=== PATIENT | male | born 2005 | race Caucasian/White ===

== ENCOUNTER → 2024-05-15 | Outpatient (CLI) | payer BC, SELFPAY ==
[2024-05-15 09:43] LABS: Basophils # (Auto) 0.1 Thou/mm3 (0.0-0.2); Basophils % (Auto) 1 % (0-2.5); Eosinophils # (Auto) 0.3 Thou/mm3 (0.0-0.5); Eosinophils % (Auto) 4 % (0-10); Hematocrit 42.3 % (41.0-53.0); Hemoglobin 14.3 g/dL (13.5-16.0); Immature Granulocytes % (Auto) 2 % (0-0); Immature Granulocytes Auto 0.13 Thou/mm3 (0.00-0.00); Lymphocytes # (Auto) 2.5 Thou/mm3 (1.0-4.8); Lymphocytes % (Auto) 30 % (10-50); Mean Corpuscular HGB Conc 33.8 g/dl (31.0-37.0); Mean Corpuscular Hemoglobin 30.7 pg (25.0-35.0); Mean Corpuscular Volume 91 fL (80-100); Monocytes # (Auto) 0.8 Thou/mm3 (0.0-0.8); Monocytes % (Auto) 9 % (0-12); Neutrophils # (Auto) 4.6 Thou/mm3 (1.8-7.7); Neutrophils % (Auto) 55 % (37-80); Nucleated Red Blood Cell % 0 /100 WBC (0); Platelet Count 264 Thou/mm3 (140-440); Red Blood Count 4.66 Miln/mm3 (4.50-5.90); White Blood Count 8.4 Thou/mm3 (3.8-10.6)
[2024-05-15 09:58] LABS: Alanine Aminotransferase 60 U/L (10-49); Albumin, Serum 4.7 gm/dL (3.5-5.0); Albumin/Globulin Ratio 1.7 (1.2-2.2); Alkaline Phosphatase 79 U/L (46-116); Anion Gap 7 (7-16); Aspartate Amino Transferase 36 U/L (0-34); BUN/Creatinine Ratio 13 Ratio (12-20); Bilirubin,Total 0.3 mg/dL (0.3-1.2); Blood Urea Nitrogen 10 mg/dL (9-23); Calcium 10.8 mg/dL (8.3-10.6); Calcium (Corrected) 10.8 mg/dL (8.5-10.1); Carbon Dioxide 26.7 mMol/L (20.0-31.0); Chloride 105 mMol/L (98-107); Creatinine (Component) 0.8 mg/dL (0.6-1.3); Globulin 2.8 gm/dL (2.3-3.5); Glucose 98 mg/dL (74-106); Osmolality,Calculated 276 (275-295); Potassium 4.3 mMol/L (3.4-5.1); Sodium 139 mMol/L (136-145); Thyroid Stimulating Hormone 3.13 uIU/mL (0.55-4.78); Total Protein 7.5 gm/dL (5.7-8.2); eGFR > 60 See Note
[2024-05-15 10:01] LABS: Lithium 1.17 mEq/L (1.00-1.20)
[2024-05-15 10:10] LABS: Glucose Estimated Average 91 mg/dL (80-131); Hemoglobin A1C 4.8 % Hgb (4.8-6.0)
[2024-05-15 11:15] LABS: Urea Breath Test Negative (Negative)
[2024-05-19 06:20] LABS: Valporic Acid (Depak)* 48.4 mg/L (50.0-100.0)
== END | disposition home or self-care (01) ==
LOC: COPL 08:38
PROVIDERS: PCP Family Medicine; Referring Provider Psychiatry & Neurology Child & Adolescent Psychiatry; Visit Provider Psychiatry & Neurology Child & Adolescent Psychiatry
DX: F25.1 Schizoaffective disorder, depressive type (principal); R11.0 Nausea; R73.9 Hyperglycemia, unspecified
CPT/HCPCS: 36415; 80053; 80164; 80178; 83013; 83014; 83036; 84443; 85025

== ENCOUNTER 2024-07-22 16:25 | Emergency (ER) | payer BC, SELFPAY ==
[2024-07-22 16:25] VITALS: BP 157/97; PULSE 94; RESP 16; TEMP 36.1; O2SAT 98; BMI 45.2
--- NOTE | 2024-07-22 16:30 | PC.NURSE ---
PT ARRIVED BY AMBULANCE WITH PPD ALSO. PER MEDIC, PT WAS FOUND BY MOTHER HANGING IN HIS ROOM WITH BELT AROUND NECK. AND BLUE NECK UP. MOTHER ABLE TO GET BELT OFF AND FAMILY CALLED 9-. PPD HAVE PLACE PT ON 5150 HOLD. PER MEDIC PT UNCOOPERATIVE AND CAN GET VIOLENT AND THEY HAD 10 OFFICERS ON SCENE FOR SAFETY. FAMILY STATED THAT PT RAN OUT OF HIS LITHIUM 7 DAYS AGO AND ONLY GOT A REFILL YESTERDAY. PT REFUSED ALL CARE FROM MEDIC'S IN ROUTE TO THE HOSPITAL INCLUDING VS'S.
--- NOTE | 2024-07-22 17:09 | PD.EDSUICD ---
ED Psych RME/HPI General Chief Complaint: Suicidal Stated Complaint: POST HANGING, 5150 HOLD Time Seen by Provider: 07/22/24 16:46 Arrival date/time: 07/22/24 16:25 RME / HPI RME / HPI Narrative: 19-year-old male patient suicidal at times. Onset of symptoms earlier today, patient put a belt around his neck, trying to kill himself. Family is worried patient family went inside the room and was noted to be slightly cyanotic on the face. They remove the belt right away and call 911. Patient was placed on 5150 hold. Apparently patient ran out of his lithium for more than a week, restart the medication yesterday. Denies any homicidal ideation. Patient is denying any neck pain. Denies any complaints. He wanted to go home. Related Data Home Medications ?Medication ?Instructions ?Recorded ?Confirmed lithium carbonate 150 mg capsule 150 mg PO QDAY 10/02/21 10/02/21 olanzapine 20 mg tablet 20 mg PO QDAY 10/02/21 10/02/21 prazosin 1 mg capsule 1 mg PO QDAY 10/02/21 10/02/21 trazodone 50 mg tablet 50 mg PO QDAY 10/02/21 10/02/21 Allergies Allergy/AdvReac Type Severity Reaction Status Date / Time codeine AdvReac Severe ALTERED Verified 11/16/20 19:33 Review of Systems Review of Systems Narrative Review of Systems: Review of system reviewed and within normal limits except mentioned in HPI ED Exam Narrative Physical exam: VITAL SIGNS: Reviewed. GENERAL APPEARANCE: Alert and interactive, follows commands, no acute distress, HEAD AND FACE: Non-traumatic. ENT: PERRL, pink conjunctivitis, eyelid no trauma, Mucous membrane moist. NECK: Supple, nontender, no nuchal rigidity. CHEST: No tenderness, no crepitus, no paradoxical movement, no retractions. LUNGS: Clear, well ventilated, symmetric, no rales, no wheezing, no ronchi, no stridor, good breath sounds bilaterally. HEART: Regular rate, regular rhythm, no murmur, no gallops. ABDOMEN: Soft, positive bowel sounds, nondistended, no guarding, nontender, no rebound, no masses, RECTAL: Deferred. GENITAL: Deferred. NEUROLOGICAL: Gross motor function intact sensory function intact, Appropriate for age. MUSCULOSKELETAL: low back nontender, full range of motion. EXTREMITIES: Nontender, full range of motion. SKIN: Color pink, dry, no rash, no lacerations, no abrasions, no contusions. LYMPHATICS: Deferred. Course Quality Measures none Orders Category Date Time Status Alcohol, Blood Medical Stat Lab 07/22/24 17:25 Completed CBC [CBC] Stat Lab 07/22/24 17:25 Completed CMP [Comprehensive Metabolic Panel] Stat Lab 07/22/24 17:25 Completed Drug Screen,Urine Stat Lab 07/22/24 17:04 Ordered Vital Signs Vital signs: Vital Signs Temperature 97 F 07/22/24 16:25 Pulse Rate 94 07/22/24 16:25 Respiratory Rate 16 07/22/24 16:25 Blood Pressure 157/97 H 07/22/24 16:25 Pulse Oximetry (%) 98 07/22/24 16:25 Oxygen Delivery Method Room Air 07/22/24 16:25 Psych MDM Narrative MDM Narrative:: Patient's workup today all came back unremarkable. Patient is medically cleared for crisis intervention Patient be accepted to [facility] Patient data External records reviewed:: None Clinical information provided by:: patient Social determinants that could affect healthcare access:: mental health Patient has the following chronic illnesses:: Schizophrenia How is presenting disease/condition affected by chronic disease/condition?: exacerbated by Evaluation data The following diagnostics were reviewed and interpreted by me:: lab results Lab and/or radiology exams considered but not ordered:: None Interpretation Summary: Laboratory couple came back unremarkable. Medications / Prescriptions Medications or Prescriptions considered but not ordered:: None none Medication administrations:: None Consultations Consultation(s) initiated? (list below): No Diagnosis Psych Differential Diagnosis: acute psychosis, chronic schizophrenia and suicidal ideation Most likely diagnosis given after review of the tests above:: Suicidal attempt Admission Indicated Admission indicated?: not indicated Admission Request Was there a request for admission?: No Disposition Plan Disposition Plan: Transfer Discharge Plan Plan Patient Disposition: [facility] Prescriptions/Referrals Prescriptions/Med Rec: No Action trazodone 50 mg tablet 50 mg PO QDAY prazosin 1 mg capsule 1 mg PO QDAY lithium carbonate 150 mg capsule 150 mg PO QDAY olanzapine 20 mg tablet 20 mg PO QDAY Problem List Clinical Impression: Suicide attempt Patient/Caregiver Discharge Instructions Print Language: Montserratian Stand Alone Forms: Brandi Award Info., Patient Portal Info Letter
[2024-07-22 17:43] LABS: Basophils # (Auto) 0.1 Thou/mm3 (0.0-0.2); Basophils % (Auto) 1 % (0-2.5); Eosinophils # (Auto) 0.2 Thou/mm3 (0.0-0.5); Eosinophils % (Auto) 2 % (0-10); Hematocrit 43.8 % (41.0-53.0); Hemoglobin 14.9 g/dL (13.5-16.0); Immature Granulocytes % (Auto) 1 % (0-0); Immature Granulocytes Auto 0.05 Thou/mm3 (0.00-0.00); Lymphocytes # (Auto) 2.1 Thou/mm3 (1.0-4.8); Lymphocytes % (Auto) 21 % (10-50); Mean Corpuscular Hemoglobin 30.7 pg (25.0-35.0); Mean Corpuscular Volume 90 fL (80-100); Monocytes # (Auto) 0.8 Thou/mm3 (0.0-0.8); Monocytes % (Auto) 8 % (0-12); Neutrophils # (Auto) 6.8 Thou/mm3 (1.8-7.7); Neutrophils % (Auto) 68 % (37-80); Nucleated Red Blood Cell % 0 /100 WBC (0); Platelet Count 271 Thou/mm3 (140-440); RDW Standard Deviation 40.4 fL (35.1-43.9); Red Blood Count 4.85 Miln/mm3 (4.50-5.90)
--- NOTE | 2024-07-22 17:56 | PC.CC ---
Pt Rupinder Weber, is a 19-year-old male brought in to ED by EMT on a 5150 DTS hold. Pot Runner met with pt to complete Mental Heal Evaluation. Pt presents disheveled with flat affect. Pt was sit on gurney and was difficult to make direct eye contact as encounter progressed. Pt is noted to be alert and oriented to person, current place and year. Pt reports hx of mental health and reports being noncompliant with mental health medication due to running out of medication and pharmacy unable to fill. Pt repost history of previous 5150 holds, x5 with most recent September 2021. Pt reports previous suicide attempt x1. Pt placed in ED 7. Pt reports living at home with Aria Branham [phone] [place], [place] [id number]. ED Ferry Boat Captain encountered Pt for mental health evaluation. ED Ferry Boat Captain used the following interventions: empathy, unconditional positive regard, Socratic dialogue including clarifying and probing questions. Pt was receptive and was able to disclosed having an interrupted suicide attempt via hanging self by rope/belt. Pt reported frustration with inability to have mental health medication filled by pharmacy and experiencing active command hallucinations. Pt reported extensive hx of mental health and hospitalizations. ED Ferry Boat Captain used C-SSRS to support process and assessed for SI/HI, self-harming behaviors, method, access to lethal means, plan/intent. Pt was responsive to mental health evaluation and reported SI. ED Ferry Boat Captain consulted with auto mechanic supervisor Meggan Yanes and it was agreed upheld 5150 DTS hold due to client reporting SI and having an interrupted suicide attempt. ED disaster recovery coordinator informed Pt of 5150 DTS hold being upheld. Pt stated he understood process due to extensive hx of previous hospitalizations. ED Ferry Boat Captain submitted psychiatric packet to all accepting [facility] facilities via [facility] Care.
[2024-07-22 17:57] LABS: Alanine Aminotransferase 77 U/L (10-49); Albumin, Serum 4.9 gm/dL (3.5-5.0); Albumin/Globulin Ratio 1.5 (1.2-2.2); Alcohol, Blood Medical < 10.0 mg/dL (0-10.0); Alkaline Phosphatase 74 U/L (46-116); Anion Gap 9 (7-16); Aspartate Amino Transferase 63 U/L (0-34); BUN/Creatinine Ratio 10 Ratio (12-20); Bilirubin,Total 0.5 mg/dL (0.3-1.2); Blood Urea Nitrogen 7 mg/dL (9-23); Calcium 10.4 mg/dL (8.3-10.6); Calcium (Corrected) 10.4 mg/dL (8.5-10.1); Chloride 103 mMol/L (98-107); Creatinine (Component) 0.7 mg/dL (0.6-1.3); Estimated Creatinine Clearance 260.1 mL/min (>60); Globulin 3.2 gm/dL (2.3-3.5); Glucose 95 mg/dL (74-106); Osmolality,Calculated 279 (275-295); Potassium 3.9 mMol/L (3.4-5.1); Sodium 141 mMol/L (136-145); Total Protein 8.1 gm/dL (5.7-8.2); eGFR > 60 See Note
--- NOTE | 2024-07-22 18:38 | PC.CC ---
ED Schedule Clerk received a telephone call from Brain at [facility] [phone], in regards to Pt medical reports. Engineering Manager Electronics transferred call over to Trista Anderson [phone].
--- NOTE | 2024-07-22 18:42 | PC.NURSE ---
[facility] called for report and report given.
--- NOTE | 2024-07-22 18:51 | PC.CC ---
ED Collar Setter Overlock received call from Belinda Alvarez [phone] in regard to communicating with attending nurse. Attending nurse information given to intake.
--- NOTE | 2024-07-22 18:55 | PC.CC ---
ED Store Promoter received telephone call from Cameron calling from [facility] with acceptance for Pt. Accepting doctor will be Dr. Turner to [address]. Transportation requesting after 9:30pm. Nurse to Nurse at [phone].
[2024-07-22 20:40] VITALS: BP 135/78; PULSE 80; RESP 20; TEMP 36.8; O2SAT 98
[2024-07-22 21:24] LABS: Amphetamine/Methamp Scrn,U Negative (Negative); Barbiturate Screen,Urine Negative (Negative); Benzodiazepines Screen,Urine Negative (Negative); Benzoylecgonine Screen, Ur Negative (Negative); Fentanyl Screen,Urine Negative (Negative); Opiate Screen,Urine Negative (Negative); THC Screen,Urine Negative (Negative)
--- NOTE | 2024-07-22 21:35 | PC.NURSE ---
Called report to from [facility]. all questions answered.
--- NOTE | 2024-07-22 22:31 | PC.NURSE ---
FATHER CALLED WITH NOTICE OF ACCEPTANCE TO [facility].
== END 2024-07-22 21:52 ==
LOC: SERX 19:22
PROVIDERS: Nurse Practitioner Family; Emergency Provider Emergency Medicine; PCP Family Medicine
DX: T14.91XA Suicide attempt, initial encounter (principal); X83.8XXA Intentional self-harm by other specified means, initial encounter; Y92.003 Bedroom of unspecified non-institutional (private) residence as the place of occurrence of the external cause; Z75.1 Person awaiting admission to adequate facility elsewhere
CPT/HCPCS: 36415; 80053; 80307; 80320; 85025; 90839; 96127; 99285; G0480

== ENCOUNTER → 2024-08-02 | Outpatient (CLI) | payer BC, SELFPAY ==
--- NOTE | 2024-08-02 09:49 | EKG_ITS ---
[facility] Test Date: 2024-08-02 Pat Name: SOURAV CORONEL Department: Room: - Gender: Male Repair Manager: RT STUDENT : 2005 Requested By: Chidi Gomes Order Number: [id number] Reading MD: Chidi Gomes Measurements Intervals [place] Rate: 74 P: 38 [place]: 166 QRS: 23 QRSD: 110 T: 51 QT: 368 QTc: 411 Interpretive Statements SINUS RHYTHM WITH SINUS ARRHYTHMIA No previous ECG available for comparison /store/S0/[id number]
[2024-08-02 10:08] LABS: Basophils % (Auto) 1 % (0-2.5); Eosinophils # (Auto) 0.3 Thou/mm3 (0.0-0.5); Eosinophils % (Auto) 4 % (0-10); Hematocrit 44.1 % (41.0-53.0); Hemoglobin 14.8 g/dL (13.5-16.0); Immature Granulocytes % (Auto) 1 % (0-0); Immature Granulocytes Auto 0.06 Thou/mm3 (0.00-0.00); Lymphocytes # (Auto) 2.2 Thou/mm3 (1.0-4.8); Lymphocytes % (Auto) 32 % (10-50); Mean Corpuscular HGB Conc 33.6 g/dl (31.0-37.0); Mean Corpuscular Hemoglobin 30.1 pg (25.0-35.0); Mean Corpuscular Volume 90 fL (80-100); Monocytes # (Auto) 0.5 Thou/mm3 (0.0-0.8); Monocytes % (Auto) 7 % (0-12); Neutrophils # (Auto) 3.9 Thou/mm3 (1.8-7.7); Neutrophils % (Auto) 56 % (37-80); Nucleated Red Blood Cell % 0 /100 WBC (0); Platelet Count 247 Thou/mm3 (140-440); RDW Standard Deviation 39.8 fL (35.1-43.9); Red Blood Count 4.92 Miln/mm3 (4.50-5.90); White Blood Count 6.9 Thou/mm3 (3.8-10.6)
[2024-08-02 10:43] LABS: Amphetamine/Methamp Scrn,U Negative (Negative); Barbiturate Screen,Urine Negative (Negative); Benzodiazepines Screen,Urine Negative (Negative); Benzoylecgonine Screen, Ur Negative (Negative); Fentanyl Screen,Urine Negative (Negative); Opiate Screen,Urine Negative (Negative); THC Screen,Urine Negative (Negative)
[2024-08-02 10:44] LABS: Alanine Aminotransferase 78 U/L (10-49); Albumin, Serum 4.6 gm/dL (3.5-5.0); Albumin/Globulin Ratio 1.5 (1.2-2.2); Alkaline Phosphatase 76 U/L (46-116); Anion Gap 7 (7-16); Aspartate Amino Transferase 40 U/L (0-34); BUN/Creatinine Ratio 10 Ratio (12-20); Bilirubin,Total 0.5 mg/dL (0.3-1.2); Blood Urea Nitrogen 7 mg/dL (9-23); C-Reactive Protein 0.9 mg/dL (0.0-0.9); Carbon Dioxide 28.9 mMol/L (20.0-31.0); Chloride 106 mMol/L (98-107); Creatine Kinase 77 U/L (34-171); Creatinine (Component) 0.7 mg/dL (0.6-1.3); Glucose 96 mg/dL (74-106); Osmolality,Calculated 281 (275-295); Potassium 4.2 mMol/L (3.4-5.1); Sodium 142 mMol/L (136-145); Total Protein 7.6 gm/dL (5.7-8.2); eGFR > 60 See Note
[2024-08-02 11:06] LABS: Thyroid Stimulating Hormone 0.79 uIU/mL (0.55-4.78); Troponin I < 0.020 ng/mL (0.0-0.045)
[2024-08-02 15:43] LABS: T4 (Thyroxine) 10.4 mcg/dL (4.5-10.9)
[2024-08-02 23:53] LABS: Vitamin D 25 Hydroxy Total 25.4 ng/mL (7.3-40.2)
[2024-08-07 06:56] LABS: hs-CRP* 7.2 mg/L
== END | disposition home or self-care (01) ==
PROVIDERS: PCP Family Medicine; Referring Provider Psychiatry & Neurology Child & Adolescent Psychiatry; Visit Provider Psychiatry & Neurology Child & Adolescent Psychiatry
DX: F25.1 Schizoaffective disorder, depressive type (principal)
CPT/HCPCS: 36415; 80053; 80307; 82306; 82550; 84436; 84443; 84484; 85025; 86140; 86141; 93005

== ENCOUNTER → 2024-08-10 | Outpatient (CLI) | payer BC, SELFPAY ==
[2024-08-10 17:42] LABS: Basophils # (Auto) 0.1 Thou/mm3 (0.0-0.2); Basophils % (Auto) 1 % (0-2.5); Eosinophils # (Auto) 0.2 Thou/mm3 (0.0-0.5); Eosinophils % (Auto) 2 % (0-10); Hematocrit 40.4 % (41.0-53.0); Hemoglobin 13.8 g/dL (13.5-16.0); Immature Granulocytes % (Auto) 2 % (0-0); Immature Granulocytes Auto 0.15 Thou/mm3 (0.00-0.00); Lymphocytes # (Auto) 2.8 Thou/mm3 (1.0-4.8); Lymphocytes % (Auto) 35 % (10-50); Mean Corpuscular HGB Conc 34.2 g/dl (31.0-37.0); Mean Corpuscular Hemoglobin 30.2 pg (25.0-35.0); Mean Corpuscular Volume 88 fL (80-100); Monocytes # (Auto) 0.9 Thou/mm3 (0.0-0.8); Monocytes % (Auto) 11 % (0-12); Neutrophils % (Auto) 49 % (37-80); Nucleated Red Blood Cell % 0 /100 WBC (0); Platelet Count 248 Thou/mm3 (140-440); RDW Standard Deviation 40.1 fL (35.1-43.9); Red Blood Count 4.57 Miln/mm3 (4.50-5.90); White Blood Count 8.1 Thou/mm3 (3.8-10.6)
== END | disposition home or self-care (01) ==
LOC: COPL 16:26
PROVIDERS: PCP Family Medicine; Referring Provider Psychiatry & Neurology Child & Adolescent Psychiatry; Visit Provider Psychiatry & Neurology Child & Adolescent Psychiatry
DX: F25.1 Schizoaffective disorder, depressive type (principal); Z79.899 Other long term (current) drug therapy
CPT/HCPCS: 36415; 85025

== ENCOUNTER → 2024-08-17 | Outpatient (CLI) | payer BC, SELFPAY ==
[2024-08-17 15:24] LABS: Basophils # (Auto) 0.1 Thou/mm3 (0.0-0.2); Basophils % (Auto) 1 % (0-2.5); Eosinophils # (Auto) 0.1 Thou/mm3 (0.0-0.5); Eosinophils % (Auto) 1 % (0-10); Hematocrit 40.6 % (41.0-53.0); Immature Granulocytes % (Auto) 1 % (0-0); Lymphocytes # (Auto) 2.8 Thou/mm3 (1.0-4.8); Lymphocytes % (Auto) 34 % (10-50); Mean Corpuscular HGB Conc 34.5 g/dl (31.0-37.0); Mean Corpuscular Hemoglobin 30.6 pg (25.0-35.0); Mean Corpuscular Volume 89 fL (80-100); Monocytes # (Auto) 0.8 Thou/mm3 (0.0-0.8); Monocytes % (Auto) 10 % (0-12); Neutrophils # (Auto) 4.3 Thou/mm3 (1.8-7.7); Neutrophils % (Auto) 52 % (37-80); Nucleated Red Blood Cell % 0 /100 WBC (0); Platelet Count 249 Thou/mm3 (140-440); RDW Standard Deviation 40.7 fL (35.1-43.9); Red Blood Count 4.58 Miln/mm3 (4.50-5.90); White Blood Count 8.2 Thou/mm3 (3.8-10.6)
== END | disposition home or self-care (01) ==
LOC: COPL 14:08
PROVIDERS: PCP Family Medicine; Referring Provider Psychiatry & Neurology Child & Adolescent Psychiatry; Visit Provider Psychiatry & Neurology Child & Adolescent Psychiatry
DX: F25.1 Schizoaffective disorder, depressive type (principal); Z79.899 Other long term (current) drug therapy
CPT/HCPCS: 36415; 85025

== ENCOUNTER → 2024-08-24 | Outpatient (CLI) | payer BC, SELFPAY ==
[2024-08-24 16:40] LABS: Basophils % (Auto) 1 % (0-2.5); Eosinophils % (Auto) 0 % (0-10); Hematocrit 41.5 % (41.0-53.0); Immature Granulocytes % (Auto) 2 % (0-0); Immature Granulocytes Auto 0.14 Thou/mm3 (0.00-0.00); Lymphocytes # (Auto) 2.2 Thou/mm3 (1.0-4.8); Lymphocytes % (Auto) 27 % (10-50); Mean Corpuscular HGB Conc 33.7 g/dl (31.0-37.0); Mean Corpuscular Hemoglobin 30.5 pg (25.0-35.0); Mean Corpuscular Volume 90 fL (80-100); Monocytes # (Auto) 0.6 Thou/mm3 (0.0-0.8); Monocytes % (Auto) 7 % (0-12); Neutrophils # (Auto) 5.2 Thou/mm3 (1.8-7.7); Neutrophils % (Auto) 64 % (37-80); Nucleated Red Blood Cell % 0 /100 WBC (0); Platelet Count 265 Thou/mm3 (140-440); RDW Standard Deviation 41.1 fL (35.1-43.9); Red Blood Count 4.59 Miln/mm3 (4.50-5.90); White Blood Count 8.2 Thou/mm3 (3.8-10.6)
== END | disposition home or self-care (01) ==
LOC: COPL 15:05
PROVIDERS: PCP Family Medicine; Referring Provider Psychiatry & Neurology Child & Adolescent Psychiatry; Visit Provider Psychiatry & Neurology Child & Adolescent Psychiatry
DX: F25.1 Schizoaffective disorder, depressive type (principal); Z79.899 Other long term (current) drug therapy
CPT/HCPCS: 36415; 85025

== ENCOUNTER → 2024-08-31 | Outpatient (CLI) | payer BC, SELFPAY ==
[2024-08-31 11:41] LABS: Basophils % (Auto) 1 % (0-2.5); Eosinophils % (Auto) 0 % (0-10); Hematocrit 41.6 % (41.0-53.0); Hemoglobin 14.2 g/dL (13.5-16.0); Immature Granulocytes % (Auto) 2 % (0-0); Lymphocytes # (Auto) 1.9 Thou/mm3 (1.0-4.8); Lymphocytes % (Auto) 33 % (10-50); Mean Corpuscular HGB Conc 34.1 g/dl (31.0-37.0); Mean Corpuscular Hemoglobin 30.2 pg (25.0-35.0); Mean Corpuscular Volume 89 fL (80-100); Monocytes # (Auto) 0.4 Thou/mm3 (0.0-0.8); Monocytes % (Auto) 8 % (0-12); Neutrophils # (Auto) 3.3 Thou/mm3 (1.8-7.7); Neutrophils % (Auto) 57 % (37-80); Nucleated Red Blood Cell % 0 /100 WBC (0); Platelet Count 224 Thou/mm3 (140-440); RDW Standard Deviation 40.2 fL (35.1-43.9); White Blood Count 5.7 Thou/mm3 (3.8-10.6)
[2024-08-31 12:12] LABS: Lithium 0.22 mEq/L (1.00-1.20)
[2024-09-05 06:39] LABS: Valporic Acid (Depak)* 89.7 mg/L (50.0-100.0)
== END | disposition home or self-care (01) ==
LOC: COPL 11:01
PROVIDERS: PCP Family Medicine; Referring Provider Psychiatry & Neurology Child & Adolescent Psychiatry; Visit Provider Psychiatry & Neurology Child & Adolescent Psychiatry
DX: F25.1 Schizoaffective disorder, depressive type (principal)
CPT/HCPCS: 36415; 80164; 80178; 85025

== ENCOUNTER → 2024-09-08 | Outpatient (CLI) | payer BC, SELFPAY ==
[2024-09-08 17:37] LABS: Basophils % (Auto) 1 % (0-2.5); Eosinophils % (Auto) 0 % (0-10); Hematocrit 41.7 % (41.0-53.0); Hemoglobin 14.2 g/dL (13.5-16.0); Immature Granulocytes % (Auto) 2 % (0-0); Immature Granulocytes Auto 0.16 Thou/mm3 (0.00-0.00); Lymphocytes # (Auto) 2.3 Thou/mm3 (1.0-4.8); Lymphocytes % (Auto) 30 % (10-50); Mean Corpuscular HGB Conc 34.1 g/dl (31.0-37.0); Mean Corpuscular Hemoglobin 30.3 pg (25.0-35.0); Mean Corpuscular Volume 89 fL (80-100); Monocytes # (Auto) 0.7 Thou/mm3 (0.0-0.8); Monocytes % (Auto) 9 % (0-12); Neutrophils # (Auto) 4.6 Thou/mm3 (1.8-7.7); Neutrophils % (Auto) 59 % (37-80); Nucleated Red Blood Cell % 0 /100 WBC (0); Platelet Count 231 Thou/mm3 (140-440); RDW Standard Deviation 40.9 fL (35.1-43.9); Red Blood Count 4.69 Miln/mm3 (4.50-5.90); White Blood Count 7.8 Thou/mm3 (3.8-10.6)
== END | disposition home or self-care (01) ==
LOC: COPL 15:45
PROVIDERS: PCP Family Medicine; Referring Provider Psychiatry & Neurology Child & Adolescent Psychiatry; Visit Provider Psychiatry & Neurology Child & Adolescent Psychiatry
DX: F25.1 Schizoaffective disorder, depressive type (principal); Z79.899 Other long term (current) drug therapy
CPT/HCPCS: 36415; 85025

== ENCOUNTER → 2024-09-14 | Outpatient (CLI) | payer BC, SELFPAY ==
[2024-09-14 15:23] LABS: Basophils % (Auto) 1 % (0-2.5); Eosinophils % (Auto) 1 % (0-10); Hematocrit 40.3 % (41.0-53.0); Hemoglobin 13.4 g/dL (13.5-16.0); Immature Granulocytes % (Auto) 2 % (0-0); Immature Granulocytes Auto 0.14 Thou/mm3 (0.00-0.00); Lymphocytes # (Auto) 1.8 Thou/mm3 (1.0-4.8); Lymphocytes % (Auto) 28 % (10-50); Mean Corpuscular HGB Conc 33.3 g/dl (31.0-37.0); Mean Corpuscular Hemoglobin 30.1 pg (25.0-35.0); Mean Corpuscular Volume 91 fL (80-100); Monocytes # (Auto) 0.6 Thou/mm3 (0.0-0.8); Monocytes % (Auto) 10 % (0-12); Neutrophils # (Auto) 3.7 Thou/mm3 (1.8-7.7); Neutrophils % (Auto) 59 % (37-80); Nucleated Red Blood Cell % 0 /100 WBC (0); Platelet Count 198 Thou/mm3 (140-440); RDW Standard Deviation 41.6 fL (35.1-43.9); Red Blood Count 4.45 Miln/mm3 (4.50-5.90); White Blood Count 6.4 Thou/mm3 (3.8-10.6)
== END | disposition home or self-care (01) ==
LOC: COPL 13:35
PROVIDERS: PCP Family Medicine; Referring Provider Psychiatry & Neurology Child & Adolescent Psychiatry; Visit Provider Psychiatry & Neurology Child & Adolescent Psychiatry
DX: F25.1 Schizoaffective disorder, depressive type (principal); Z79.899 Other long term (current) drug therapy
CPT/HCPCS: 36415; 85025

== ENCOUNTER → 2024-09-29 | Outpatient (CLI) | payer BC, SELFPAY ==
[2024-09-29 08:32] LABS: Basophils # (Auto) 0.1 Thou/mm3 (0.0-0.2); Basophils % (Auto) 1 % (0-2.5); Eosinophils % (Auto) 0 % (0-10); Hematocrit 39.9 % (41.0-53.0); Hemoglobin 13.5 g/dL (13.5-16.0); Immature Granulocytes % (Auto) 1 % (0-0); Immature Granulocytes Auto 0.07 Thou/mm3 (0.00-0.00); Lymphocytes % (Auto) 37 % (10-50); Mean Corpuscular HGB Conc 33.8 g/dl (31.0-37.0); Mean Corpuscular Hemoglobin 30.6 pg (25.0-35.0); Mean Corpuscular Volume 91 fL (80-100); Monocytes # (Auto) 0.6 Thou/mm3 (0.0-0.8); Monocytes % (Auto) 10 % (0-12); Neutrophils # (Auto) 2.8 Thou/mm3 (1.8-7.7); Neutrophils % (Auto) 50 % (37-80); Nucleated Red Blood Cell % 0 /100 WBC (0); Platelet Count 214 Thou/mm3 (140-440); RDW Standard Deviation 42.6 fL (35.1-43.9); Red Blood Count 4.41 Miln/mm3 (4.50-5.90); White Blood Count 5.5 Thou/mm3 (3.8-10.6)
== END | disposition home or self-care (01) ==
LOC: COPL 06:44
PROVIDERS: PCP Family Medicine; Referring Provider Psychiatry & Neurology Child & Adolescent Psychiatry; Visit Provider Psychiatry & Neurology Child & Adolescent Psychiatry
DX: F25.1 Schizoaffective disorder, depressive type (principal); Z79.899 Other long term (current) drug therapy
CPT/HCPCS: 36415; 85025

== ENCOUNTER → 2024-10-05 | Outpatient (CLI) | payer BC, SELFPAY ==
[2024-10-05 15:30] LABS: Basophils # (Auto) 0.1 Thou/mm3 (0.0-0.2); Basophils % (Auto) 1 % (0-2.5); Eosinophils % (Auto) 0 % (0-10); Hematocrit 41.8 % (41.0-53.0); Hemoglobin 14.1 g/dL (13.5-16.0); Immature Granulocytes % (Auto) 4 % (0-0); Immature Granulocytes Auto 0.24 Thou/mm3 (0.00-0.00); Lymphocytes # (Auto) 2.5 Thou/mm3 (1.0-4.8); Lymphocytes % (Auto) 36 % (10-50); Mean Corpuscular HGB Conc 33.7 g/dl (31.0-37.0); Mean Corpuscular Hemoglobin 30.4 pg (25.0-35.0); Mean Corpuscular Volume 90 fL (80-100); Monocytes # (Auto) 0.7 Thou/mm3 (0.0-0.8); Monocytes % (Auto) 10 % (0-12); Neutrophils # (Auto) 3.5 Thou/mm3 (1.8-7.7); Neutrophils % (Auto) 50 % (37-80); Nucleated Red Blood Cell % 0 /100 WBC (0); Platelet Count 238 Thou/mm3 (140-440); RDW Standard Deviation 42.2 fL (35.1-43.9); Red Blood Count 4.64 Miln/mm3 (4.50-5.90); White Blood Count 6.9 Thou/mm3 (3.8-10.6)
[2024-10-05 15:56] LABS: Alanine Aminotransferase 130 U/L (10-49); Albumin, Serum 4.4 gm/dL (3.5-5.0); Albumin/Globulin Ratio 1.5 (1.2-2.2); Alkaline Phosphatase 84 U/L (46-116); Anion Gap 9 (7-16); Aspartate Amino Transferase 105 U/L (0-34); BUN/Creatinine Ratio 9 Ratio (12-20); Bilirubin,Total 0.5 mg/dL (0.3-1.2); Blood Urea Nitrogen 7 mg/dL (9-23); Calcium 9.8 mg/dL (8.3-10.6); Calcium (Corrected) 9.8 mg/dL (8.5-10.1); Carbon Dioxide 28.8 mMol/L (20.0-31.0); Chloride 107 mMol/L (98-107); Creatinine (Component) 0.8 mg/dL (0.6-1.3); Globulin 2.9 gm/dL (2.3-3.5); Glucose 164 mg/dL (74-106); Osmolality,Calculated 290 (275-295); Potassium 4.2 mMol/L (3.4-5.1); Sodium 145 mMol/L (136-145); Total Protein 7.3 gm/dL (5.7-8.2); eGFR > 60 See Note
[2024-10-11 06:47] LABS: Valporic Acid (Depak)* 66.4 mg/L (50.0-100.0)
== END | disposition home or self-care (01) ==
LOC: COPL 14:07
PROVIDERS: PCP Family Medicine; Referring Provider Psychiatry & Neurology Child & Adolescent Psychiatry; Visit Provider Psychiatry & Neurology Child & Adolescent Psychiatry
DX: F25.1 Schizoaffective disorder, depressive type (principal)
CPT/HCPCS: 36415; 80053; 80164; 85025

== ENCOUNTER → 2024-10-26 | Outpatient (CLI) | payer BC, SELFPAY ==
[2024-10-26 16:37] LABS: Basophils % (Auto) 0 % (0-2.5); Eosinophils % (Auto) 0 % (0-10); Hematocrit 41.1 % (41.0-53.0); Hemoglobin 13.9 g/dL (13.5-16.0); Immature Granulocytes % (Auto) 0 % (0-0); Immature Granulocytes Auto 0.04 Thou/mm3 (0.00-0.00); Lymphocytes # (Auto) 1.7 Thou/mm3 (1.0-4.8); Lymphocytes % (Auto) 18 % (10-50); Mean Corpuscular HGB Conc 33.8 g/dl (31.0-37.0); Mean Corpuscular Hemoglobin 30.3 pg (25.0-35.0); Mean Corpuscular Volume 90 fL (80-100); Monocytes # (Auto) 0.5 Thou/mm3 (0.0-0.8); Monocytes % (Auto) 5 % (0-12); Neutrophils # (Auto) 7.1 Thou/mm3 (1.8-7.7); Neutrophils % (Auto) 76 % (37-80); Nucleated Red Blood Cell % 0 /100 WBC (0); Platelet Count 249 Thou/mm3 (140-440); RDW Standard Deviation 41.5 fL (35.1-43.9); Red Blood Count 4.58 Miln/mm3 (4.50-5.90); White Blood Count 9.4 Thou/mm3 (3.8-10.6)
== END | disposition home or self-care (01) ==
LOC: COPL 14:23
PROVIDERS: PCP Family Medicine; Referring Provider Psychiatry & Neurology Child & Adolescent Psychiatry; Visit Provider Psychiatry & Neurology Child & Adolescent Psychiatry
DX: F25.1 Schizoaffective disorder, depressive type (principal)
CPT/HCPCS: 36415; 85025

== ENCOUNTER → 2024-11-09 | Outpatient (CLI) | payer BC, SELFPAY ==
[2024-11-09 16:54] LABS: Basophils # (Auto) 0.1 Thou/mm3 (0.0-0.2); Basophils % (Auto) 1 % (0-2.5); Eosinophils % (Auto) 0 % (0-10); Hematocrit 41.9 % (41.0-53.0); Hemoglobin 14.1 g/dL (13.5-16.0); Immature Granulocytes % (Auto) 2 % (0-0); Immature Granulocytes Auto 0.16 Thou/mm3 (0.00-0.00); Lymphocytes # (Auto) 2.6 Thou/mm3 (1.0-4.8); Lymphocytes % (Auto) 27 % (10-50); Mean Corpuscular HGB Conc 33.7 g/dl (31.0-37.0); Mean Corpuscular Hemoglobin 30.5 pg (25.0-35.0); Mean Corpuscular Volume 91 fL (80-100); Monocytes # (Auto) 0.8 Thou/mm3 (0.0-0.8); Monocytes % (Auto) 8 % (0-12); Neutrophils # (Auto) 5.9 Thou/mm3 (1.8-7.7); Neutrophils % (Auto) 62 % (37-80); Nucleated Red Blood Cell % 0 /100 WBC (0); Platelet Count 245 Thou/mm3 (140-440); RDW Standard Deviation 41.4 fL (35.1-43.9); Red Blood Count 4.63 Miln/mm3 (4.50-5.90); White Blood Count 9.5 Thou/mm3 (3.8-10.6)
== END | disposition home or self-care (01) ==
LOC: COPL 15:31
PROVIDERS: PCP Family Medicine; Referring Provider Psychiatry & Neurology Child & Adolescent Psychiatry; Visit Provider Psychiatry & Neurology Child & Adolescent Psychiatry
DX: F25.1 Schizoaffective disorder, depressive type (principal); Z79.899 Other long term (current) drug therapy
CPT/HCPCS: 36415; 85025

== ENCOUNTER → 2024-11-16 | Outpatient (CLI) | payer BC, SELFPAY ==
[2024-11-16 16:33] LABS: Basophils # (Auto) 0.1 Thou/mm3 (0.0-0.2); Basophils % (Auto) 1 % (0-2.5); Eosinophils % (Auto) 0 % (0-10); Hematocrit 43.8 % (41.0-53.0); Hemoglobin 14.5 g/dL (13.5-16.0); Immature Granulocytes % (Auto) 1 % (0-0); Lymphocytes % (Auto) 28 % (10-50); Mean Corpuscular HGB Conc 33.1 g/dl (31.0-37.0); Mean Corpuscular Hemoglobin 30.3 pg (25.0-35.0); Mean Corpuscular Volume 91 fL (80-100); Monocytes # (Auto) 0.4 Thou/mm3 (0.0-0.8); Monocytes % (Auto) 6 % (0-12); Neutrophils # (Auto) 4.7 Thou/mm3 (1.8-7.7); Neutrophils % (Auto) 65 % (37-80); Nucleated Red Blood Cell % 0 /100 WBC (0); Platelet Count 256 Thou/mm3 (140-440); RDW Standard Deviation 43.2 fL (35.1-43.9); Red Blood Count 4.79 Miln/mm3 (4.50-5.90); White Blood Count 7.3 Thou/mm3 (3.8-10.6)
[2024-11-16 16:45] LABS: Alanine Aminotransferase 101 U/L (10-49); Albumin, Serum 4.7 gm/dL (3.5-5.0); Albumin/Globulin Ratio 1.5 (1.2-2.2); Alkaline Phosphatase 76 U/L (46-116); Anion Gap 12 (7-16); Aspartate Amino Transferase 102 U/L (0-34); BUN/Creatinine Ratio 9 Ratio (12-20); Bilirubin,Total 0.4 mg/dL (0.3-1.2); Blood Urea Nitrogen 8 mg/dL (9-23); Calcium 9.3 mg/dL (8.3-10.6); Calcium (Corrected) 9.3 mg/dL (8.5-10.1); Carbon Dioxide 27.4 mMol/L (20.0-31.0); Chloride 103 mMol/L (98-107); Creatinine (Component) 0.9 mg/dL (0.6-1.3); Globulin 3.2 gm/dL (2.3-3.5); Glucose 221 mg/dL (74-106); Osmolality,Calculated 288 (275-295); Sodium 142 mMol/L (136-145); Thyroid Stimulating Hormone 0.98 uIU/mL (0.55-4.78); Total Protein 7.9 gm/dL (5.7-8.2); eGFR > 60 See Note
[2024-11-21 07:08] LABS: Valporic Acid (Depak)* 76.4 mg/L (50.0-100.0)
== END | disposition home or self-care (01) ==
LOC: COPL 15:16
PROVIDERS: PCP Family Medicine; Referring Provider Psychiatry & Neurology Child & Adolescent Psychiatry; Visit Provider Psychiatry & Neurology Child & Adolescent Psychiatry
DX: F25.1 Schizoaffective disorder, depressive type (principal)
CPT/HCPCS: 36415; 80053; 80164; 84443; 85025

== ENCOUNTER → 2024-12-15 | Outpatient (CLI) | payer BC, SELFPAY ==
[2024-12-15 14:08] LABS: Misc Send Out* See Sep Rpt
[2024-12-21 07:00] LABS: Valporic Acid (Depak)* 73.3 mg/L (50.0-100.0)
== END | disposition home or self-care (01) ==
LOC: COPL 13:46
PROVIDERS: PCP Family Medicine; Referring Provider Psychiatry & Neurology Child & Adolescent Psychiatry; Visit Provider Psychiatry & Neurology Child & Adolescent Psychiatry
DX: F25.1 Schizoaffective disorder, depressive type (principal)
CPT/HCPCS: 36415; 80164

== ENCOUNTER → 2025-01-05 | Outpatient (CLI) | payer BC, SELFPAY ==
[2025-01-05 11:24] LABS: Basophils # (Auto) 0.0 Thou/mm3 (0.0-0.2); Basophils % (Auto) 1 % (0-2.5); Eosinophils # (Auto) 0.0 Thou/mm3 (0.0-0.5); Eosinophils % (Auto) 0 % (0-10); Hematocrit 44.3 % (41.0-53.0); Hemoglobin 14.8 g/dL (13.5-16.0); Immature Granulocytes Auto 0.07 Thou/mm3 (0.00-0.00); Lymphocytes # (Auto) 2.5 Thou/mm3 (1.0-4.8); Lymphocytes % (Auto) 45 % (10-50); Mean Corpuscular HGB Conc 33.4 g/dl (31.0-37.0); Mean Corpuscular Hemoglobin 30.6 pg (25.0-35.0); Mean Corpuscular Volume 92 fL (80-100); Monocytes # (Auto) 0.5 Thou/mm3 (0.0-0.8); Monocytes % (Auto) 8 % (0-12); Neutrophils # (Auto) 2.5 Thou/mm3 (1.8-7.7); Neutrophils % (Auto) 45 % (37-80); Nucleated Red Blood Cell # 0.00 Thou/mm3 (0.00-0.00); Nucleated Red Blood Cell % 0 /100 WBC (0); Platelet Count 221 Thou/mm3 (140-440); RDW Standard Deviation 43.8 fL (35.1-43.9); Red Blood Count 4.84 Miln/mm3 (4.50-5.90); White Blood Count 5.5 Thou/mm3 (3.8-10.6)
== END | disposition home or self-care (01) ==
LOC: COPL 10:46
PROVIDERS: PCP Family Medicine; Referring Provider Psychiatry & Neurology Child & Adolescent Psychiatry; Visit Provider Psychiatry & Neurology Child & Adolescent Psychiatry
DX: F25.1 Schizoaffective disorder, depressive type (principal); Z79.899 Other long term (current) drug therapy
CPT/HCPCS: 36415; 85025

== ENCOUNTER → 2025-01-29 | Outpatient (CLI) | payer BC, SELFPAY ==
[2025-01-29 16:11] LABS: Basophils # (Auto) 0.1 Thou/mm3 (0.0-0.2); Basophils % (Auto) 1 % (0-2.5); Eosinophils # (Auto) 0.0 Thou/mm3 (0.0-0.5); Eosinophils % (Auto) 0 % (0-10); Hematocrit 43.3 % (41.0-53.0); Hemoglobin 14.4 g/dL (13.5-16.0); Immature Granulocytes Auto 0.25 Thou/mm3 (0.00-0.00); Lymphocytes # (Auto) 2.5 Thou/mm3 (1.0-4.8); Lymphocytes % (Auto) 30 % (10-50); Mean Corpuscular HGB Conc 33.3 g/dl (31.0-37.0); Mean Corpuscular Hemoglobin 30.3 pg (25.0-35.0); Mean Corpuscular Volume 91 fL (80-100); Monocytes # (Auto) 0.5 Thou/mm3 (0.0-0.8); Monocytes % (Auto) 6 % (0-12); Neutrophils # (Auto) 5.0 Thou/mm3 (1.8-7.7); Neutrophils % (Auto) 61 % (37-80); Nucleated Red Blood Cell # 0.00 Thou/mm3 (0.00-0.00); Nucleated Red Blood Cell % 0 /100 WBC (0); Platelet Count 270 Thou/mm3 (140-440); RDW Standard Deviation 42.9 fL (35.1-43.9); Red Blood Count 4.76 Miln/mm3 (4.50-5.90); White Blood Count 8.3 Thou/mm3 (3.8-10.6)
== END | disposition home or self-care (01) ==
LOC: COPL 15:47
PROVIDERS: PCP Family Medicine; Referring Provider Psychiatry & Neurology Child & Adolescent Psychiatry; Visit Provider Psychiatry & Neurology Child & Adolescent Psychiatry
DX: F25.1 Schizoaffective disorder, depressive type (principal); Z79.899 Other long term (current) drug therapy
CPT/HCPCS: 36415; 85025

== ENCOUNTER → 2025-02-13 | Outpatient (CLI) | payer BC, SELFPAY ==
[2025-02-13 10:52] LABS: Misc Send Out* See Sep Rpt
[2025-02-13 12:54] LABS: Basophils # (Auto) 0.1 Thou/mm3 (0.0-0.2); Basophils % (Auto) 1 % (0-2.5); Eosinophils # (Auto) 0.1 Thou/mm3 (0.0-0.5); Eosinophils % (Auto) 1 % (0-10); Hematocrit 44.9 % (41.0-53.0); Hemoglobin 15.4 g/dL (13.5-16.0); Immature Granulocytes Auto 0.10 Thou/mm3 (0.00-0.00); Lymphocytes # (Auto) 2.3 Thou/mm3 (1.0-4.8); Lymphocytes % (Auto) 37 % (10-50); Mean Corpuscular HGB Conc 34.3 g/dl (31.0-37.0); Mean Corpuscular Hemoglobin 31.1 pg (25.0-35.0); Mean Corpuscular Volume 91 fL (80-100); Monocytes # (Auto) 0.5 Thou/mm3 (0.0-0.8); Monocytes % (Auto) 8 % (0-12); Neutrophils # (Auto) 3.2 Thou/mm3 (1.8-7.7); Neutrophils % (Auto) 52 % (37-80); Nucleated Red Blood Cell # 0.00 Thou/mm3 (0.00-0.00); Nucleated Red Blood Cell % 0 /100 WBC (0); Platelet Count 212 Thou/mm3 (140-440); RDW Standard Deviation 42.8 fL (35.1-43.9); Red Blood Count 4.95 Miln/mm3 (4.50-5.90); White Blood Count 6.2 Thou/mm3 (3.8-10.6)
[2025-02-13 13:03] LABS: Lithium 0.28 mEq/L (1.00-1.20)
[2025-02-13 13:06] LABS: Anion Gap 10 (7-16); BUN/Creatinine Ratio 9 Ratio (12-20); Blood Urea Nitrogen 6 mg/dL (9-23); Calcium 10.3 mg/dL (8.3-10.6); Carbon Dioxide 29.6 mMol/L (20.0-31.0); Chloride 106 mMol/L (98-107); Creatinine (Component) 0.7 mg/dL (0.6-1.3); Glucose 121 mg/dL (74-106); Osmolality,Calculated 289 (275-295); Potassium 4.1 mMol/L (3.4-5.1); Sodium 146 mMol/L (136-145); Thyroid Stimulating Hormone 1.48 uIU/mL (0.55-4.78); eGFR > 60 See Note
[2025-02-19 06:56] LABS: Valporic Acid (Depak)* 38.5 mg/L (50.0-100.0)
== END | disposition home or self-care (01) ==
LOC: COPL 10:31
PROVIDERS: PCP Family Medicine; Referring Provider Psychiatry & Neurology Child & Adolescent Psychiatry; Visit Provider Psychiatry & Neurology Child & Adolescent Psychiatry
DX: F25.1 Schizoaffective disorder, depressive type (principal)
CPT/HCPCS: 36415; 80048; 80164; 80178; 84443; 85025

== ENCOUNTER → 2025-02-27 | Outpatient (CLI) | payer BC, SELFPAY ==
[2025-02-27 16:30] LABS: Basophils # (Auto) 0.1 Thou/mm3 (0.0-0.2); Basophils % (Auto) 1 % (0-2.5); Eosinophils # (Auto) 0.1 Thou/mm3 (0.0-0.5); Eosinophils % (Auto) 2 % (0-10); Hematocrit 41.8 % (41.0-53.0); Hemoglobin 14.0 g/dL (13.5-16.0); Immature Granulocytes Auto 0.08 Thou/mm3 (0.00-0.00); Lymphocytes # (Auto) 2.5 Thou/mm3 (1.0-4.8); Lymphocytes % (Auto) 34 % (10-50); Mean Corpuscular HGB Conc 33.5 g/dl (31.0-37.0); Mean Corpuscular Hemoglobin 30.6 pg (25.0-35.0); Mean Corpuscular Volume 91 fL (80-100); Monocytes # (Auto) 0.4 Thou/mm3 (0.0-0.8); Monocytes % (Auto) 6 % (0-12); Neutrophils # (Auto) 4.0 Thou/mm3 (1.8-7.7); Neutrophils % (Auto) 56 % (37-80); Nucleated Red Blood Cell # 0.00 Thou/mm3 (0.00-0.00); Nucleated Red Blood Cell % 0 /100 WBC (0); Platelet Count 231 Thou/mm3 (140-440); RDW Standard Deviation 43.8 fL (35.1-43.9); Red Blood Count 4.58 Miln/mm3 (4.50-5.90); White Blood Count 7.2 Thou/mm3 (3.8-10.6)
== END | disposition home or self-care (01) ==
LOC: COPL 14:22
PROVIDERS: PCP Family Medicine; Referring Provider Psychiatry & Neurology Child & Adolescent Psychiatry; Visit Provider Psychiatry & Neurology Child & Adolescent Psychiatry
DX: F25.1 Schizoaffective disorder, depressive type (principal); Z79.899 Other long term (current) drug therapy
CPT/HCPCS: 36415; 85025

== ENCOUNTER → 2025-03-20 | Outpatient (CLI) | payer BC, SELFPAY ==
[2025-03-20 09:47] LABS: Basophils # (Auto) 0.1 Thou/mm3 (0.0-0.2); Basophils % (Auto) 1 % (0-2.5); Eosinophils # (Auto) 0.3 Thou/mm3 (0.0-0.5); Eosinophils % (Auto) 4 % (0-10); Hematocrit 42.1 % (41.0-53.0); Hemoglobin 13.9 g/dL (13.5-16.0); Immature Granulocytes Auto 0.22 Thou/mm3 (0.00-0.00); Lymphocytes # (Auto) 3.0 Thou/mm3 (1.0-4.8); Lymphocytes % (Auto) 38 % (10-50); Mean Corpuscular HGB Conc 33.0 g/dl (31.0-37.0); Mean Corpuscular Hemoglobin 30.0 pg (25.0-35.0); Mean Corpuscular Volume 91 fL (80-100); Monocytes # (Auto) 0.6 Thou/mm3 (0.0-0.8); Monocytes % (Auto) 7 % (0-12); Neutrophils # (Auto) 3.7 Thou/mm3 (1.8-7.7); Neutrophils % (Auto) 46 % (37-80); Nucleated Red Blood Cell # 0.00 Thou/mm3 (0.00-0.00); Nucleated Red Blood Cell % 0 /100 WBC (0); Platelet Count 238 Thou/mm3 (140-440); RDW Standard Deviation 43.6 fL (35.1-43.9); Red Blood Count 4.63 Miln/mm3 (4.50-5.90); White Blood Count 7.9 Thou/mm3 (3.8-10.6)
== END | disposition home or self-care (01) ==
LOC: COPL 08:34
PROVIDERS: PCP Family Medicine; Referring Provider Psychiatry & Neurology Child & Adolescent Psychiatry; Visit Provider Psychiatry & Neurology Child & Adolescent Psychiatry
DX: F25.1 Schizoaffective disorder, depressive type (principal); Z79.899 Other long term (current) drug therapy
CPT/HCPCS: 36415; 85025

== ENCOUNTER → 2025-03-26 | Outpatient (CLI) | payer BC, SELFPAY ==
[2025-03-26 13:03] LABS: Misc Send Out* See Sep Rpt
[2025-03-26 13:35] LABS: Lithium 0.61 mEq/L (1.00-1.20)
[2025-03-26 13:40] LABS: Alanine Aminotransferase 77 U/L (10-49); Albumin, Serum 4.6 gm/dL (3.5-5.0); Albumin/Globulin Ratio 1.6 (1.2-2.2); Alkaline Phosphatase 83 U/L (46-116); Anion Gap 11 (7-16); Aspartate Amino Transferase 76 U/L (0-34); BUN/Creatinine Ratio 6 Ratio (12-20); Bilirubin,Total 0.3 mg/dL (0.3-1.2); Blood Urea Nitrogen < 5 mg/dL (9-23); Calcium 10.6 mg/dL (8.3-10.6); Calcium (Corrected) 10.6 mg/dL (8.5-10.1); Carbon Dioxide 22.7 mMol/L (20.0-31.0); Chloride 107 mMol/L (98-107); Creatinine (Component) 0.8 mg/dL (0.6-1.3); Free T4 (Free Thyroxine) 1.18 ng/dL (0.89-1.76); Globulin 2.8 gm/dL (2.3-3.5); Glucose 144 mg/dL (74-106); Osmolality,Calculated 281 (275-295); Potassium 4.4 mMol/L (3.4-5.1); Sodium 141 mMol/L (136-145); Thyroid Stimulating Hormone 2.55 uIU/mL (0.55-4.78); Total Protein 7.4 gm/dL (5.7-8.2); eGFR > 60 See Note
[2025-03-26 14:53] LABS: Amphetamine/Methamp Scrn,U Negative (Negative); Barbiturate Screen,Urine Negative (Negative); Benzodiazepines Screen,Urine Negative (Negative); Benzoylecgonine Screen, Ur Negative (Negative); Fentanyl Screen,Urine Negative (Negative); Opiate Screen,Urine Negative (Negative); THC Screen,Urine Negative (Negative)
[2025-03-26 16:20] LABS: Basophils # (Auto) 0.1 Thou/mm3 (0.0-0.2); Basophils % (Auto) 1 % (0-2.5); Eosinophils # (Auto) 0.3 Thou/mm3 (0.0-0.5); Eosinophils % (Auto) 4 % (0-10); Hematocrit 41.8 % (41.0-53.0); Hemoglobin 14.2 g/dL (13.5-16.0); Immature Granulocytes Auto 0.09 Thou/mm3 (0.00-0.00); Lymphocytes # (Auto) 2.4 Thou/mm3 (1.0-4.8); Lymphocytes % (Auto) 33 % (10-50); Mean Corpuscular HGB Conc 34.0 g/dl (31.0-37.0); Mean Corpuscular Hemoglobin 31.3 pg (25.0-35.0); Mean Corpuscular Volume 92 fL (80-100); Monocytes # (Auto) 0.6 Thou/mm3 (0.0-0.8); Monocytes % (Auto) 9 % (0-12); Neutrophils # (Auto) 3.8 Thou/mm3 (1.8-7.7); Neutrophils % (Auto) 52 % (37-80); Nucleated Red Blood Cell # 0.00 Thou/mm3 (0.00-0.00); Nucleated Red Blood Cell % 0 /100 WBC (0); Platelet Count 217 Thou/mm3 (140-440); RDW Standard Deviation 44.1 fL (35.1-43.9); Red Blood Count 4.54 Miln/mm3 (4.50-5.90); White Blood Count 7.4 Thou/mm3 (3.8-10.6)
[2025-04-02 07:16] LABS: Valporic Acid (Depak)* 70.6 mg/L (50.0-100.0)
== END | disposition home or self-care (01) ==
LOC: COPL 12:30
PROVIDERS: PCP Family Medicine; Referring Provider Psychiatry & Neurology Child & Adolescent Psychiatry; Visit Provider Psychiatry & Neurology Child & Adolescent Psychiatry
DX: F25.1 Schizoaffective disorder, depressive type (principal); F43.10 Post-traumatic stress disorder, unspecified; F17.290 Nicotine dependence, other tobacco product, uncomplicated; K11.7 Disturbances of salivary secretion; R63.5 Abnormal weight gain
CPT/HCPCS: 36415; 80053; 80164; 80178; 80307; 84439; 84443; 85025

== ENCOUNTER → 2025-04-12 | Outpatient (CLI) | payer BC, SELFPAY ==
[2025-04-12 13:30] LABS: Basophils # (Auto) 0.1 Thou/mm3 (0.0-0.2); Basophils % (Auto) 1 % (0-2.5); Eosinophils # (Auto) 0.3 Thou/mm3 (0.0-0.5); Eosinophils % (Auto) 3 % (0-10); Hematocrit 41.9 % (41.0-53.0); Hemoglobin 14.4 g/dL (13.5-16.0); Immature Granulocytes Auto 0.14 Thou/mm3 (0.00-0.00); Lymphocytes # (Auto) 2.2 Thou/mm3 (1.0-4.8); Lymphocytes % (Auto) 31 % (10-50); Mean Corpuscular HGB Conc 34.4 g/dl (31.0-37.0); Mean Corpuscular Hemoglobin 31.0 pg (25.0-35.0); Mean Corpuscular Volume 90 fL (80-100); Monocytes # (Auto) 0.5 Thou/mm3 (0.0-0.8); Monocytes % (Auto) 6 % (0-12); Neutrophils # (Auto) 4.1 Thou/mm3 (1.8-7.7); Neutrophils % (Auto) 57 % (37-80); Nucleated Red Blood Cell # 0.00 Thou/mm3 (0.00-0.00); Nucleated Red Blood Cell % 0 /100 WBC (0); Platelet Count 225 Thou/mm3 (140-440); RDW Standard Deviation 43.2 fL (35.1-43.9); Red Blood Count 4.65 Miln/mm3 (4.50-5.90); White Blood Count 7.3 Thou/mm3 (3.8-10.6)
[2025-04-12 13:45] LABS: Lithium 0.36 mEq/L (1.00-1.20)
== END | disposition home or self-care (01) ==
LOC: COPL 12:58
PROVIDERS: PCP Family Medicine; Referring Provider Psychiatry & Neurology Child & Adolescent Psychiatry; Visit Provider Psychiatry & Neurology Child & Adolescent Psychiatry
DX: F25.1 Schizoaffective disorder, depressive type (principal)
CPT/HCPCS: 36415; 80178; 85025

== ENCOUNTER 2025-05-20 22:18 | Inpatient (IN) | payer BC, MEDICAID, SELFPAY ==
[2025-05-20] VITALS (11 sets, daily range): BP systolic 123–156; BP diastolic 75–115; PULSE 112–117; RESP 17–29; TEMP 39.4; O2SAT 61–99; BMI 41.1
--- NOTE | 2025-05-20 22:29 | PC.NURSE ---
ON TRIAGE, PT APPEARS VERY ILL. SEPSIS ALLERT CALLED.
--- NOTE | 2025-05-20 22:45 | PD.EDNV ---
Nausea/Vomit./Diarrhea-RME/HPI General Chief complaint: Nausea/Vomiting/Diarrhea Stated complaint: NVD AND COUGH Time Seen by Provider: 05/20/25 22:21 Arrival date/time: 05/20/25 22:18 RME / HPI RME / HPI Narrative: Dr. Garcia?s Main ED Evaluation: 20yo male with a history of DM, schizoaffective disorder presents to the ED for complaints of N/V/D and cough x 4 days. Patient's partner at bedside states the patient has been taking Imodium without improvement. Patient has been unable to keep any fluids down. Blood sugar here in the ED is 117. Full ROS is unobtainable due to the patient being short of breath. Related Data Home Medications ?Medication ?Instructions ?Recorded ?Confirmed lithium carbonate 150 mg capsule 150 mg PO QDAY 10/02/21 10/02/21 olanzapine 20 mg tablet 20 mg PO QDAY 10/02/21 10/02/21 prazosin 1 mg capsule 1 mg PO QDAY 10/02/21 10/02/21 trazodone 50 mg tablet 50 mg PO QDAY 10/02/21 10/02/21 Allergies Allergy/AdvReac Type Severity Reaction Status Date / Time codeine AdvReac Severe ALTERED Verified 11/16/20 19:33 Review of Systems Review of Systems Systems Reviewed: All systems reviewed, normal except as documented Past Medical History Past Medical History NEUROLOGIC: Negative Neurological Disorders CARDIAC: Negative Cardiac Disorders or Congestive Heart Failure RESPIRATORY: Negative Chronic Obstructive Pulmonary Disease (COPD) GASTROINTESTINAL: Negative Gastrointestinal Disorders GENITOURINARY: Negative Genitourinary Disorders or Renal Disease MUSCULOSKELETAL: Negative Musculoskeletal Disorders ENDOCRINE: Negative Endocrine Disorders, Diabetes Mellitus Type 1 or Diabetes Mellitus Type 2 HEMATOLOGIC: Negative Blood Disorders PSYCHO/SOCIAL: Positive Psychiatric Problems, Depression and Anxiety OTHER HISTORY: Negative Autism or Shingles Social History SMOKING STATUS: Current every day smoker ED Exam Narrative Physical exam: Generally patient is lethargic and morbidly obese, lungs show crackles bilaterally in all lung perez with fair air exchange, heart tachycardic rate with a regular rhythm, abdomen is obese and apparently nontender, neurologic exam shows the patient be somnolent but arouses to loud verbal stimuli and obeys commands. No focal motor deficits. Skin is warm pale and dry. Course Course Course Narrative: 2229: Sepsis alert initiated. Orders made at this time are congruent with ED Adult Sepsis Order List. Re-evaluation is to be completed. CXR is ordered for determining the etiology of cough. Quality Measures Possible source: pulmonary Blood cultures ordered: yes Antibiotic ordered: Yes Pertinent labs: 05/20/25 22:58 Lactic Acid 1.6 mMol/L (0.4-2.0) sepsis Orders Category Date Time Status Bedside COVID-19 Antigen Test NOW Care 05/20/25 22:[address] Screening NOW Care 05/20/25 23:[address] chest w con Stat Exams 05/20/25 23:37 Ordered XR chest 1V portable Stat Exams 05/20/25 22:51 Taken Alcohol, Blood Medical Stat Lab 05/20/25 22:58 Completed Blood Culture (Lab) Stat Lab 05/20/25 23:14 Received CBC Stat Lab 05/20/25 22:58 Completed CMP [Comprehensive Metabolic Panel] Stat Lab 05/20/25 22:58 Completed Drug Screen,Urine Stat Lab 05/20/25 23:25 Received FLU A&B [Influenza A & B Rapid Panel] Stat Lab 05/20/25 23:00 Completed HIV (1&2) Antibody Rapid Stat Lab 05/20/25 22:58 Completed Lactic Acid [Lactate (Lactic Acid)] Stat Lab 05/20/25 22:58 Completed TSH [Thyroid Stimulating Hormone] Stat Lab 05/20/25 22:58 Completed Troponin I Stat Lab 05/20/25 22:58 Completed UA [Urinalysis] Stat Lab 05/20/25 23:25 Completed VBG [Venous Blood Gas] Stat Lab 05/20/25 22:58 Completed Acetaminophen Ivpb [Ofirmev Inj] Med 05/20/25 23:09 Active 1,000 mg in 100 ml IV Q6HR Azithromycin Inj [Zithromax Inj] 500 mg Med 05/20/25 22:50 Discontinued Sodium Chloride 0.9% 250 ml [Ns] 250 ml IV X1 cefTRIAXone/D5w 1gm IV premix [Rocephin/D5w 1gm IV Med 05/20/25 22:50 Discontinued premix] 1 gm in 50 ml IV X1 Vital Signs Vital signs: Vital Signs Temperature 103.0 F H 05/20/25 22:31 Pulse Rate 117 H 05/20/25 22:31 Respiratory Rate 17 05/20/25 22:31 Blood Pressure 123/75 05/20/25 22:31 Pulse Oximetry (%) 61 L 05/20/25 22:31 Oxygen Delivery Method Room Air 05/20/25 22:31 Nausea/Vomiting/Diarrhea MDM Narrative MDM Narrative:: Scribe Attestation: 05/20/25 - Julisa Arreaga am scribing for and in the presence of Dr. Garcia. Patient has SIRS criteria with temperature and heart rate. Sepsis alert was called. After blood cultures are obtained and the patient received Rocephin 1 g IV and azithromycin 500 mg IV. Lactic acid level was not elevated. Patient is not hypotensive. Patient does not require fluid resuscitation at this time. EKG shows sinus tachycardia at a rate of 114 with nonspecific T wave abnormality without ischemic change. Venous blood gas showed a pH of 7.36 and a pCO2 of 50. Chest x-ray shows multilobar pneumonia left-sided greater than right. I discussed this case with the hospitalist and the patient will require admission to the hospital for further treatment and evaluation for his multilobar pneumonia with extreme hypoxia which was 61% on room air. On simple mask the patient's O2 saturation is between 94 to 97%. With oxygenation his mental status has improved. COVID and flu swabs were negative. Patient data External records reviewed:: [facility] previous records (Per chart review, patient was seen here on 10/02/21 for schizoaffective disorder.) Clinical information provided by:: other (specify) (partnet) Social determinants that could affect healthcare access:: none Patient has the following chronic illnesses:: DM How is presenting disease/condition affected by chronic disease/condition?: uneffected by Evaluation data The following diagnostics were reviewed and interpreted by me:: lab results, radiology exam(s) and EKG tracing(s) Lab and/or radiology exams considered but not ordered:: none Interpretation Summary: [facility] Report Signed Patient: SOURAV CORONEL [facility]. Record#: [id number] Birthdate: 2005 Age/Sex: 20 / M Location: [facility] Attending Dr: Ordering Physician: Contreras Garcia DO Date of Service: 05/20/25 Procedure(s): XR chest 1V portable Accession Number(s): [id number] cc: Sonny Santo MD; Contreras Garcia DO; Desiree Byrd MD~ EXAMINATION: AP chest single view TECHNIQUE: AP portable semiupright chest single view INDICATIONS: Chest pain shortness of breath today FINDINGS: Poor inspiratory effort Significant bilateral pneumonia Cardiac contour is partially obscured Osseous structures are intact IMPRESSION: Significant bilateral pneumonia Dictated By: Sonny Santo MD Signed By: <Electronically signed by Sonny Santo MD in OV> 05/21/25 0000 Medications / Prescriptions Medications / Prescriptions considered but not ordered:: none Medication administrations:: Medication Administration History Acetaminophen (Ofirmev Inj) 1,000 mg in 100 mls @ 250 mls/hr IV Q6HR ANANDA Stop: 05/21/25 18:23 Last Infusion: 05/20/25 23:49 Dose: Infused Documented By: Admin: 05/20/25 23:25 Dose: 250 mls/hr Documented By: DT Discontinued Medications Ceftriaxone Sodium/Dextrose (Rocephin/D5w 1gm Iv Premix) 1 gm in 50 mls @ 100 mls/hr IV X1 ONE Stop: 05/20/25 23:19 Last Admin: 05/20/25 23:50 Dose: 100 mls/hr Documented By: DT Azithromycin 500 mg/ Sodium (Chloride) 250 mls @ 250 mls/hr IV X1 ONE Stop: 05/20/25 23:49 see above Consultations Consultation(s) initiated? (list below): Yes Diagnosis Nausea Differential Diagnosis: other (See MDM) Most likely diagnosis given after review of the tests above:: see clinical impression below Admission Indicated Admission indicated?: indicated Admission Request Was there a request for admission?: Yes Admission Attestation Admission request attestation: Discussed case with [] from Hospitalist service regarding admission. Discussed patients ED course, exam findings, labs, and radiology results. The Hospitalist [agrees,declines] to accept the patient for admission. Disposition Plan Disposition Plan: Admit Critical Care Time Critical Care Time Critical Care Time: Yes Total Critical Care Time (min.): 35 Attestation: Excluding other billable procedures Discharge Plan Plan Patient Disposition: Admit Acute Care w/in Hospital Prescriptions/Referrals Prescriptions/Med Rec: No Action trazodone 50 mg tablet 50 mg PO QDAY prazosin 1 mg capsule 1 mg PO QDAY lithium carbonate 150 mg capsule 150 mg PO QDAY olanzapine 20 mg tablet 20 mg PO QDAY Referrals: Desiree Byrd MD [Primary Care Provider, [facility]] - In 1 week Problem List Clinical Impression: Pneumonia, Hypoxia, Sepsis Patient/Caregiver Discharge Instructions Print Language: New Zealander Stand Alone Forms: Brandi Award Info., Patient Portal Info Letter
--- NOTE | 2025-05-20 22:51 | XR_ITS ---
EXAMINATION: AP chest single view TECHNIQUE: AP portable semiupright chest single view INDICATIONS: Chest pain shortness of breath today FINDINGS: Poor inspiratory effort Significant bilateral pneumonia Cardiac contour is partially obscured Osseous structures are intact IMPRESSION: Significant bilateral pneumonia
[2025-05-20 23:10] LABS: Base Excess, Venous 2 (-3-3); Lactate (Lactic Acid) 1.6 mMol/L (0.4-2.0); O2 Saturation, Venous 86 % (96-97); PCO2, Venous 50 mmHg (36-56); PO2, Venous 50 mmHg (15-58); pH, Venous 7.36 (7.33-7.66)
[2025-05-20 23:11] LABS: Basophils # (Auto) 0.1 Thou/mm3 (0.0-0.2); Basophils % (Auto) 1 % (0-2.5); Eosinophils # (Auto) 0.2 Thou/mm3 (0.0-0.5); Eosinophils % (Auto) 2 % (0-10); Hematocrit 39.0 % (41.0-53.0); Hemoglobin 13.0 g/dL (13.5-16.0); Immature Granulocytes Auto 0.34 Thou/mm3 (0.00-0.00); Lymphocytes # (Auto) 2.1 Thou/mm3 (1.0-4.8); Lymphocytes % (Auto) 20 % (10-50); Mean Corpuscular HGB Conc 33.3 g/dl (31.0-37.0); Mean Corpuscular Hemoglobin 30.2 pg (25.0-35.0); Mean Corpuscular Volume 91 fL (80-100); Monocytes # (Auto) 1.7 Thou/mm3 (0.0-0.8); Monocytes % (Auto) 16 % (0-12); Neutrophils # (Auto) 6.2 Thou/mm3 (1.8-7.7); Neutrophils % (Auto) 58 % (37-80); Nucleated Red Blood Cell # 0.00 Thou/mm3 (0.00-0.00); Nucleated Red Blood Cell % 0 /100 WBC (0); Platelet Count 216 Thou/mm3 (140-440); RDW Standard Deviation 40.9 fL (35.1-43.9); Red Blood Count 4.30 Miln/mm3 (4.50-5.90); White Blood Count 10.6 Thou/mm3 (3.8-10.6)
[2025-05-20] MEDS: ACETAMINOPHEN IVPB 1,000 MG/100 ML VIAL 250 MG IV (23:25)
[2025-05-20 23:29] LABS: Collection Type, Urine Catheter; Squamous Epithelial Cell,Urine 0 /hpf (0-5)
[2025-05-20 23:34] LABS: Alanine Aminotransferase 59 U/L (10-49); Albumin, Serum 5.0 gm/dL (3.5-5.0); Albumin/Globulin Ratio 1.7 (1.2-2.2); Alcohol, Blood Medical < 3.0 mg/dL (0-10.0); Alkaline Phosphatase 57 U/L (46-116); Anion Gap 9 (7-16); Aspartate Amino Transferase 61 U/L (0-34); BUN/Creatinine Ratio 6 Ratio (12-20); Bilirubin,Total 0.3 mg/dL (0.3-1.2); Blood Urea Nitrogen 7 mg/dL (9-23); Calcium 9.4 mg/dL (8.3-10.6); Calcium (Corrected) 9.4 mg/dL (8.5-10.1); Carbon Dioxide 26.5 mMol/L (20.0-31.0); Chloride 101 mMol/L (98-107); Creatinine (Component) 1.2 mg/dL (0.6-1.3); Estimated Creatinine Clearance 146.7 mL/min (>60); Globulin 2.9 gm/dL (2.3-3.5); Glucose 113 mg/dL (74-106); Osmolality,Calculated 270 (275-295); Potassium 3.8 mMol/L (3.4-5.1); Sodium 136 mMol/L (136-145); Thyroid Stimulating Hormone 4.15 uIU/mL (0.55-4.78); Total Protein 7.9 gm/dL (5.7-8.2); eGFR > 60 See Note
[2025-05-20 23:36] LABS: Influenza A Ag Negative; Influenza B Ag Negative
--- NOTE | 2025-05-20 23:37 | XR_ITS ---
Examination: CT chest with intravenous contrast 2-D sagittal and coronal reconstructions Exam date and time: May 21, 2025, 0117 hours INDICATIONS: Nausea vomiting shortness of breath chest pain beginning 4 days ago CTDI:vol (mGy) 33.4 DLP: (mGycm) 1463 Technique: Multiple axial sections of the thorax have been obtained. Sections have been obtained, 3 mm slice thickness. Mediastinal and lung density settings have been obtained. Intravenous contrast administered, 50 cc Isovue-370. 2-D sagittal, coronal images obtained. Low dose protocols were performed. One or more of the following dose reduction techniques were used; automated exposure control, adjustment of the mA and/or KV according to patient size, use of iterative reconstruction technique. Findings: No thoracic aortic aneurysmal dilatation No pulmonary artery emboli No paratracheal tracheobronchial or bronchopulmonary adenopathy. 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
[2025-05-20 23:38] LABS: Troponin I 0.092 ng/mL (0.0-0.045)
[2025-05-20 23:48] LABS: Bilirubin,Urine 1+ (Negative); Blood,Urine Trace (Negative); Clarity,Urine Turbid (Clear/Hazy); Color,Urine Drk-Yellow (Lt Yel-Yel); Glucose, Urine Negative (Negative); Hyaline Casts,Urine 7 /hpf (0-1); Ketones,Urine Trace (Negative); Leukocyte Esterase,Urine Negative (Negative); Nitrite,Urine Negative (Negative); PH,Urine 6.0 (5.0-7.0); Protein,Urine 3+ (Neg - Trace); RBC,Urine 4 /hpf (0-3); Specific Gravity,Urine 1.034 (1.001-1.035); Urobilinogen,Urine 2.0 mg/dL (0.0-1.0); WBC,Urine 8 /hpf (0-5)
[2025-05-20] MEDS: cefTRIAXone/D5w 1gm IV premix 1 GM/50 ML BAG IV (23:50)
[2025-05-20 23:58] LABS: HIV (1&2) Antibody Rapid Non-Reactive
[2025-05-21] VITALS (82 sets, daily range): BP systolic 81–178; BP diastolic 51–125; PULSE 75–138; RESP 0–47; TEMP 36.2–37.7; O2SAT 59–100; BMI 44.9
[2025-05-21 00:07] LABS: Amphetamine/Methamp Scrn,U Negative (Negative); Barbiturate Screen,Urine Negative (Negative); Benzodiazepines Screen,Urine Negative (Negative); Benzoylecgonine Screen, Ur Negative (Negative); Fentanyl Screen,Urine Negative (Negative); Opiate Screen,Urine Negative (Negative); THC Screen,Urine Negative (Negative)
[2025-05-21] MEDS: AZITHROMYCIN INJ 500 MG in SODIUM CHLORIDE 0.9% 250 ML 250 ML 250 MG IV ×2 (00:53→21:09)
--- NOTE | 2025-05-21 01:36 | PD.RESHP ---
Documentation for date of: 05/21/25 HPI History of Present Illness History of present illness: 20yo male with a history of DM, schizoaffective disorder, NIDM, presents to the ED for complaints of N/V/D and cough x 4 days. Admitted for sepsis rule out most likely secondary to pneumonia or gastric enteritis. ED Course Summary Vitals: BP 123/75 HR 117 RR 17 T 103F O2 61% RA Labs: Hgb 13 BUN 7 Cr 1.2 (baseline 0.8), UA unremarkable, AST 61 ALT 59, troponin 0.092 VBG pH 7.36 pCO2 50 pO2 50 O2 sat 86% Imaging: CXR significant bilateral pneumonia. CTAP bilateral lower lobes PNA, hepatomegaly Treatment: Ceftriaxone, azithromycin, NS 1 L Upon initial examination patient was GCS 14 and AOx4 assisted by bipap and sternal rubs, however, able to open eyes spontaneously. Father and boyfriend confirm that patient had 3-4 days of vomiting and diarrhea after eating [employer] with his boyfriend - they each had separate meals. He has had innumerable vomiting and diarrhea everyday the past 4 days and even had an episode of green diarrhea upon exam in ED. His father and boyfriend state that patient just looked very sick and confused last night prompting the boyfriend to bring patient in to ED. However around this time patient had a huge episode of vomiting which resulted in him sounding very gurgly and worsened how he looked. The patient reportedly does not go outside very much other than when he is with his partner, is in general very difficult to rouse from sleep, and generally requires a sternal rub and will ultimately fall back asleep if not readily stood up upon waking. His psychiatrist is Dr. Gomes in [place] who he sees biweekly on zoom and monthly in person. Code: Full Insulin: None Medical Hx: please see 1-liner above Medications: lithium, olanzapine, prazosin, trazodone, clozarel Allergies: Codeine - pyschotic Surgical history: denies Fhx: Aunt histrionic/hypomanic, mom has MDD Living: With parents Work: Disability due to psych Alcohol: None Cigarettes/tobacco: Vapes Recreational drugs: Remote history of psychedelics All 12 systems reviewed and were negative except otherwise stated in HPI. Exam Vital Signs Temp Pulse Resp BP Pulse Ox O2 Del Method O2 Flow Rate 99.3 F 108 H 20 116/89 H 95 Oxy Mask 10 05/21/25 01:31 05/21/25 01:31 05/21/25 01:31 05/21/25 01:31 05/21/25 01:31 05/21/25 01:31 05/21/25 01:30 Narrative Exam GENERAL APPEARANCE: AOx3 GCS 14, protecting airway. Somnolent, difficult to rouse, increased work of breathing on Bipap HEENT: Normocephalic atraumatic, no facial trauma, neck is supple. Lids/conjunctiva normal. Mucous membranes moist, nares normal, lips/teeth normal uvula midline without oral pharyngeal erythema, exudate or swelling TMs normal bilaterally. No lymphangitis/lymphedema. CARDIAC: Regular rate and rhythm, S1+S2 heard. No murmurs, rubs, or gallops noted RESPIRATORY: On bipap increased work of breathing. Bilateral crackles ABDOMINAL: NBS. Soft, ND/NT. No evidence of fluid wave. No pulsatile masses on exam, rebound tenderness, Arauz sign or pain over Mcburney's point. MUSCLES/EXTREMITIES: No abnormal range of motion, no swelling. DERM: Warm, pink and dry. No rashes, dermatoses, petechiae or lesions. NEUROLOGICAL: Speech is clear and appropriate. Normal level of consciousness. 5/5 strength in all extremities. PSYCH: Normal mood and affect. Judgement/competence is appropriate Results: Labs 05/21/25 05:14 05/21/25 05:14 Labs: Short CBC 05/20/25 Range/Units 22:58 WBC 10.6 (3.8-10.6) Thou/mm3 Hgb 13.0 L (13.5-16.0) g/dL Hct 39.0 L (41.0-53.0) % Plt Count 216 (140-440) Thou/mm3 BMP 05/20/25 22:58 Sodium 136 Potassium 3.8 Chloride 101 Carbon Dioxide 26.5 BUN 7 L Creatinine 1.2 Glucose 113 H Calcium 9.4 Cardiac Enzymes 05/20/25 Range/Units 22:58 Troponin I 0.092 H* (0.0-0.045) ng/mL Liver Function 05/20/25 Range/Units 22:58 Total Bilirubin 0.3 (0.3-1.2) mg/dL AST 61 H (0-34) U/L ALT 59 H (10-49) U/L Alkaline Phosphatase 57 (46-116) U/L Albumin 5.0 (3.5-5.0) gm/dL Urine 05/20/25 Range/Units 23:25 Urine Color Drk-Yellow A (Lt Yel-Yel) Urine Clarity Turbid A (Clear/Hazy) Urine pH 6.0 (5.0-7.0) Ur Specific [place] 1.034 (1.001-1.035) Urine Protein 3+ A (Neg - Trace) Urine Glucose (UA) Negative (Negative) ABG Interpretation ABG results: 05/20/25 22:58 VBG pH 7.36 VBG pCO2 50 VBG pO2 50 VBG Base Excess 2 Quality Measures Quality Measures sepsis Current suspected stage: sepsis Possible source: pulmonary Blood cultures ordered: yes Antibiotic ordered: Yes Medications Home Medications and Allergies Home Medications ?Medication ?Instructions ?Recorded ?Confirmed ?Type lithium carbonate 150 mg capsule 600 mg PO HS 10/02/21 05/21/25 History prazosin 1 mg capsule 1 mg PO QDAY 10/02/21 05/21/25 History bupropion HCl 150 mg 24 hr tablet, 300 mg PO .AM 05/21/25 05/21/25 History extended release clozapine 100 mg tablet 450 mg PO DAILY 05/21/25 05/21/25 History divalproex 250 mg tablet,delayed 250 mg PO HS 05/21/25 05/21/25 History release divalproex 500 mg tablet,extended 500 mg PO HS 05/21/25 05/21/25 History release 24 hr metformin 500 mg tablet 500 mg PO BID 05/21/25 05/21/25 History venlafaxine 37.5 mg 37.5 mg PO DAILY 05/21/25 05/21/25 History capsule,extended release 24 hr venlafaxine 75 mg capsule,extended 150 mg PO DAILY 05/21/25 05/21/25 History release 24 hr Allergies Allergy/AdvReac Type Severity Reaction Status Date / Time codeine AdvReac Severe ALTERED Verified 11/16/20 19:33 Visit Medications Acetaminophen (Acetaminophen 325 Mg Tablet) 650 mg PO Q6H PRN PRN Reason: Fever >100.4 or pain 1-3 Stop: 06/20/25 00:36 Hydrocodone Bitart/Acetaminophen (Hydrocodone/Apap 5/325 Tablet) 1 tab PO Q4HR PRN PRN Reason: PAIN SCALE 4-6 (Moderate Stop: 05/26/25 00:41 Albuterol/Ipratropium (Albuterol/Ipratropium (Duoneb) Rt Jannie 3 Ml Nebu) 3 ml INH Q4HRRT ANANDA Stop: 06/20/25 02:59 Docusate Sodium (Docusate Sod 100 Mg Capsule) 100 mg PO QDAY ANANDA; Protocol Stop: 06/20/25 08:59 Famotidine (Famotidine Inj 10 Mg/Ml Vial 2 Ml) 20 mg IVP Q12HR ANANDA Stop: 06/20/25 08:59 Heparin Sodium (Porcine) (Heparin Sod Inj 5000 Unit/Ml Vial) 5,000 unit SC Q12HR ANANDA Stop: 06/04/25 08:59 Acetaminophen (Ofirmev Inj) 1,000 mg in 100 mls @ 250 mls/hr IV Q6HR ANANDA Stop: 05/21/25 18:23 Last Infusion: 05/20/25 23:49 Dose: Infused Lactated Ringer's (Lactated Ringers) 1,000 mls @ 125 mls/hr IV .Q8H ANANDA Stop: 06/20/25 01:06 Lactated Ringer's (Lactated Ringers) 1,000 mls @ 43.54 mls/hr IV .[id number] ONE Stop: 05/22/25 00:08 Ceftriaxone Sodium/Dextrose (Rocephin/D5w 1gm Iv Premix) 1 gm in 50 mls @ 100 mls/hr IV QDAY ANANDA Stop: 05/28/25 01:16 Azithromycin 500 mg/ Sodium (Chloride) 250 mls @ 250 mls/hr IV QDAY ANANDA Stop: 05/28/25 01:17 Mccurtain Carbonate (Mccurtain Carb 150 Mg Capsule) 150 mg PO QDAY ANANDA Stop: 06/20/25 08:59 Olanzapine (Olanzapine 5 Mg Tablet) 20 mg PO QDAY ANANDA Stop: 06/20/25 08:59 Ondansetron HCl (Ondansetron Inj 2 Mg/Ml Inj 2 Ml) 4 mg IVP Q6H PRN; Protocol PRN Reason: NAUSEA OR VOMITING Stop: 06/20/25 00:36 Prazosin HCl (Prazosin Hcl 1 Mg Capsule) 1 mg PO HS ANANDA Stop: 06/20/25 20:59 Trazodone HCl (Trazodone Hcl 50 Mg Tablet) 50 mg PO HS ANANDA Stop: 06/20/25 20:59 Valproic Acid (Valproic Acid Syrup 250 Mg/5 Ml Udc) 500 mg PO BID ANANDA Stop: 06/20/25 08:59 Discontinued Medications Guaifenesin (Guaifenesin Syrup 200 Mg/10 Ml Udc) 200 mg PO X1 ONE; Protocol Stop: 05/21/25 01:09 Ceftriaxone Sodium/Dextrose (Rocephin/D5w 1gm Iv Premix) 1 gm in 50 mls @ 100 mls/hr IV X1 ONE Stop: 05/20/25 23:19 Last Admin: 05/20/25 23:50 Dose: 100 mls/hr Azithromycin 500 mg/ Sodium (Chloride) 250 mls @ 250 mls/hr IV X1 ONE Stop: 05/20/25 23:49 Last Admin: 05/21/25 00:53 Dose: 250 mls/hr Lactated Ringer's (Lactated Ringers) 1,000 mls @ 75 mls/hr IV .[id number] ANANDA Stop: 06/20/25 00:44 Lactated Ringer's (Lactated Ringers) 1,000 mls @ 3,000 mls/hr IV .Q20M ONE Stop: 05/21/25 01:27 Lactated Ringer's (Lactated Ringers) 1,000 mls @ 999 mls/hr IV .Q1H1M ONE Stop: 05/21/25 02:10 Nicotine (Nicotine Patch 14 Mg/24 Hr Patch.Td24) 14 mg TOP X1 ONE Stop: 05/21/25 01:15 Sodium Chloride (Sodium Chloride Rt 10% 15 Ml Nebu) 5 ml INH X1 ONE Stop: 05/21/25 00:19 Assessment & Plan Plan 20yo male with a history of DM, schizoaffective disorder, NIDM, presents to the ED for complaints of N/V/D and cough x 4 days. Admitted for sepsis rule out most likely secondary to pneumonia or gastric enteritis. Upon admission patient continued to gargle in upper airway, which improved with suctioning. However, ABG showed worsening acid levels pH 7.2 pCO2 77 pO2 67 HCO3 30 O2sat 90, requiring intubation and upgrade to ICU. #Sepsis #Acute hypercapnic hypoxic respiratory failure most likely 2/2 #CAP vs atypicals vs aspiration pneumonia Patient came in and found to have 2 or more SIRS criteria and was evaluated for sepsis. However, based upon further work-up, sepsis was ruled out. HR 117 T 103F O2 61%. Has improved with BIPAP Temp has downtrended to 99.3F HR 108. ABG showed worsening acid levels pH 7.2 pCO2 77 pO2 67 HCO3 30 O2sat 90, requiring intubation and upgrade to ICU. Plan: -Sputum cx:____ -FUP blood cx: -Azithromycin 500mg IV QD for first 2 days -Ceftriaxone 1g IV QD -Guaifenesin x1 -Duoneb 3ml INH Q4HRRT -Bipap -ISS -IV LR x2 bolus -IVF -F/U vbg -F/U Bcx, Sputum cx #Intractable NVD ddx gastroenteritis Patient has intractable NVD for 3-4 days following a meal at [employer]. Had episode of loose stools in ED upon interview. Plan: -Stool culture:___ -Calprotectin -C diff -Helicobacter -Norovirus -Ova parasites smear -Procalcitonin -Contact precautions #ELIECER Stage 1 Cr>0.3 mg/dL in 2d or increase Cr>50% or UOP <0.5mL/kg/h for >6hr Cr 1.2 (baseline 0.8) Most likely due to volume depletion in the setting of intractable NVD Plan: -IVF #NSTEMI I vs II Troponin 0.092, no chest pain on exam. No EKG done in ED. Plan: -Trend trops Q6H #Schizoaffective disorder Long history. Psychiatrist is Dr. Gomes in [place] who he sees biweekly on zoom and monthly in person Plan: -Please reach out to Dr. Gomes ([place] psychiatrist) for recs on if we should continue dosing clozapine - night team concerned it is masking his WBC elevation -Restarted prazosin 1mg PO HS (nightmares) -Trazodone HCL 50mg PO HS (insomnia) -Mccurtain 150 mg PO QD -Zyprexa 20mg PO QD -Valproic acid 500mg PO BID #Hx of smoking Patient currently vapes, per dad, he is probably vaping all day Plan: -Nicotine patch 14 mg QD #Hx of Noninsulin dependent DM Patient is already upgraded to ICU, can consider starting on ISS, however last A1C 05/20/2025 was 5.5 Health Maintenance: Code status: Full DVT prophylaxis: Heparin subq GI prophylaxis: famotidine Diet: NPO Rgaves: Yes Lines: PIV Supplemental O2: NC , oxymask, bipap Disposition: Admitted to [facility], upgraded to ICU due to worsening acid status Patient seen and reviewed with attending Dr. Blair. Note written by Blu Rose MD PGY-1 Attending Provider Attestation/Addendum After examination of the patient and review of the clinical data I feel that this patient needs admission to the hospital for further treatment/evaluation. Plan of care discussed with patient and is in agreement. I Naila Blair MD, attest that I was physically present for blank portions of evaluation, and examined patient, labs and imagings and plan of care were discussed with IM residents team, and I agree with the findings and plans documented above.
[2025-05-21 01:37] LABS: Glucose Estimated Average 111 mg/dL (80-131); Hemoglobin A1C 5.5 % Hgb (4.8-6.0)
[2025-05-21] MEDS: SODIUM CHLORIDE 0.9% 1000 ML 1,000 ML 999 ML IV (02:00)
[2025-05-21] MEDS: NICOTINE PATCH 14 MG/24 HR PATCH.TD24 TOP ×2 (02:02→08:43)
[2025-05-21] MEDS: ALBUTEROL/IPRATROPIUM (Duoneb) RT SOL 3 ML NEBU INH ×6 (03:10→22:23)
[2025-05-21] MEDS: RINGERS LACTATED 1000 ML 1,000 ML 125 ML IV (03:11)
--- NOTE | 2025-05-21 03:40 | PRELIM_ITS ---
CT scan of the chest with intravenous contrast (axial sections with sagittal and coronal reformats) May 21, 2025 at 0117 hours Clinical History: Shortness of breath Comparison: None available at the time of this report. Findings: There is no filling defect within the pulmonary artery divisions to suggest pulmonary thromboembolism. The mediastinum demonstrates no evidence of mass or lymphadenopathy. The thoracic aorta is unremarkable. There is no pericardial effusion. Bilateral lower lobes consolidation. No evidence of pleural effusion or pneumothorax. The osseous structures are unremarkable. Liver steatosis. Hepatomegaly. Mild irregular liver margins. Gallbladder sludge. Impression: 1. Bilateral lower lobes pneumonia. 2. No CT evidence of pulmonary thromboembolism. 3. Hepatomegaly associated with liver steatosis, suspicious for steatohepatitis. Possible cirrhosis. Report Electronically Signed By: Antwan Gil 05/21/2025 3:39:18 AM [EST]
[2025-05-21 03:45] LABS: Base Excess 0 (-3-3); HCO3 30 mEq/L (20-26); Inspired Oxygen, FIO2 15 %; O2 Saturation 90 % (91-98); PCO2 77 mmHg (32.0-48.0); PO2 67 mmHg (83-108); pH, Arterial 7.20 (7.35-7.45)
[2025-05-21 03:50] LABS: Allen Test Performed/OK; Puncture Site Right Radial
[2025-05-21] MEDS: RINGERS LACTATED 1000 ML 1,000 ML 999 ML IV ×2 (03:55)
--- NOTE | 2025-05-21 04:02 | ESCONSULT_ITS ---
HPI Data of Consult Requesting Physician: Naila Blair MD Admitting Provider: Naila Blair MD Attending Provider: Naila Blair MD Primary Care Provider: Desiree Byrd MD Consult Narrative Reason for consult: , AMS, hypercapnic respiratory failure History of present illness: This patient is a 20-year-old male with past medical history of [id number]-vusgptjqz type 2 diabetes, morbid obesity, schizoaffective disorder follows Dr. Gomes psychiatrist in [place] was admitted on floor on 05/21/2025 with chief complaint of 3 to 4 days of diarrhea associated with vomiting. Patient had multiple episodes without any blood. He denied any fever, chills, abdominal discomfort or any other complaint. He was able to open his eyes spontaneously. Father and boyfriend confirmed that patient had 3-4 episodes of vomiting and diarrhea after eating wings stop with his boyfriend. They had separate meals. He was appearing sick which prompted the father and boyfriend to bring him to the ED. Per patient's father and boyfriend patient had a large volume emesis. At baseline, he is generally very difficult to arouse and generally requires sternal rub and ultimately fall back asleep if not readily stood up upon waking. ED course: In the ED patient's blood pressure was 116/68, heart rate 87, RR 24 fever of 103 Fahrenheit. He was breathing on BIPAP. Labs revealed hemoglobin 13, white count 10.6, platelet 216. ABGs revealed pH 7.20, pCO2 77, pO2 67, bicarb 30. Chemistry panel revealed sodium 136, potassium 3.8, chloride 101, bicarb 26.5. Kidney function showed BUN 7 and creatinine 1.2. Blood glucose 113. A1c 5.5 lactic acid 1.6. AST 61 and ALT 59. Troponin I 0.092. TSH 4.15. Urinalysis was turbid with protein 3+, bilirubin 1+, RBC 4+, WBC 8+. U tox was negative. Influenza and HIV and COVID were negative. Upon initial assessment per day team, GCS was 14 he was alert and oriented x 4 on BiPAP, but has been continuously removing it after he was admitted to floor. Imaging: Chest x-ray showed bibasilar pneumonia.CT chest showed bilateral lower lobe pneumonia with hepatomegaly. PMH: As above PSH: None Allergies: Codeine causes psychotic symptoms Home medications: [place], olanzapine, prazosin, trazodone, clozapine SH: Patient does not work. Denies drinking alcohol. Vapes cigarettes every day. Remote history of psychedelics. Patient was admitted initially on floor for sepsis rule out most likely secondary to pneumonia versus possible GI infection and eventually upgraded to ICU due to acute hypoxic hypercapnic respiratory failure due to related to community-acquired pneumonia in the setting of morbid obesity. cc:: cc: Naila Blair MD Review of Systems Review of Systems ROS Unobtainable: due to endotracheal tube Past Medical History Past Medical History NEUROLOGIC: Negative Neurological Disorders CARDIAC: Negative Cardiac Disorders or Congestive Heart Failure RESPIRATORY: Negative Chronic Obstructive Pulmonary Disease (COPD) GASTROINTESTINAL: Negative Gastrointestinal Disorders GENITOURINARY: Negative Genitourinary Disorders or Renal Disease MUSCULOSKELETAL: Negative Musculoskeletal Disorders ENDOCRINE: Negative Endocrine Disorders, Diabetes Mellitus Type 1 or Diabetes Mellitus Type 2 HEMATOLOGIC: Negative Blood Disorders PSYCHO/SOCIAL: Positive Psychiatric Problems, Depression and Anxiety OTHER HISTORY: Negative Autism or Shingles Social History SMOKING STATUS: Current every day smoker Exam Vital Signs Temp Pulse Resp BP Pulse Ox O2 Del Method O2 Flow Rate 98 F 98 26 H 125/83 97 Oxy Mask 35 05/21/25 03:00 05/21/25 03:55 05/21/25 03:55 05/21/25 03:00 05/21/25 03:55 05/21/25 03:00 05/21/25 03:55 FiO2 65 05/21/25 03:55 Narrative Exam GENERAL APPEARANCE: Patient is morbidly obese intubated and mechanically ventilated on sedation HEENT: NC, AT. MMM. EOMI, clear conjunctiva, oropharynx clear. NECK: Supple without lymphadenopathy. No stiffness or restricted ROM. HEART: Sinus tachycardia with and regular rhythm, normal S1/S2, no m/r/g LUNGS: CTAB, moving air well. No crackles or wheezes are heard. ABDOMEN: Soft, nontender, increased abdominal girth with good bowel sounds heard. boil at pannus. BACK: No CVAT, no obvious deformity. EXTREMITIES: Without cyanosis, clubbing or edema. NEUROLOGICAL: Grossly nonfocal. Intubated and mech ventilated. CN not formally tested but appear grossly intact. Skin: Warm and dry without any rash. Psych: Unable to assess Results Labs 05/21/25 05:14 05/21/25 05:14 Labs: Short CBC 05/20/25 Range/Units 22:58 WBC 10.6 (3.8-10.6) Thou/mm3 Hgb 13.0 L (13.5-16.0) g/dL Hct 39.0 L (41.0-53.0) % Plt Count 216 (140-440) Thou/mm3 BMP 05/20/25 22:58 Sodium 136 Potassium 3.8 Chloride 101 Carbon Dioxide 26.5 BUN 7 L Creatinine 1.2 Glucose 113 H Calcium 9.4 Cardiac Enzymes 05/20/25 Range/Units 22:58 Troponin I 0.092 H* (0.0-0.045) ng/mL Liver Function 05/20/25 Range/Units 22:58 Total Bilirubin 0.3 (0.3-1.2) mg/dL AST 61 H (0-34) U/L ALT 59 H (10-49) U/L Alkaline Phosphatase 57 (46-116) U/L Albumin 5.0 (3.5-5.0) gm/dL Urine 05/20/25 Range/Units 23:25 Urine Color Drk-Yellow A (Lt Yel-Yel) Urine Clarity Turbid A (Clear/Hazy) Urine pH 6.0 (5.0-7.0) Ur Specific [place] 1.034 (1.001-1.035) Urine Protein 3+ A (Neg - Trace) Urine Glucose (UA) Negative (Negative) ABG Interpretation ABG results: 05/20/25 05/21/25 22:58 03:36 ABG pH 7.20 L ABG pCO2 77 H* ABG pO2 67 L ABG HCO3 30 H ABG O2 Saturation 90 L ABG Base Excess 0 VBG pH 7.36 VBG pCO2 50 VBG pO2 50 VBG Base Excess 2 Quality Measures Quality Measures sepsis Current suspected stage: sepsis Possible source: pulmonary Blood cultures ordered: yes Antibiotic ordered: Yes Medications Home Medications and Allergies Home Medications ?Medication ?Instructions ?Recorded ?Confirmed ?Type lithium carbonate 150 mg capsule 600 mg PO HS 10/02/21 05/21/25 History prazosin 1 mg capsule 1 mg PO QDAY 10/02/21 History bupropion HCl 150 mg 24 hr tablet, 300 mg PO .AM 05/2105/21/25 History extended release clozapine 100 mg tablet 450 mg PO DAILY 05/21/25 History divalproex 250 mg tablet,delayed 250 mg PO HS 05/21/25 05/21/25 History release divalproex 500 mg tablet,extended 500 mg PO HS 5 05/21/25 History release 24 hr metformin 500 mg tablet 500 mg PO BID 05/21/2505/21 History venlafaxine 37.5 mg 37.5 mg PO DAILY 05/21/25 History capsule,extended release 24 hr venlafaxine 75 mg capsule,extended 150 mg PO DAILY 05/21/25 History release 24 hr Allergies Allergy/AdvReac Type Severity Reaction Status Date / Time codeine AdvReac Severe ALTERED Verified 11/16/20 19:33 Visit Medications Acetaminophen (Acetaminophen 325 Mg Tablet) 650 mg PO Q6H PRN PRN Reason: Fever >100.4 or pain 1-3 Stop: 06/20/25 00:36 Hydrocodone Bitart/Acetaminophen (Hydrocodone/Apap 5/325 Tablet) 1 tab PO Q4HR PRN PRN Reason: PAIN SCALE 4-6 (Moderate Stop: 05/26/25 00:41 Albuterol/Ipratropium (Albuterol/Ipratropium (Duoneb) Rt Jannie 3 Ml Nebu) 3 ml INH Q4HRRT [facility] Stop: 06/20/25 02:59 Last Admin: 05/21/25 03:10 Dose: 3 ml Docusate Sodium (Docusate Sod 100 Mg Capsule) 100 mg PO QDAY [facility]; Protocol Stop: 06/20/25 08:59 Famotidine (Famotidine Inj 10 Mg/Ml Vial 2 Ml) 20 mg IVP Q12HR [facility] Stop: 06/20/25 08:59 Heparin Sodium (Porcine) (Heparin Sod Inj 5000 Unit/Ml Vial) 5,000 unit SC Q12HR [facility] Stop: 06/04/25 08:59 Acetaminophen (Ofirmev Inj) 1,000 mg in 100 mls @ 250 mls/hr IV Q6HR [facility] Stop: 05/21/25 18:23 Last Infusion: 05/20/25 23:49 Dose: Infused Ceftriaxone Sodium/Dextrose (Rocephin/D5w 1gm Iv Premix) 1 gm in 50 mls @ 100 mls/hr IV QDAY [facility] Stop: 05/28/25 01:16 Azithromycin 500 mg/ Sodium (Chloride) 250 mls @ 250 mls/hr IV QDAY [facility] Stop: 05/28/25 01:17 Lactated Ringer's (Lactated Ringers) 1,000 mls @ 999 mls/hr IV .Q1H1M ONE Stop: 05/21/25 04:46 Last Admin: 05/21/25 03:55 Dose: 999 mls/hr Lactated Ringer's (Lactated Ringers) 1,000 mls @ 999 mls/hr IV .Q1H1M ONE Stop: 05/21/25 05:55 Last Admin: 05/21/25 03:55 Dose: 999 mls/hr Lactated Ringer's (Lactated Ringers) 1,000 mls @ 125 mls/hr IV .Q8H [facility] Stop: 05/21/25 13:59 [place] Carbonate ([place] Carb 150 Mg Capsule) 150 mg PO QDAY [facility] Stop: 06/20/25 08:59 Nicotine (Nicotine Patch 14 Mg/24 Hr Patch.Td24) 14 mg TOP QDAY [facility] Stop: 06/20/25 08:59 Olanzapine (Olanzapine 5 Mg Tablet) 20 mg PO QDAY [facility] Stop: 06/20/25 08:59 Ondansetron HCl (Ondansetron Inj 2 Mg/Ml Inj 2 Ml) 4 mg IVP Q6H PRN; Protocol PRN Reason: NAUSEA OR VOMITING Stop: 06/20/25 00:36 Prazosin HCl (Prazosin Hcl 1 Mg Capsule) 1 mg PO HS [facility] Stop: 06/20/25 20:59 Trazodone HCl (Trazodone Hcl 50 Mg Tablet) 50 mg PO HS [facility]NAN[facility] Stop: 06/20/25 20:59 Valproic Acid (Valproic Acid Syrup 250 Mg/5 Ml Udc) 500 mg PO BID [facility]NAN[facility] Stop: 06/20/25 08:59 Discontinued Medications Guaifenesin (Guaifenesin Syrup 200 Mg/10 Ml Udc) 200 mg PO X1 ONE; Protocol Stop: 05/21/25 01:09 Last Admin: 05/21/25 01:54 Dose: Not Given Ceftriaxone Sodium/Dextrose (Rocephin/D5w 1gm Iv Premix) 1 gm in 50 mls @ 100 mls/hr IV X1 ONE Stop: 05/20/25 23:19 Last Infusion: 05/21/25 01:50 Dose: Infused Azithromycin 500 mg/ Sodium (Chloride) 250 mls @ 250 mls/hr IV X1 ONE Stop: 05/20/25 23:49 Last Infusion: 05/21/25 02:23 Dose: Infused Lactated Ringer's (Lactated Ringers) 1,000 mls @ 75 mls/hr IV .[id number] [facility] Stop: 06/20/25 00:44 Last Admin: 05/21/25 01:50 Dose: Not Given Lactated Ringer's (Lactated Ringers) 1,000 mls @ 125 mls/hr IV .Q8H [facility] Stop: 06/20/25 01:06 Last Admin: 05/21/25 02:22 Dose: Not Given Lactated Ringer's (Lactated Ringers) 1,000 mls @ 3,000 mls/hr IV .Q20M ONE Stop: 05/21/25 01:27 Last Admin: 05/21/25 02:23 Dose: Not Given Lactated Ringer's (Lactated Ringers) 1,000 mls @ 999 mls/hr IV .Q1H1M ONE Stop: 05/21/25 02:10 Lactated Ringer's (Lactated Ringers) 1,000 mls @ 43.54 mls/hr IV .[id number] ONE Stop: 05/22/25 00:08 Last Admin: 05/21/25 02:23 Dose: Not Given Sodium Chloride (Ns) 1,000 mls @ 999 mls/hr IV .Q1H1M ONE Stop: 05/21/25 02:41 Last Admin: 05/21/25 02:00 Dose: 999 mls/hr Sodium Chloride (Ns) 1,000 mls @ 4,350 mls/hr IV .Q14M ONE Stop: 05/21/25 01:55 Last Admin: 05/21/25 02:23 Dose: Not Given Lactated Ringer's (Lactated Ringers) 1,000 mls @ 125 mls/hr IV .Q8H [facility] Stop: 05/21/25 18:59 Last Infusion: 05/21/25 03:56 Dose: 0 mls/hr Nicotine (Nicotine Patch 14 Mg/24 Hr Patch.Td24) 14 mg TOP X1 ONE Stop: 05/21/25 01:15 Last Admin: 05/21/25 02:02 Dose: 14 mg Sodium Chloride (Sodium Chloride Rt 10% 15 Ml Nebu) 5 ml INH X1 ONE Stop: 05/21/25 00:19 Assessment & Plan Plan This patient is a 20-year-old male with past medical history of mxf-bmmhsiv-zhonuxfaq type 2 diabetes, morbid obesity, schizoaffective disorder follows Dr. Gomes psychiatrist in [place] was admitted on floor on 05/21/2025 with chief complaint of 3 to 4 days of diarrhea associated with vomiting.Patient was admitted initially on floor for sepsis rule out most likely secondary to pneumonia versus possible GI infection and eventually upgraded to ICU due to acute hypoxic hypercapnic respiratory failure due to related to community- acquired pneumonia in the setting of morbid obesity. Neurology #Acute encephalopathy DDx: Hypercapnia, acidosis, polypharmacy on multiple psych meds -U tox was negative. Etoh negative Rx -Intubated and mechanically ventilated -Anticipate correction of acidosis with ventilator -Currently holding psych meds -Treating with antibiotics Rxx: -Follow-up with ABGs #History of schizoaffective disorder - Patient has a longstanding history of schizoaffective disorder. Follows psychiatrist, Dr. Gomes in [place] who sees patients biweekly on Zoom and monthly in person. Rx -Currently holding lithium 150 mg daily, Zyprexa 20 mg daily and trazodone 50 mg at bedtime and clozapine -Continue with prazosin 1 mg at bedtime -Continue valproic acid Rxx: - Follow-up with lithium levels #History of vaping -Patient currently vapes all day. Rx -Nicotine patch Cardiovascular #Sepsis and acute hypoxic and hypercapnic respiratory failure 2/2 #Community-acquired pneumonia along with aspiration pneumonia - Patient met 3/4 SIRS criteria with tachycardia tachypnea and fever with possible source of infection pneumonia versus GI infection. - Patient was placed on BiPAP to help with work of breathing. Dx: -Chest x-ray showed bibasilar pneumonia. -CT chest showed bilateral lower lobe pneumonia with hepatomegaly. -Procal 0.24 -No white count elevation seen Rx -Continue with Rocephin and azithromycin -Consider adding steroid as needed - DuoNebs as needed Rxx - Follow-up with ABGs and chest x-ray #NSTEMI type II - Mild elevation in troponin I 0.092. Patient denied any chest pain prior to AMS Rx -Follow-up with EKG to evaluate for any ST-T changes -Trend troponin I Q6 hourly Respiratory #Acute hypercapnic hypoxic respiratory failure DDx: Sepsis due to community-acquired pneumonia, morbid obesity, polypharmacy -Patient met 3/4 SIRS criteria with tachycardia tachypnea and fever he was on BiPAP when he presented with possible source of fracture pneumonia confirmed on chest x-ray. Dx: -Chest x-ray revealed bibasilar pneumonia which was also seen on CT chest. -ABGs showed pH 7.20, pCO2 77, pO2 67. -Patient is intubated with ET tube 8.5 at 23 cm with etomidate 40 and succinylcholine 100 by ED physician -Post chest x-ray was followed showed satisfactory ET tube position and OG pressures Rx -Intubated and mechanically ventilated with sedation -Vent settings tidal volume 6-7 mL/kg 520, RR 24, PEEP 5 Fio2 100 -Sedation with propofol and fentanyl RASS of -3 -Levophed added if MAP drops below 65 -Continue with lung protective measures -Monitor Plateau pressures Rxx - Follow-up with blood gases and chest x-ray GI and F/E/N #Intractable nausea and vomiting DDx: Viral gastroenteritis -Multiple episodes of diarrhoea and vomiting; multiple episodes without blood Rx -Supportive care - IV fluids [3 L bolus given x 1] -On antibiotics Rxx -Follow-up with stool studies #Abdominal boil -Patient has a boil on the pannus. Not draining. Rx -Closely monitor for drainage Renal #ELIECER DDx: Dehydration due to intractable nausea and vomiting -Creatinine 1.2 baseline 0.8. Rx -IV fluid resuscitation - Avoid nephrotoxic agents - Renally dose medication - Strict intake and output Heme #Normocytic anemia Dx -Hemoglobin 12.2 Rx -PRBC if hemoglobin drop below 7 Rxx - Daily labs Endo #History of wfs-xqgqyqu-yjmxqwswv type 2 diabetes -Patient is currently not on any medications. Dx: -A1c 5.5 Rx - Blood sugar checks Q6 hourly ID #Community-acquired pneumonia #GI infection likely viral gastroenteritis Rx -Continue with IV Rocephin [05/21?and azithromycin [11/24? Rxx - Follow-up blood cultures, sputum cultures and MRSA screen ICU health Maintenance: DVT prophylaxis: Heparin SQ GI prophylaxis: Protonix 40 mg IV daily Diet: NPO Graves: PLACED Lines: Peripherals Drips: Propofol and fentanyl with RAAS -3 Vent: Volume control CODE STATUS: Full code Reason of hospitalization: Patient is upgraded to ICU for acute encephalopathy and acute hypoxic hypercapnic respiratory failure due to community-acquired pneumonia in setting of morbid obesity. Patient discussed with my attending, Dr.Alhaliabeh Parker rodrigez MD, PGY 3 Attending Provider Attestation/Addendum After examining patient and review of the clinical data patient was found to have high probability of imminent deterioration which required my direct management and intervention TOTAL CC TIME: 60 MIN TOTAL TIME: 60 Minutes of direct medical management and planning of care. I Naila Blair MD, attest that I was physically present for blank portions of evaluation, and examined patient, labs and imagings and plan of care were discussed with IM residents team, and I agree with the findings and plans documented above. this patient had a high probability of imminent or life-threatening deterioration due to severe symptomatic hyponatremia, which required my direct attention, intervention, and personal management
[2025-05-21] MEDS: ETOMIDATE INJ 2 MG/ML VIAL 10 ML 40 MG IVP (04:15)
[2025-05-21] MEDS: SUCCINYLCHOLINE INJ 20 MG/ML VIAL 10 ML 200 MG IV (04:16)
--- NOTE | 2025-05-21 04:18 | XR_ITS ---
EXAMINATION: AP chest single view TECHNIQUE: AP portable supine chest single view Date and time: May 21, 2025, 0432 hours, comparison May 20, 2025 INDICATIONS: Hypoxic respiratory failure, pneumonia this week. FINDINGS: Mild enlargement left ventricle Prominent vascular congestion Perihilar edema and/or pneumonia Orogastric tube in the stomach Tracheal tube tip 5.9 cm above belle. Normal bone density IMPRESSION: Mild enlargement left ventricle Prominent vascular congestion Perihilar edema and/or pneumonia, clinical correlation advised. Tracheal tube tip 5.9 cm above belle
[2025-05-21] MEDS: PROPOFOL 1,000 MG IVPB 1,000 MG/100 ML VIAL 4.754 MG IV (04:25)
[2025-05-21] MEDS: fentaNYL 2,500 MCG/250 ML BAG 2,500 MCG/250 ML BAG IV (04:28)
--- NOTE | 2025-05-21 04:56 | PC.NURSE ---
rapid response called for patient (see documentation) for decreased level of responsiveness and unable to maintain O2 > 88 on 15L oxymask. Pt only arousable to sternal rub but confused, dr hwang, dr ridley, and dr chance at bedside. Pt initially started on high flow, then transferred to ICU for intubation at 0400 after abg results. Family, significant other and father, at bedside given update and taken to ICU waiting room to wait for the patient.
[2025-05-21] MEDS: RINGERS LACTATED 1000 ML 1,000 ML 150 ML IV (05:03)
[2025-05-21 06:10] LABS: Basophils # (Auto) 0.1 Thou/mm3 (0.0-0.2); Basophils % (Auto) 1 % (0-2.5); Eosinophils # (Auto) 0.1 Thou/mm3 (0.0-0.5); Eosinophils % (Auto) 1 % (0-10); Hematocrit 37.5 % (41.0-53.0); Hemoglobin 12.2 g/dL (13.5-16.0); Immature Granulocytes Auto 0.17 Thou/mm3 (0.00-0.00); Lymphocytes # (Auto) 1.7 Thou/mm3 (1.0-4.8); Lymphocytes % (Auto) 18 % (10-50); Mean Corpuscular HGB Conc 32.5 g/dl (31.0-37.0); Mean Corpuscular Hemoglobin 30.3 pg (25.0-35.0); Mean Corpuscular Volume 93 fL (80-100); Monocytes # (Auto) 1.1 Thou/mm3 (0.0-0.8); Monocytes % (Auto) 12 % (0-12); Neutrophils # (Auto) 6.2 Thou/mm3 (1.8-7.7); Neutrophils % (Auto) 66 % (37-80); Nucleated Red Blood Cell # 0.00 Thou/mm3 (0.00-0.00); Nucleated Red Blood Cell % 0 /100 WBC (0); Platelet Count 165 Thou/mm3 (140-440); RDW Standard Deviation 43.1 fL (35.1-43.9); Red Blood Count 4.02 Miln/mm3 (4.50-5.90); White Blood Count 9.3 Thou/mm3 (3.8-10.6)
[2025-05-21 06:39] LABS: Alanine Aminotransferase 49 U/L (10-49); Albumin, Serum 4.3 gm/dL (3.5-5.0); Albumin/Globulin Ratio 1.7 (1.2-2.2); Alkaline Phosphatase 49 U/L (46-116); Anion Gap 9 (7-16); Aspartate Amino Transferase 53 U/L (0-34); BUN/Creatinine Ratio 5 Ratio (12-20); Bilirubin,Total 0.3 mg/dL (0.3-1.2); Blood Urea Nitrogen 5 mg/dL (9-23); Calcium 8.8 mg/dL (8.3-10.6); Calcium (Corrected) 8.8 mg/dL (8.5-10.1); Carbon Dioxide 27.6 mMol/L (20.0-31.0); Chloride 102 mMol/L (98-107); Creatinine (Component) 1.0 mg/dL (0.6-1.3); Estimated Creatinine Clearance 184.7 mL/min (>60); Globulin 2.5 gm/dL (2.3-3.5); Glucose 106 mg/dL (74-106); Magnesium 1.9 mg/dL (1.6-2.6); Osmolality,Calculated 274 (275-295); Phosphorous 4.6 mg/dL (2.4-5.1); Potassium 4.6 mMol/L (3.4-5.1); Procalcitonin 0.24 ng/ml (0.0-0.49); Sodium 139 mMol/L (136-145); Total Protein 6.8 gm/dL (5.7-8.2); eGFR > 60 See Note
[2025-05-21 07:15] LABS: Troponin I 0.059 ng/mL (0.0-0.045)
[2025-05-21] MEDS: PROPOFOL 1,000 MG IVPB 1,000 MG/100 ML VIAL 33.28 MG IV ×2 (07:23→17:12)
--- NOTE | 2025-05-21 07:45 | EKG_ITS ---
[facility] Test Date: 2025-05-21 Pat Name: SOURAV CORONEL [facility] [employer] Consultant: JAH : [id number] Requested By: Parker Smallwood Order Number: [id number] Reading MD: Parker Smallwood Measurements Intervals [place] Rate: 81 P: 51 WA: 158 QRS: 48 QRSD: 106 T: 49 QT: 363 QTc: 423 Interpretive Statements SINUS RHYTHM Compared to ECG 08/02/2024 09:48:46 Sinus arrhythmia no longer present /store/S0/[id number].pdf
[2025-05-21 07:50] LABS: Base Excess 3 (-3-3); HCO3 27 mEq/L (20-26); Inspired Oxygen, FIO2 75 %; O2 Saturation 101 % (91-98); PCO2 40 mmHg (32.0-48.0); PO2 240 mmHg (83-108); pH, Arterial 7.44 (7.35-7.45)
[2025-05-21 07:53] LABS: Allen Test Performed/OK; Puncture Site Left Brachial
[2025-05-21] MEDS: FAMOTIDINE INJ 10 MG/ML VIAL 2 ML 20 MG IVP ×2 (08:43→21:07)
[2025-05-21] MEDS: VALPROIC ACID SYRUP 250 MG/5 ML UDC 500 MG NG ×2 (08:43→21:08)
[2025-05-21] MEDS: HEPARIN SOD INJ 5000 UNIT/ML VIAL SC (08:43)
--- NOTE | 2025-05-21 09:07 | ESPR_ITS ---
<Statement entered by Uday Navas MD - 05/21/25 17:40> I have reviewed the note and agree with the resident's assessment & plan with exceptions as below. I have personally reviewed labs, imaging, home meds/prior records, examined the patient, formulated and discussed management plan with my attending Patient was seen examined bedside morning. No acute overnight events. Patient was initially admitted to the medical floors due to pneumonia and increased confusion. Shortly after admission patient had worsening confusion with increased work of breathing and patient was subsequently intubated given that ABG that showed severe acidosis with hypercapnia. Patient's morning ABG that showed improvement in acidosis as well as hypercapnia and therefore ventilator settings were changed with respiratory rate of 16 and FiO2 of 35. Patient was also given a sedation holiday to assess his neurological status and possibly extubate the patient if he meets parameters. Reviewed patient's chest CT and patient does appear to have some significant pneumonia therefore we will also start prednisone 50 mg daily along with azithromycin and Rocephin for now. If patient does deteriorate will likely broaden antibiotics. Otherwise no other complaints at this time. Patient's mother and partner were updated patient's current condition at bedside. Patient in the afternoon had an episode of agitation when he was turned and he started aggressively moving around in bed and his O2 sats dropped to the low 60s and at this time patient was bagged and was given 4 mg of Versed along with propofol drip at 35 and then maxed out and fentanyl at 100 emergency titration both. At this time then patient was having improvement in his O2 sats at this time and ABG was ordered a chest x-ray to confirm good positioning of the ET tube still. Patient was also given rocuronium 100 mg as he was breathing over the vent and then ventilatory settings was changed to tidal volume 480 with a flow of 65 FiO2 of 80 and a PEEP of 12. Will order repeat ABG half an hour after the settings were changed. Uday Navas PGY2 Disclaimer: Even though this this note was dictated by speech recognition and even though it was carefully revised there may still be minor errors in classification and treatment director due to voice recognition software. Documentation for date of: 05/21/25 Subjective Subjective Interval history: This patient is a 20-year-old male with past medical history of qsr-lohxgok-qnklvgowg type 2 diabetes, morbid obesity, schizoaffective disorder follows Dr. Gomes psychiatrist in [place] was admitted on floor on 05/21/2025 with chief complaint of 3 to 4 days of diarrhea associated with vomiting. Patient had multiple episodes without any blood. He denied any fever, chills, abdominal discomfort or any other complaint. Upon initial assessment per day team, GCS was 14 he was alert and oriented x 4 on BiPAP. He was able to open his eyes spontaneously. Father and boyfriend confirmed that patient had 3-4 episodes of vomiting and diarrhea after eating wings stop with his boyfriend. They had separate meals. He was appearing sick which prompted the father and boyfriend to bring him to the ED. Per patient's father and boyfriend patient had a large volume emesis. At baseline, he is generally very difficult to arouse and generally requires sternal rub and ultimately fall back asleep if not readily stood up upon waking. ED course: In the ED patient's blood pressure was 116/68, heart rate 87, RR 24 fever of 103 Fahrenheit. He was breathing on BIPAP. Labs revealed hemoglobin 13, white count 10.6, platelet 216. ABGs revealed pH 7.20, pCO2 77, pO2 67, bicarb 30. Chemistry panel revealed sodium 136, potassium 3.8, chloride 101, bicarb 26.5. Kidney function showed BUN 7 and creatinine 1.2. Blood glucose 113. A1c 5.5 lactic acid 1.6. AST 61 and ALT 59. Troponin I 0.092. TSH 4.15. Urinalysis was turbid with protein 3+, bilirubin 1+, RBC 4+, WBC 8+. U tox was negative. Influenza and HIV and COVID were negative. Imaging: Chest x-ray showed bibasilar pneumonia.CT chest showed bilateral lower lobe pneumonia with hepatomegaly. PMH: As above PSH: None Allergies: Codeine causes psychotic symptoms Home medications: [place], olanzapine, prazosin, trazodone, clozapine SH: Patient does not work. Denies drinking alcohol. Vapes cigarettes every day. Remote history of psychedelics. Patient was admitted initially on floor for sepsis rule out most likely secondary to pneumonia versus possible GI infection and eventually upgraded to ICU due to acute hypoxic hypercapnic respiratory failure due to related to community-acquired pneumonia in the setting of morbid obesity. Interval History: Patient was admitted overnight. Throughout the morning, the patient was weaned off of sedation, however the patient was only briefly open eyes to voice and did not follow commands. The patient was kept on mechanical ventilation and sedation holiday was continued. Patient's morning ABG showed improvement in the patient's acidosis and hypercapnia, so respiratory rate was decreased. ICU team opted to keep the patient on AC/VC mode to decrease the patient's work of breathing as the patient's CT did appear to have significant pneumonia bilaterally. Sputum cultures are still pending, but preliminary Gram stain results did show rare gram-positive cocci. Will continue the patient on ceftriaxone and azithromycin. The patient was started on prednisone 50 mg daily in addition to his current antibiotic regimen as his community-acquired pneumonia would be classified as severe as the patient required intubation and mechanical ventilation. The mother at bedside asked ICU team to call her when the plan to extubate the patient as the patient has been known to have difficulties with anxiety. Later in the afternoon, the patient was still off of sedation and when the nurse went to turn the patient, the patient initially followed her commands, but then became agitated and trying to pull out his ET tube. The patient had O2 desaturation into the low 60s, so the patient was bagged and given 4 mg of Versed and resumed propofol and fentanyl drip. The patient calmed down and was given a one-time dose of rocuronium to paralyze the patient. Will have the night team follow-up with additional ABGs and will see if extubation is possible tomorrow. The patient was noted to have about 3.5 L of urine output throughout the day, to which the boyfriend at bedside does note that the patient frequently has to use the bathroom to urinate because he takes lithium. Exam Vital Signs Temp Pulse Resp BP Pulse Ox O2 Del Method O2 Flow Rate 97.4 F 85 24 H 136/70 H 100 Mechanical Ventilation 35 05/21/25 04:55 05/21/25 07:03 05/21/25 06:18 05/21/25 06:11 05/21/25 07:03 05/21/25 04:55 05/21/25 04:00 FiO2 100 05/21/25 07:13 Narrative Exam GENERAL APPEARANCE: Patient is morbidly obese intubated and mechanically ventilated on sedation HEENT: NC, AT. MMM. EOMI, clear conjunctiva, oropharynx clear. NECK: Supple without lymphadenopathy. No stiffness or restricted ROM. HEART: Sinus tachycardia with and regular rhythm, normal S1/S2, no m/r/g LUNGS: CTAB, moving air well. No crackles or wheezes are heard. ABDOMEN: Soft, nontender, increased abdominal girth with good bowel sounds heard. boil at pannus. BACK: No CVAT, no obvious deformity. EXTREMITIES: Without cyanosis, clubbing or edema. NEUROLOGICAL: Grossly nonfocal. Intubated and mech ventilated. CN not formally tested but appear grossly intact. Skin: Warm and dry without any rash. Psych: Unable to assess Objective Labs 05/21/25 05:14 05/21/25 05:14 Labs: Laboratory Results - last 24 hr 05/20/25 05/20/25 05/20/25 22:58 23:00 23:25 WBC 10.6 RBC 4.30 L Hgb 13.0 L Hct 39.0 L MCV 91 MCH 30.2 MCHC 33.3 RDW Std Deviation 40.9 Plt Count 216 Neut % (Auto) 58 Lymph % (Auto) 20 [place] % (Auto) 16 H Eos % (Auto) 2 Baso % (Auto) 1 Neut # (Auto) 6.2 Lymph # (Auto) 2.1 Spencer # (Auto) 1.7 H Eos # (Auto) 0.2 Baso # (Auto) 0.1 Immature Gran # (Auto) 0.34 H Absolute Nucleated RBC 0.00 Immature Gran % 3 H Nucleated RBC % 0 Puncture Site ABG pH ABG pCO2 ABG pO2 ABG HCO3 ABG O2 Saturation ABG Base Excess VBG pH 7.36 VBG pCO2 50 VBG pO2 50 VBG O2 Sat (Radha) 86 L VBG Base Excess 2 FiO2 Sodium 136 Potassium 3.8 Chloride 101 Carbon Dioxide 26.5 Anion Gap 9 BUN 7 L Creatinine 1.2 Estim Creat Clear Calc 146.7 eGFR > 60 BUN/Creatinine Ratio 6 L Glucose [address] Glu mg/dL 111 Hemoglobin A1c 5.5 Calculated Osmolality 270 L Lactic Acid 1.6 Calcium 9.4 Corrected Calcium 9.4 Phosphorus Magnesium Total Bilirubin 0.3 AST 61 H ALT 59 H Alkaline Phosphatase 57 Troponin I 0.092 H* Total Protein 7.9 Albumin 5.0 Globulin 2.9 Albumin/Globulin Ratio 1.7 Procalcitonin TSH 4.15 Ur Collection Type Catheter Urine Color Drk-Yellow A Urine Clarity Turbid A Urine pH 6.0 Ur Specific [place] 1.034 Urine Protein 3+ A Urine Glucose (UA) Negative Urine Ketones Trace Urine Blood Trace Urine Nitrite Negative Urine Bilirubin 1+ A Urine Urobilinogen (Auto) 2.0 Ur Leukocyte Esterase Negative Urine RBC 4 H Urine WBC 8 H Ur Squamous Epith Cells 0 Urine Bacteria None Hyaline Casts 7 H Urine Opiates Screen Negative Urine Fentanyl Screen Negative Ur Barbiturates Screen Negative U Amphetamin/Meth Scrn Negative U Benzodiazepines Scrn Negative U Cocaine Metab Screen Negative U Marijuana (THC) Screen Negative Ethyl Alcohol < 3.0 HIV 1&2 Antibody Rapid Non-Reactive Influenza A (Rapid) Negative Influenza B (Rapid) Negative 05/21/25 05/21/25 05/21/25 03:36 05:14 07:36 WBC 9.3 RBC 4.02 L Hgb 12.2 L Hct 37.5 L MCV 93 MCH 30.3 MCHC 32.5 RDW Std Deviation 43.1 Plt Count 165 D Neut % (Auto) 66 Lymph % (Auto) 18 Spencer % (Auto) 12 Eos % (Auto) 1 Baso % (Auto) 1 Neut # (Auto) 6.2 Lymph # (Auto) 1.7 Spencer # (Auto) 1.1 H Eos # (Auto) 0.1 Baso # (Auto) 0.1 Immature Gran # (Auto) 0.17 H Absolute Nucleated RBC 0.00 Immature Gran % 2 H Nucleated RBC % 0 Puncture Site Right Radial Left Brachial ABG pH 7.20 L 7.44 D ABG pCO2 77 H* 40 D ABG pO2 67 L 240 H D ABG HCO3 30 H 27 H ABG O2 Saturation 90 L 101 H ABG Base Excess 0 3 VBG pH VBG pCO2 VBG pO2 VBG O2 Sat (Radha) VBG Base Excess FiO2 15 75 Sodium 139 Potassium 4.6 D Chloride 102 Carbon Dioxide 27.6 Anion Gap 9 BUN 5 L Creatinine 1.0 Estim Creat Clear Calc 184.7 eGFR > 60 BUN/Creatinine Ratio 5 L Glucose [address] Glu mg/dL Hemoglobin A1c Calculated Osmolality 274 L Lactic Acid Calcium 8.8 Corrected Calcium 8.8 Phosphorus 4.6 Magnesium 1.9 Total Bilirubin 0.3 AST 53 H ALT 49 Alkaline Phosphatase 49 Troponin I 0.059 H* Total Protein 6.8 Albumin 4.3 D Globulin 2.5 Albumin/Globulin Ratio 1.7 Procalcitonin 0.24 TSH Ur Collection Type Urine Color Urine Clarity Urine pH Ur Specific [place] Urine Protein Urine Glucose (UA) Urine Ketones Urine Blood Urine Nitrite Urine Bilirubin Urine Urobilinogen (Auto) Ur Leukocyte Esterase Urine RBC Urine WBC Ur Squamous Epith Cells Urine Bacteria Hyaline Casts Urine Opiates Screen Urine Fentanyl Screen Ur Barbiturates Screen U Amphetamin/Meth Scrn U Benzodiazepines Scrn U Cocaine Metab Screen U Marijuana (THC) Screen Ethyl Alcohol HIV 1&2 Antibody Rapid Influenza A (Rapid) Influenza B (Rapid) ABG Interpretation ABG results: 05/20/25 05/21/25 05/21/25 22:58 03:36 07:36 ABG pH 7.20 L 7.44 D ABG pCO2 77 H* 40 D ABG pO2 67 L 240 H D ABG HCO3 30 H 27 H ABG O2 Saturation 90 L 101 H ABG Base Excess 0 3 VBG pH 7.36 VBG pCO2 50 VBG pO2 50 VBG Base Excess 2 Quality Measures Quality Measures sepsis Current suspected stage: sepsis Possible source: pulmonary Blood cultures ordered: yes Antibiotic ordered: Yes Assessment & Plan Assessment Current Active Medications: Generic Name Dose Route Start Last Admin Trade Name Freq PRN Reason Stop Dose Admin Acetaminophen 650 mg 05/21/25 00:37 Acetaminophen 325 Mg Tablet PO 06/20/25 00:36 Q6H PRN Fever >100.4 or pain 1-3 Hydrocodone Bitart/Acetaminophen 1 tab 05/21/25 00:42 Hydrocodone/Apap 5/325 Tablet PO 05/26/25 00:41 Q4HR PRN PAIN SCALE 4-6 (Moderate Albuterol/Ipratropium 3 ml 05/21/25 03:00 05/21/25 06:49 Albuterol/Ipratropium (Duoneb) Rt Jannie 3 Ml Nebu INH 06/20/25 02:59 3 ml Q4HRRT ANANDA Administration Docusate Sodium 100 mg 05/21/25 09:00 05/21/25 08:41 Docusate Sod 100 Mg Capsule PO 06/20/25 08:59 Not Given QDAY ANANDA Protocol Famotidine 20 mg 05/21/25 09:00 05/21/25 08:43 Famotidine Inj 10 Mg/Ml Vial 2 Ml IVP 06/20/25 08:59 20 mg Q12HR ANANDA Administration Heparin Sodium (Porcine) 5,000 unit 05/21/25 09:00 05/21/25 08:43 Heparin Sod Inj 5000 Unit/Ml Vial SC 06/04/25 08:59 5,000 unit Q12HR ANANDA Administration Ceftriaxone Sodium/Dextrose 1 gm in 50 mls @ 100 mls/hr 05/21/25 21:00 Rocephin/D5w 1gm Iv Premix IV 05/28/25 20:59 QDAY@2100 ANANDA Azithromycin 500 mg/ Sodium 250 mls @ 250 mls/hr 05/21/25 21:00 Chloride IV 05/28/25 20:59 QDAY@2100 ANANDA Norepinephrine/Dextrose 8 mg in 250 mls @ 14.857 mls/hr 05/21/25 04:20 Levophed In D5w 8mg/250ml IV 06/20/25 04:19 .[id number] PRN PER PROTOCOL Protocol 0.05 MCG/KG/MIN Propofol 1,000 mg in 100 mls @ 4.754 mls/hr 05/21/25 04:32 05/21/25 07:23 Diprivan Ivpb IV 06/20/25 04:02 35 mcg/kg/min .Q21H3M PRN 33.28 mls/hr PER PROTOCOL Administration Protocol 5 MCG/KG/MIN Fentanyl Citrate 2,500 mcg in 250 mls @ 2.5 mls/hr 05/21/25 04:32 Sublimaze Inj 2,500 Mcg/250 Ml Bag IV 05/26/25 04:19 .Q24H PRN PER PROTOCOL Protocol 25 MCG/HR [place] Carbonate 150 mg 05/21/25 09:00 [place] Carb 150 Mg Capsule PO 06/20/25 08:59 On Hold: 05/21/25 09:00 QDAY ANANDA Nicotine 14 mg 05/21/25 09:00 05/21/25 08:43 Nicotine Patch 14 Mg/24 Hr Patch.Td24 TOP 06/20/25 08:59 14 mg QDAY ANANDA Administration Olanzapine 20 mg 05/21/25 09:00 Olanzapine 5 Mg Tablet PO 06/20/25 08:59 On Hold: 05/21/25 09:00 QDAY ANANDA Ondansetron HCl 4 mg 05/21/25 00:37 Ondansetron Inj 2 Mg/Ml Inj 2 Ml IVP 06/20/25 00:36 Q6H PRN NAUSEA OR VOMITING Protocol Prazosin HCl 1 mg 05/21/25 21:00 Prazosin Hcl 1 Mg Capsule PO 06/20/25 20:59 HS ANANDA Valproic Acid 500 mg 05/21/25 09:00 05/21/25 08:43 Valproic Acid Syrup 250 Mg/5 Ml Udc NG 06/20/25 08:59 500 mg BID ANANDA Administration Plan This patient is a 20-year-old male with past medical history of opn-[id number] type 2 diabetes, morbid obesity, schizoaffective disorder follows Dr. Gomes psychiatrist in [place] was admitted on floor on 05/21/2025 with chief complaint of 3 to 4 days of diarrhea associated with vomiting.Patient was admitted initially on floor for sepsis rule out most likely secondary to pneumonia versus possible GI infection and eventually upgraded to ICU due to acute hypoxic hypercapnic respiratory failure due to related to community- acquired pneumonia in the setting of morbid obesity. Neurology #Acute encephalopathy DDx: Hypercapnia, acidosis, polypharmacy on multiple psych meds -U tox was negative. Etoh negative Rx -Intubated and mechanically ventilated -Anticipate correction of acidosis with ventilator -Currently holding psych meds -Treating with antibiotics #History of schizoaffective disorder - Patient has a longstanding history of schizoaffective disorder. Follows psychiatrist, Dr. Gomes in [place] who sees patients biweekly on Zoom and monthly in person. Rx -Currently holding lithium 150 mg daily, Zyprexa 20 mg daily and trazodone 50 mg at bedtime and clozapine -Continue with prazosin 1 mg at bedtime -Continue valproic acid Rxx: - Follow-up with lithium levels #History of vaping -Patient currently vapes all day. Rx -Nicotine patch Cardiovascular #Sepsis and acute hypoxic and hypercapnic respiratory failure 2/2 #Community-acquired pneumonia - Patient met 3/4 SIRS criteria with tachycardia tachypnea and fever with possible source of infection pneumonia versus GI infection. - Patient was placed on BiPAP to help with work of breathing. Dx: -Chest x-ray showed bibasilar pneumonia. -CT chest showed bilateral lower lobe pneumonia with hepatomegaly. -Procal 0.24 -No white count elevation seen -Sputum culture collected 05/21, preliminary gram stain shows rare gram positive cocci, pending further results -Blood cultures collected 05/20 preliminary results show gram positive cocci resembling staph in 1/2 bottles, second bottle still pending Rx -Continue with Rocephin and azithromycin -Prednisone 50 mg daily -DuoNebs as needed #NSTEMI type II - Mild elevation in troponin I 0.092. Patient denied any chest pain prior to AMS. Downtrended to 0.059. #Cardiomegaly Dx: -CT chest 05/21 showed enlarged heart Rx: -Echocardiogram ordered on 05/21, pending Respiratory #Acute hypercapnic hypoxic respiratory failure, improving #Intubated with mechanical ventilation DDx: Sepsis due to community-acquired pneumonia, morbid obesity, polypharmacy, cocci -Patient met 3/4 SIRS criteria with tachycardia tachypnea and fever he was on BiPAP when he presented with possible source of fracture pneumonia confirmed on chest x-ray. Dx: -Chest x-ray revealed bibasilar pneumonia which was also seen on CT chest. -ABGs showed pH 7.20, pCO2 77, pO2 67. -Patient is intubated with ET tube 8.5 at 23 cm with etomidate 40 and succinylcholine 100 by ED physician -Post chest x-ray was followed showed satisfactory ET tube position and OG pressures -CT chest 05/20 shows extensive bilateral pneumonia -ABG on 05/21 in the a.m. shows improvement of hypercapnea -Sputum culture collected 05/21, preliminary gram stain shows rare gram positive cocci, pending further results Rx -Intubated and mechanically ventilated with sedation -Sedation with propofol and fentanyl RASS of -2 -Levophed added if MAP drops below 65 -Continue with lung protective measures -Monitor Plateau pressures -Treat underlying pneumonia with ceftriaxone and azithromycin -Prednisone 50 mg daily -Follow up with cocci serology results GI and F/E/N #Hepatosplenomegaly #Transaminitis DDx: MASLD Dx: -As noted in abdomen ultrasound on 2021 -CT chest 05/21 identified hepatomegaly with fatty infiltration, irregular liver contour, and with splenomegaly -AST 53, ALT 49, and ALP 49 on admission to ICU, noted elevations in AST and ALT since 2021 #Intractable nausea and vomiting DDx: Viral gastroenteritis -Multiple episodes of diarrhoea and vomiting; multiple episodes without blood Rx -Supportive care - IV fluids [3 L bolus given x 1] -On antibiotics Rxx -Follow-up with stool studies #Abdominal boil -Patient has a boil on the pannus. Not draining. Rx -Closely monitor for drainage Renal #ELIECER, improving DDx: Dehydration due to intractable nausea and vomiting -Creatinine 1.2 baseline 0.8. -Creatinine improved to 1.0 on 05/21, continues to have good urine output Rx - IV fluid resuscitation - Avoid nephrotoxic agents - Renally dose medication - Strict intake and output #Polyuria DDx: Diabetes insipidus, diabetes mellitus, IV fluid hydration Dx: -Patient does take lithium at home and has been noted to frequently use restroom to urinate at home -Patient received multiple liters of fluid prior to ICU upgrade -Patient produced about 3.5 L of urine on 05/21 without use of any diuretic -UA positive for 3+ protein Rx: -Daily CMP -IVF hydration maintenance as patient urinates out significant volume -Urine creatinine & total protein ordered, pending Heme #Normocytic anemia Dx -Hemoglobin 12.2 Rx -PRBC if hemoglobin drop below 7 Rxx - Daily labs Endo #History of bnv-lmcfovu-jkpfymqmm type 2 diabetes -Patient is currently not on any medications. Dx: -A1c 5.5 Rx - Blood sugar checks Q6 hourly ID #Community-acquired pneumonia #GI infection likely viral gastroenteritis #Gram positive cocci 1/2 blood cultures Dx -Chest x-ray showed bibasilar pneumonia. -CT chest showed bilateral lower lobe pneumonia with hepatomegaly. -Procal 0.24 -No white count elevation seen -Sputum culture collected 05/21, preliminary gram stain shows rare gram positive cocci, pending further results -Blood cultures collected 05/20 preliminary results show gram positive cocci resembling staph in 1/2 bottles, second bottle still pending Rx -Continue with IV Rocephin [05/21?] and azithromycin [05/21?] Rxx - Follow-up blood cultures, sputum cultures and MRSA screen ICU health Maintenance: DVT prophylaxis: Lovenox 40 BID SQ (dosed for BMI) GI prophylaxis: Protonix 40 mg IV daily Diet: NPO Graves: PLACED Lines: Peripherals Drips: Propofol and fentanyl with RAAS -2 Vent: Volume control CODE STATUS: Full code Reason of hospitalization: Patient is upgraded to ICU for acute encephalopathy and acute hypoxic hypercapnic respiratory failure due to community-acquired pneumonia in setting of morbid obesity. Patient discussed with my attending, Dr. Hough, and senior resident Dr. Velasquez (PGY-2) Marcelino Weinstein, PGY-1
[2025-05-21] MEDS: ENOXAPARIN SOD INJ 40 MG/0.4 ML SYRINGE SC ×2 (11:14→21:08)
[2025-05-21 11:17] LABS: Base Excess 4 (-3-3); HCO3 29 mEq/L (20-26); Inspired Oxygen, FIO2 35 %; O2 Saturation 100 % (91-98); PCO2 46 mmHg (32.0-48.0); PO2 172 mmHg (83-108); pH, Arterial 7.41 (7.35-7.45)
[2025-05-21 11:31] LABS: Allen Test Performed/OK; Puncture Site Right Brachial
[2025-05-21 11:56] LABS: Lithium 1.24 mEq/L (1.00-1.20)
--- NOTE | 2025-05-21 13:29 | ECHO_ITS ---
Patient Info Name: Rupinder Weber Age: 20 years : 2005 Gender: Male Ht: 188 cm Wt: 158 kg BSA: 2.95 m2 BP: 134 / 69 mmHg HR: 76 bpm Exam Date: 05/22/2025 8:25 AM Admit Date: 05/21/2025 Site: [facility] Room Number: [id number] Patient Status: I Exam Type: CA echo doppler complete Senior Software Architect: Devorah Holley Ordering Physician: Marcelino Weinstein Study Info Indications Dilated heart on CT - Primary Location: S2SX Left Ventricular Outflow Tract Name Value Normal LVOT 2D LVOT Diameter 2.0 cm LVOT Doppler LVOT Peak Velocity 102 cm/s LVOT Mean Gradient 2 mmHg LVOT VTI 20 cm LVOT VTI/AV VTI Ratio 0.9 LVOT Stroke Volume 64 ml Pulmonic Valve Name Value Normal PV Doppler PV Peak Velocity 119 cm/s Mitral Valve Name Value Normal MV Doppler MV Decel [place] 535 cm/s2 MV PHT 52 ms MV Area (PHT) 4.2 cm2 4.0-5.0 MV Diastolic Function MV E Peak Velocity 96 cm/s MV A Peak Velocity 46 cm/s MV E/A 2.1 MV Annular TDI MV Septal e' Velocity 14.6 cm/s MV E/e' (Septal) 6.6 MV Lateral e' Velocity 12.5 cm/s MV E/e' (Lateral) 7.7 MV e' Average 13.55 cm/s MV E/e' (Average) 7.1 Tricuspid Valve Name Value Normal TV Regurgitation Doppler TR Peak Velocity 246 cm/s Estimated PAP/RSVP RA Pressure 8 mmHg <=5 PA Systolic Pressure 32 mmHg <36 RV Systolic Pressure 32 mmHg <36 Aortic Valve Name Value Normal AV 2D/MM AV Cusp Sep (MM) 1.6 cm AV Doppler AV Peak Velocity 130 cm/s AV Mean Gradient 4 mmHg AV VTI 24 cm AV Area (Cont Eq VTI) 2.7 cm2 >=3.0 AV Area (Cont Eq Clark) 2.5 cm2 AV DI (Clark) 0.78 AV Regurgitation 2D LVOT Area 3.1 cm2 Ventricles Name Value Normal LV Dimensions 2D/MM IVS Diastolic Thickness (2D) 1.0 cm 0.6-1.0 LVID Diastole (2D) 5.5 cm 4.2-5.8 LVIW Diastolic Thickness (2D) 0.9 cm 0.6-1.0 LVID Systole (2D) 3.7 cm 2.5-4.0 LVOT Diameter 2.0 cm LV Mass (2D Cubed) 199.32 g 88.00-224.00 LV Mass Index (2D Cubed) 68 g/m2 49-115 Relative Wall Thickness (2D) 0.33 <=0.42 IVS/LVIW Diastolic Thickness (2D) 1.11 0.00-1.50 LV Fractional Shortening/Ejection Fraction 2D/MM LV Fractional Shortening (2D) 33 % 25-43 LV EF (2D Teichholz) 61 % Atria Name Value Normal LA Dimensions LA Volume (4C A-L) 54 ml Left Ventricle Left ventricular chamber dimension is normal. Left ventricular systolic function is normal with visually estimated ejection fraction of 60-65%. There is normal geometry noted in the left ventricle. Left ventricular segmental wall motion is normal. There is normal diastolic function in the left ventricle. Right Ventricle Right ventricular chamber dimension is mildly enlarged. Right ventricular systolic function is normal. Left Atrium Left atrial chamber dimension is normal. Right Atrium Right atrial chamber dimension is normal. Aortic Valve The aortic valve is trileaflet. There is no aortic valve sclerosis. There is no aortic valve stenosis with a peak velocity of 130 cm/s, mean gradient of 4 mmHg, and aortic valve area of 2.7 cm2. There is no aortic valve regurgitation. Pulmonic Valve The pulmonic valve is normal. There is no pulmonic valve stenosis. There is no pulmonic regurgitation. Mitral Valve The mitral valve has normal leaflets. There is no mitral valve stenosis. There is no mitral valve regurgitation. Tricuspid Valve The tricuspid valve leaflets are normal. There is no tricuspid valve stenosis. There is trace tricuspid valve regurgitation. Mild pulmonary hypertension, estimated pulmonary arterial systolic pressure is 32 mmHg and systemic blood pressure of 134 mmHg in systole. Pericardium/Pleural The pericardium appears normal. There is no pericardial effusion. No pleural effusion visualized. Inferior Vena Cava Not well visualized inferior vena cava with >50% collapse upon inspiration consistent with normal right atrial pressure, 8 mmHg. Aorta The aortic measurements are indexed to age and body surface area. The aortic root at the sinus of Valsalva is not well visualized. The prox ascending aorta is not well visualized. Summary 1. Left ventricle size is upper limit of normal and systolic function is normal. Estimated ejection fraction is 60%. 2. Right ventricle chamber size is mildly enlarged and systolic function is normal. Estimated RVSP is 32 mmHg. 3. There is trace tricuspid valve regurgitation. 4. The left atrium is normal. The right atrium is normal. Report Signatures Finalized by Lida Gomes on 05/22/2025 12:41 PM
--- NOTE | 2025-05-21 13:51 | ESPR_ITS ---
Documentation for date of: 05/21/25 Subjective Subjective Interval history: This is a 20-year-old male admitted to the ICU overnight for acute hypoxic and hypercarbic respiratory failure. The patient was intubated in the small hours of the morning. Chest x-ray shows significant left-sided infiltrate and the chest CT shows bilateral consolidations with ground glass opacities as well as a fine multinodular appearance. Currently he is sedated and doing well on the vent. Good urinary output, no other acute events. Critical Care Note Critical care time (min.): 45 Exam Vital Signs Temp Pulse Resp BP Pulse Ox O2 Del Method O2 Flow Rate 99.0 F 106 H 16 147/82 H 95 Mechanical Ventilation 35 05/21/25 12:01 05/21/25 13:00 05/21/25 10:49 05/21/25 13:00 05/21/25 13:00 05/21/25 04:55 05/21/25 04:00 FiO2 35 05/21/25 12:00 Narrative Exam General-intubated, sedated, obese body habitus, no acute distress HEENT-normocephalic, atraumatic, sclera icteric, pupils equal and reactive, left sclera is injected, ET tube and OG tube in place Chest-lungs diminished throughout no crackles wheezes auscultated times exam, heart regular rhythmic, no gross murmurs auscultated on exam Abdomen-obese, soft, no apparent pain on palpation, no rebound or guarding Extremities-no significant edema in the upper extremities trace edema lower extremities, pulses palpable, no clubbing, no mottling, no apparent focal deficits Drips Propofol Fentanyl Vent AC/VC Physical Exam Completion Physical Exam Complete?: Yes 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 05/21/25 05:14 05/21/25 05:14 Labs: Laboratory Results - last 24 hr 05/20/25 05/20/25 05/20/25 22:58 23:00 23:25 WBC 10.6 RBC 4.30 L Hgb 13.0 L Hct 39.0 L MCV 91 MCH 30.2 MCHC 33.3 RDW Std Deviation 40.9 Plt Count 216 Neut % (Auto) 58 Lymph % (Auto) 20 [place] % (Auto) 16 H Eos % (Auto) 2 Baso % (Auto) 1 Neut # (Auto) 6.2 Lymph # (Auto) 2.1 [place] # (Auto) 1.7 H Eos # (Auto) 0.2 Baso # (Auto) 0.1 Immature Gran # (Auto) 0.34 H Absolute Nucleated RBC 0.00 Immature Gran % 3 H Nucleated RBC % 0 Puncture Site ABG pH ABG pCO2 ABG pO2 ABG HCO3 ABG O2 Saturation ABG Base Excess VBG pH 7.36 VBG pCO2 50 VBG pO2 50 VBG O2 Sat (Radha) 86 L VBG Base Excess 2 FiO2 Sodium 136 Potassium 3.8 Chloride 101 Carbon Dioxide 26.5 Anion Gap 9 BUN 7 L Creatinine 1.2 Estim Creat Clear Calc 146.7 eGFR > 60 BUN/Creatinine Ratio 6 L Glucose [address] Glu mg/dL 111 Hemoglobin A1c 5.5 Calculated Osmolality 270 L Lactic Acid 1.6 Calcium 9.4 Corrected Calcium 9.4 Phosphorus Magnesium Total Bilirubin 0.3 AST 61 H ALT 59 H Alkaline Phosphatase 57 Troponin I 0.092 H* Total Protein 7.9 Albumin 5.0 Globulin 2.9 Albumin/Globulin Ratio 1.7 Procalcitonin TSH 4.15 Ur Collection Type Catheter Urine Color Drk-Yellow A Urine Clarity Turbid A Urine pH 6.0 Ur Specific [place] 1.034 Urine Protein 3+ A Urine Glucose (UA) Negative Urine Ketones Trace Urine Blood Trace Urine Nitrite Negative Urine Bilirubin 1+ A Urine Urobilinogen (Auto) 2.0 Ur Leukocyte Esterase Negative Urine RBC 4 H Urine WBC 8 H Ur Squamous Epith Cells 0 Urine Bacteria None Hyaline Casts 7 H Urine Opiates Screen Negative Urine Fentanyl Screen Negative Ur Barbiturates Screen Negative U Amphetamin/Meth Scrn Negative U Benzodiazepines Scrn Negative [place] U Cocaine Metab Screen Negative U Marijuana (THC) Screen Negative Ethyl Alcohol < 3.0 HIV 1&2 Antibody Rapid Non-Reactive Influenza A (Rapid) Negative Influenza B (Rapid) Negative 05/21/25 05/21/25 05/21/25 03:36 05:14 07:36 WBC 9.3 RBC 4.02 L Hgb 12.2 L Hct 37.5 L MCV 93 MCH 30.3 MCHC 32.5 RDW Std Deviation 43.1 Plt Count 165 D Neut % (Auto) 66 Lymph % (Auto) 18 [place] % (Auto) 12 Eos % (Auto) 1 Baso % (Auto) 1 Neut # (Auto) 6.2 Lymph # (Auto) 1.7 [place] # (Auto) 1.1 H Eos # (Auto) 0.1 Baso # (Auto) 0.1 Immature Gran # (Auto) 0.17 H Absolute Nucleated RBC 0.00 Immature Gran % 2 H Nucleated RBC % 0 Puncture Site Right Radial Left Brachial ABG pH 7.20 L 7.44 D ABG pCO2 77 H* 40 D ABG pO2 67 L 240 H D ABG HCO3 30 H 27 H ABG O2 Saturation 90 L 101 H ABG Base Excess 0 3 VBG pH VBG pCO2 VBG pO2 VBG O2 Sat (Radha) VBG Base Excess FiO2 15 75 Sodium 139 Potassium 4.6 D Chloride 102 Carbon Dioxide 27.6 Anion Gap 9 BUN 5 L Creatinine 1.0 Estim Creat Clear Calc 184.7 eGFR > 60 BUN/Creatinine Ratio 5 L Glucose [address] Glu mg/dL Hemoglobin A1c Calculated Osmolality 274 L Lactic Acid Calcium 8.8 Corrected Calcium 8.8 Phosphorus 4.6 Magnesium 1.9 Total Bilirubin 0.3 AST 53 H ALT 49 Alkaline Phosphatase 49 Troponin I 0.059 H* Total Protein 6.8 Albumin 4.3 D Globulin 2.5 Albumin/Globulin Ratio 1.7 Procalcitonin 0.24 TSH Ur Collection Type Urine Color Urine Clarity Urine pH Ur Specific [place] Urine Protein Urine Glucose (UA) Urine Ketones Urine Blood Urine Nitrite Urine Bilirubin Urine Urobilinogen (Auto) Ur Leukocyte Esterase Urine RBC Urine WBC Ur Squamous Epith Cells Urine Bacteria Hyaline Casts Urine Opiates Screen Urine Fentanyl Screen Ur Barbiturates Screen U Amphetamin/Meth Scrn U Benzodiazepines Scrn [place] U Cocaine Metab Screen U Marijuana (THC) Screen Ethyl Alcohol HIV 1&2 Antibody Rapid Influenza A (Rapid) Influenza B (Rapid) 05/21/25 05/21/25 11:08 11:28 WBC RBC Hgb Hct MCV MCH MCHC RDW Std Deviation Plt Count Neut % (Auto) Lymph % (Auto) [place] % (Auto) Eos % (Auto) Baso % (Auto) Neut # (Auto) Lymph # (Auto) [place] # (Auto) Eos # (Auto) Baso # (Auto) Immature Gran # (Auto) Absolute Nucleated RBC Immature Gran % Nucleated RBC % Puncture Site Right Brachial ABG pH 7.41 ABG pCO2 46 ABG pO2 172 H D ABG HCO3 29 H ABG O2 Saturation 100 H ABG Base Excess 4 H VBG pH VBG pCO2 VBG pO2 VBG O2 Sat (Radha) VBG Base Excess FiO2 35 Sodium Potassium Chloride Carbon Dioxide Anion Gap BUN Creatinine Estim Creat Clear Calc eGFR BUN/Creatinine Ratio Glucose Estimated Ave Glu mg/dL Hemoglobin A1c Calculated Osmolality Lactic Acid Calcium Corrected Calcium Phosphorus Magnesium Total Bilirubin AST ALT Alkaline Phosphatase Troponin I Total Protein Albumin Globulin Albumin/Globulin Ratio Procalcitonin TSH Ur Collection Type Urine Color Urine Clarity Urine pH Ur Specific [place] Urine Protein Urine Glucose (UA) Urine Ketones Urine Blood Urine Nitrite Urine Bilirubin Urine Urobilinogen (Auto) Ur Leukocyte Esterase Urine RBC Urine WBC Ur Squamous Epith Cells Urine Bacteria Hyaline Casts Urine Opiates Screen Urine Fentanyl Screen Ur Barbiturates Screen U Amphetamin/Meth Scrn U Benzodiazepines Scrn [place] 1.24 H U Cocaine Metab Screen U Marijuana (THC) Screen Ethyl Alcohol HIV 1&2 Antibody Rapid Influenza A (Rapid) Influenza B (Rapid) Assessment & Plan Additional Assessment Additional Assessment: In summary this is a 18-year-old male admitted to the ICU for 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 History of schizophrenia CV Cardiomegaly-noted on CT and x-ray -Obtain formal echocardiogram Resp Acute hypoxic/hypercapnic respiratory failure-currently intubated, follow-up with ABG and chest x-ray -ABG results noted and vent changes made Community-acquired pneumonia-currently on ceftriaxone and azithromycin -Will start steroids for severe community-acquired pneumonia -Cultures are pending, cocci studies sent Renal Proteinuria-check random urine protein creatinine ratio GI Hepatosplenomegaly-this appears to have first been noted in 2021 - may have underlying MASLD - will need GI workup -Patient has had persistent transaminitis since 2021 GI proph- PPI Endo stable Heme DVT proph- lovenox 40mg q12 ID Question bacteremia-patient has 1 out of 2 bottles positive for GPC's which resembles staph taken on the . Given that it is 1 out of 2 this likely represents a contaminant. Will await further speciation case d/w ICU team labs, imaging, records reviewed ~45ccmin required for eval, exam, review, intervention, discussion and formulation of POC for this critically ill pt with resp failure at high risk for further and ongoing decompensation Provider Notation Provider Notation: Although this document has been carefully reviewed, there may still be some phonetic and other typographical errors. These errors are purely grammatical due to imperfections in the software program and should not be construed in any way to compromise the substance of the patient's medical care during this visit. Thank you for the opportunity and privilege in assisting you with this patient's care and management.
[2025-05-21 14:32] LABS: Cocci Serology, IgM Negative (Negative)
--- NOTE | 2025-05-21 16:07 | PC.SS ---
Update: Patient intubated, not sedated. No pressor support at current time. NPO. No current fever. Plan is to extubate patient tomorrow.
[2025-05-21] MEDS: fentaNYL 2,500 MCG/250 ML BAG 2,500 MCG/250 ML BAG 10 MCG IV (17:10)
--- NOTE | 2025-05-21 17:10 | XR_ITS ---
EXAMINATION: AP chest single view TECHNIQUE: AP portable semiupright chest single view Date and time: May 21, 2025, 1720 hours INDICATIONS: O2 desaturation, hypoxia, post intubation FINDINGS: Mild enlargement cardiac contour Perihilar left basilar opacity, edema and/or pneumonia Endotracheal tube tip 3.5 cm above belle Orogastric tube tip below the level of the film IMPRESSION: Again noted extensive bilateral perihilar and left basilar opacity most consistent with pneumonia, mild pulmonary edema not excluded
[2025-05-21] MEDS: MIDAZOLAM INJ 1 MG/ML VIAL 2 ML 4 MG IVP (17:12)
[2025-05-21] MEDS: ROCURONIUM INJ 10 MG/ML VIAL 10 ML 100 MG IV (17:29)
[2025-05-21 17:49] LABS: Base Excess 0 (-3-3); HCO3 27 mEq/L (20-26); Inspired Oxygen, FIO2 100 %; O2 Saturation 89 % (91-98); PCO2 56 mmHg (32.0-48.0); pH, Arterial 7.30 (7.35-7.45)
[2025-05-21 17:50] LABS: Allen Test Not Performed; PO2 61 mmHg (83-108); Puncture Site Left Radial
[2025-05-21 18:29] LABS: Allen Test Performed/OK; Base Excess 3 (-3-3); HCO3 30 mEq/L (20-26); PCO2 54 mmHg (32.0-48.0); PO2 107 mmHg (83-108); Puncture Site Right Radial; pH, Arterial 7.35 (7.35-7.45)
[2025-05-21 18:30] LABS: Inspired Oxygen, FIO2 70 %; O2 Saturation 100 % (91-98)
[2025-05-21] MEDS: PROPOFOL 1,000 MG IVPB 1,000 MG/100 ML VIAL 47.542 MG IV ×3 (19:07→23:37)
[2025-05-21] MEDS: RINGERS LACTATED 1000 ML 1,000 ML 250 ML IV (19:26)
[2025-05-21] MEDS: PRAZOSIN HCL 1 MG CAPSULE PO (21:08)
[2025-05-21] MEDS: cefTRIAXone/D5w 1gm IV premix 1 GM/50 ML BAG IV (21:08)
[2025-05-21 23:28] LABS: Creatinine,Random Urine 622 mg/dL (30-125); Protein Total, Random Urine > 250 mg/dL (1-14)
[2025-05-22] VITALS (42 sets, daily range): BP systolic 99–182; BP diastolic 48–98; PULSE 66–76; RESP 15–22; TEMP 36.1–36.4; O2SAT 94–100
[2025-05-22] MEDS: PROPOFOL 1,000 MG IVPB 1,000 MG/100 ML VIAL 47.542 MG IV ×4 (02:02→08:42)
[2025-05-22] MEDS: ALBUTEROL/IPRATROPIUM (Duoneb) RT SOL 3 ML NEBU INH ×6 (02:10→22:18)
[2025-05-22 05:09] LABS: Base Excess 3 (-3-3); HCO3 29 mEq/L (20-26); Inspired Oxygen, FIO2 50 %; PCO2 52 mmHg (32.0-48.0); PO2 92 mmHg (83-108); pH, Arterial 7.36 (7.35-7.45)
[2025-05-22 05:12] LABS: Allen Test Performed/OK; O2 Saturation 99 % (91-98); Puncture Site Left Radial
[2025-05-22 06:03] LABS: Basophils # (Auto) 0.1 Thou/mm3 (0.0-0.2); Basophils % (Auto) 1 % (0-2.5); Eosinophils # (Auto) 0.2 Thou/mm3 (0.0-0.5); Eosinophils % (Auto) 2 % (0-10); Hematocrit 36.2 % (41.0-53.0); Hemoglobin 11.9 g/dL (13.5-16.0); Immature Granulocytes Auto 0.85 Thou/mm3 (0.00-0.00); Lymphocytes # (Auto) 2.6 Thou/mm3 (1.0-4.8); Lymphocytes % (Auto) 24 % (10-50); Mean Corpuscular HGB Conc 32.9 g/dl (31.0-37.0); Mean Corpuscular Hemoglobin 31.1 pg (25.0-35.0); Mean Corpuscular Volume 95 fL (80-100); Monocytes # (Auto) 1.2 Thou/mm3 (0.0-0.8); Monocytes % (Auto) 11 % (0-12); Neutrophils # (Auto) 6.0 Thou/mm3 (1.8-7.7); Neutrophils % (Auto) 55 % (37-80); Nucleated Red Blood Cell # 0.00 Thou/mm3 (0.00-0.00); Nucleated Red Blood Cell % 0 /100 WBC (0); Platelet Count 210 Thou/mm3 (140-440); RDW Standard Deviation 45.1 fL (35.1-43.9); Red Blood Count 3.83 Miln/mm3 (4.50-5.90); White Blood Count 11.0 Thou/mm3 (3.8-10.6)
[2025-05-22 07:06] LABS: Glucose Estimated Average 117 mg/dL (80-131); Hemoglobin A1C 5.7 % Hgb (4.8-6.0)
--- NOTE | 2025-05-22 07:06 | XR_ITS ---
EXAMINATION: AP chest single view TECHNIQUE: AP portable upright chest single view Date and time: May 22, 2025, 0735 hours, comparison May 21, 2025 INDICATIONS: Hypoxic respiratory failure pneumonia FINDINGS: Bilateral perihilar left basilar pneumonia Orogastric tube in the stomach Endotracheal tube tip 4.8 cm above belle Mild enlargement cardiac contour with vascular congestion Prominent osteopenia Reduced inspiratory effort IMPRESSION: Significant bilateral perihilar left basilar pneumonia
[2025-05-22 07:53] LABS: Alanine Aminotransferase 37 U/L (10-49); Albumin, Serum 4.3 gm/dL (3.5-5.0); Albumin/Globulin Ratio 1.7 (1.2-2.2); Anion Gap 10 (7-16); Aspartate Amino Transferase 23 U/L (0-34); BUN/Creatinine Ratio 6 Ratio (12-20); Bilirubin,Total 0.3 mg/dL (0.3-1.2); Blood Urea Nitrogen 9 mg/dL (9-23); Calcium 9.3 mg/dL (8.3-10.6); Calcium (Corrected) 9.3 mg/dL (8.5-10.1); Carbon Dioxide 28.1 mMol/L (20.0-31.0); Chloride 106 mMol/L (98-107); Creatinine (Component) 1.6 mg/dL (0.6-1.3); Estimated Creatinine Clearance 115.4 mL/min (>60); Globulin 2.5 gm/dL (2.3-3.5); Glucose 84 mg/dL (74-106); Magnesium 2.0 mg/dL (1.6-2.6); Osmolality,Calculated 284 (275-295); Phosphorous 4.4 mg/dL (2.4-5.1); Potassium 3.7 mMol/L (3.4-5.1); Sodium 144 mMol/L (136-145); Total Protein 6.8 gm/dL (5.7-8.2); eGFR > 60 See Note
[2025-05-22] MEDS: VALPROIC ACID SYRUP 250 MG/5 ML UDC 500 MG NG ×2 (08:01→21:15)
[2025-05-22] MEDS: ENOXAPARIN SOD INJ 40 MG/0.4 ML SYRINGE SC ×2 (08:01→21:13)
[2025-05-22] MEDS: FAMOTIDINE INJ 10 MG/ML VIAL 2 ML 20 MG IVP ×2 (08:02→21:15)
[2025-05-22] MEDS: RINGERS LACTATED 1000 ML 1,000 ML 150 ML IV (08:03)
[2025-05-22] MEDS: NICOTINE PATCH 14 MG/24 HR PATCH.TD24 TOP (08:03)
[2025-05-22 09:25] LABS: Alkaline Phosphatase 47 U/L (46-116)
[2025-05-22 09:47] LABS: Cardiac Risk Estimate 8.6 RATIO (4.0-6.7); Cholesterol 112 mg/dL (132-200); HDL Cholesterol 13 mg/dL (40-60); LDL Cholesterol,Calculated 38 mg/dL (0-130); Triglycerides 305 mg/dL (30-150)
[2025-05-22] MEDS: LIDOCAINE HCL 1% 20 ML VIAL 5 ML TOP (10:25)
[2025-05-22] MEDS: Vancomycin Inj 1,000 MG, Vancomycin Inj 750 MG in SODIUM CHLORIDE 0.9% 500 ML 500 ML 250 MG IV ×2 (10:27→21:36)
[2025-05-22] MEDS: SENNOSIDES SYRUP 8.8 MG/5 ML UDC PO (10:28)
--- NOTE | 2025-05-22 10:34 | PD.INTPROC ---
PROCEDURES: Procedure Date / Time 05/22/25 1034 Bronchoscopy Bronscopy indication(s): diagnostic BAL Informed consent obtained from: surrogate Time out done and the following verified: correct patient, side and site, procedure and patient position Oxygen delivery: 100% FIO2 Trachea: mid appears normal and distal appears normal [place]: sharp in angle RUL & subsegmental branches: mucosa appears normal RML & subsegmental branches: inflammation RLL & subsegmental branches: inflammation GET & subsegmental branches: purulent secretions and inflammation LLL & subsegmental branches: purulent secretions and inflammation EBL: 0 Patient tolerated procedure: well Complications: No
--- NOTE | 2025-05-22 10:37 | PD.INTPROG ---
Documentation for date of: 05/22/25 Subjective Subjective Interval history: This is a 20-year-old male admitted to the ICU overnight for acute hypoxic and hypercarbic respiratory failure. The patient was intubated in the small hours of the morning. Chest x-ray shows significant left-sided infiltrate and the chest CT shows bilateral consolidations with ground glass opacities as well as a fine multinodular appearance. Currently he is sedated and doing well on the vent. Good urinary output, no other acute events. 05/22- yesterday evening became agitated and desatted. required manual bagging, 100%FiO2 and one round of NMB. changes made to vent with decrease in Vt and increase in PEEP was able to come down from 100% FiO2 to 80%. sedation increased, remained calm overnight, UOP yesterday during the day was increased however decreased overnight. afebrile Critical Care Note Critical care time (min.): 40 Exam Vital Signs Temp Pulse Resp BP Pulse Ox O2 Del Method O2 Flow Rate 97.1 F 68 20 99/51 L 96 Mechanical Ventilation 35 05/22/25 00:01 05/22/25 07:00 05/22/25 06:31 05/22/25 07:00 05/22/25 07:00 05/21/25 04:55 05/21/25 04:00 FiO2 35 05/22/25 07:38 Narrative Exam Gen- NAD, intubated, sedated, obese body habitus HEENT- NC/AT, mucosa hydrated, ETT/OGT in place, PERRL, sclera anicteric Chest- LCTAB, diminished, no crackles/wheeze heard, no increase in WOB Abd- s/nt/bs+ Ext- trace edema, pulses palp, no clubbing, no mottling, moves all 4 Vent AC VC Drips prop fent Physical Exam Completion Physical Exam Complete?: Yes 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[employer] Room Labs 05/22/25 05:17 05/22/25 05:17 Labs: Laboratory Results - last 24 hr 05/21/25 05/21/25 05/21/25 11:08 11:28 17:27 WBC RBC Hgb Hct MCV MCH MCHC RDW Std Deviation Plt Count Neut % (Auto) Lymph % (Auto) [place] % (Auto) Eos % (Auto) Baso % (Auto) Neut # (Auto) Lymph # (Auto) [place] # (Auto) Eos # (Auto) Baso # (Auto) Immature Gran # (Auto) Absolute Nucleated RBC Immature Gran % Nucleated RBC % Puncture Site Right Brachial Left Radial ABG pH 7.41 7.30 L D ABG pCO2 46 56 H D ABG pO2 172 H D 61 L D ABG HCO3 29 H 27 H ABG O2 Saturation 100 H 89 L ABG Base Excess 4 H 0 FiO2 35 100 Sodium Potassium Chloride Carbon Dioxide Anion Gap BUN Creatinine Estim Creat Clear Calc eGFR BUN/Creatinine Ratio Glucose Estimated Ave Glu mg/dL Hemoglobin A1c Calculated Osmolality Calcium Corrected Calcium Phosphorus Magnesium Total Bilirubin AST ALT Alkaline Phosphatase Total Protein Albumin Globulin Albumin/Globulin Ratio Triglycerides Cholesterol LDL Cholesterol, Calc HDL Cholesterol Cholesterol/HDL Ratio Ur Random Creatinine U Random Total Protein [place] 1.24 H [place] IgM Ab Negative 05/21/25 05/21/25 05/22/25 18:20 22:27 05:03 WBC RBC Hgb Hct MCV MCH MCHC RDW Std Deviation Plt Count Neut % (Auto) Lymph % (Auto) [place] % (Auto) Eos % (Auto) Baso % (Auto) Neut # (Auto) Lymph # (Auto) [place] # (Auto) Eos # (Auto) Baso # (Auto) Immature Gran # (Auto) Absolute Nucleated RBC Immature Gran % Nucleated RBC % Puncture Site Right Radial Left Radial ABG pH 7.35 7.36 ABG pCO2 54 H 52 H ABG pO2 107 D 92 ABG HCO3 30 H 29 H ABG O2 Saturation 100 H 99 H ABG Base Excess 3 3 FiO2 70 50 Sodium Potassium Chloride Carbon Dioxide Anion Gap BUN Creatinine Estim Creat Clear Calc eGFR BUN/Creatinine Ratio Glucose Estimated Ave Glu mg/dL Hemoglobin A1c Calculated Osmolality Calcium Corrected Calcium Phosphorus Magnesium Total Bilirubin AST ALT Alkaline Phosphatase Total Protein Albumin Globulin Albumin/Globulin Ratio Triglycerides Cholesterol LDL Cholesterol, Calc HDL Cholesterol Cholesterol/HDL Ratio Ur Random Creatinine 622 H U Random Total Protein > 250 H [place] Coccidioides IgM Ab 05/22/25 05:17 WBC 11.0 H RBC 3.83 L Hgb 11.9 L Hct 36.2 L MCV 95 MCH 31.1 MCHC 32.9 RDW Std Deviation 45.1 H Plt Count 210 D Neut % (Auto) 55 Lymph % (Auto) 24 [place] % (Auto) 11 Eos % (Auto) 2 Baso % (Auto) 1 Neut # (Auto) 6.0 Lymph # (Auto) 2.6 [place] # (Auto) 1.2 H Eos # (Auto) 0.2 Baso # (Auto) 0.1 Immature Gran # (Auto) 0.85 H Absolute Nucleated RBC 0.00 Immature Gran % 8 H Nucleated RBC % 0 Puncture Site ABG pH ABG pCO2 ABG pO2 ABG HCO3 ABG O2 Saturation ABG Base Excess FiO2 Sodium 144 Potassium 3.7 D Chloride 106 Carbon Dioxide 28.1 Anion Gap 10 BUN 9 Creatinine 1.6 H D Estim Creat Clear Calc 115.4 eGFR > 60 BUN/Creatinine Ratio 6 L Glucose [address] Glu mg/dL 117 Hemoglobin A1c 5.7 Calculated Osmolality 284 Calcium 9.3 Corrected Calcium 9.3 Phosphorus 4.4 Magnesium 2.0 Total Bilirubin 0.3 AST 23 ALT 37 Alkaline Phosphatase 47 Total Protein 6.8 Albumin 4.3 Globulin 2.5 Albumin/Globulin Ratio 1.7 Triglycerides 305 H Cholesterol 112 L LDL Cholesterol, Calc 38 HDL Cholesterol 13 L Cholesterol/HDL Ratio 8.6 H Ur Random Creatinine U Random Total Protein [place] Coccidioides IgM Ab Assessment & Plan Additional Assessment Additional Assessment: In summary this is a 18-year-old male admitted to the ICU for 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 hypoxic/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 History of schizophrenia - will resume home meds today CV Cardiomegaly-noted on CT and x-ray -Obtain formal echocardiogram Resp Acute hypoxic/hypercapnic respiratory failure-currently intubated, follow-up with ABG and chest x-ray -ABG results noted and vent changes made - on LTVV - PEEP decreased from 12 to 10 today - FiO2 now <50% - bronch performed today and showed extensive erythema and edema with narrowing of the airways on the L with some purulent discharge noted, there was some bleeding with lavage noted - permissive hypercapnea Community-acquired pneumonia-currently on ceftriaxone and azithromycin -on steroids for severe community-acquired pneumonia -Cultures are pending but prelim shows GPC - cocci studies sent Renal Proteinuria-check random urine protein creatinine ratio ELIECER- monitor UOP - urine in bag looks dark -> 1lt LR - avoid nephrotoxins - good UOP GI Hepatosplenomegaly-this appears to have first been noted in 2021 - may have underlying MASLD - will need GI workup -Patient has had persistent transaminitis since 2021 - check viral panel GI proph- PPI Endo Hypertriglyceridemia- started on gemfibrozil 600mg today Heme DVT proph- lovenox 40mg q12 Anemia- slow drift down, no active bleeding ID Question bacteremia- today GPC noted in 2/2 bottles - awaiting further identification - echo pending - repeat bcx today - MRSA swab is neg case d/w ICU team labs, imaging, records reviewed ~40ccmin required for eval, exam, review, intervention, discussion and formulation of POC for this critically ill pt with resp failure at high risk for further and ongoing decompensation Provider Notation Provider Notation: Although this document has been carefully reviewed, there may still be some phonetic and other typographical errors. These errors are purely grammatical due to imperfections in the software program and should not be construed in any way to compromise the substance of the patient's medical care during this visit. Thank you for the opportunity and privilege in assisting you with this patient's care and management.
[2025-05-22] MEDS: PROPOFOL 1,000 MG IVPB 1,000 MG/100 ML VIAL 42.788 MG IV (10:41)
--- NOTE | 2025-05-22 10:51 | ESPR_ITS ---
<Statement entered by Uday Navas MD - 05/22/25 15:48> I have reviewed the note and agree with the resident's assessment & plan with exceptions as below. I have personally reviewed labs, imaging, home meds/prior records, examined the patient, formulated and discussed management plan with my attending Patient was seen and examined bedside's morning. No acute night events. Patient remained on the same ventilator settings since yesterday and this morning ABG look fairly unchanged. At this time ordered chest x-ray which showed no major changes when compared to yesterday chest x-ray. Third bronchoscopy today at bedside with bronchial lavage to rule out any mucous plug, but no significant mucous was seen in the bronchoscopy. Patient did have a lot of mucosal erythema and edema with friable tissue therefore we will keep patient on ventilator for 1 more night. Will follow-up if patient does deteriorate patient may require further examination for possible ARDS. Otherwise we will continue with lung protective volumes for now and high PEEP. Patient did have also 3 L of urine output yesterday and today in the morning his urine output did decrease with increasing creatinine and therefore gave patient 1 L overnight and 1 additional liter of IV fluids this morning and then another liter in the afternoon. Patient's repeat renal function did show improvement in creatinine and patient's urine output did increase. Otherwise no other complaints at this time. Uday Navas PGY2 Disclaimer: Even though this this note was dictated by speech recognition and even though it was carefully revised there may still be minor errors in sharepoint specialist due to voice recognition software. Documentation for date of: 05/22/25 Subjective Subjective Interval history: This patient is a 20-year-old male with past medical history of [id number] type 2 diabetes, morbid obesity, schizoaffective disorder follows Dr. Gomes psychiatrist in [place] was admitted on floor on 05/21/2025 with chief complaint of 3 to 4 days of diarrhea associated with vomiting. Patient had multiple episodes without any blood. He denied any fever, chills, abdominal discomfort or any other complaint. Upon initial assessment per day team, GCS was 14 he was alert and oriented x 4 on BiPAP. He was able to open his eyes spontaneously. Father and boyfriend confirmed that patient had 3-4 episodes of vomiting and diarrhea after eating wings stop with his boyfriend. They had separate meals. He was appearing sick which prompted the father and boyfriend to bring him to the ED. Per patient's father and boyfriend patient had a large volume emesis. At baseline, he is generally very difficult to arouse and generally requires sternal rub and ultimately fall back asleep if not readily stood up upon waking. ED course: In the ED patient's blood pressure was 116/68, heart rate 87, RR 24 fever of 103 Fahrenheit. He was breathing on BIPAP. Labs revealed hemoglobin 13, white count 10.6, platelet 216. ABGs revealed pH 7.20, pCO2 77, pO2 67, bicarb 30. Chemistry panel revealed sodium 136, potassium 3.8, chloride 101, bicarb 26.5. Kidney function showed BUN 7 and creatinine 1.2. Blood glucose 113. A1c 5.5 lactic acid 1.6. AST 61 and ALT 59. Troponin I 0.092. TSH 4.15. Urinalysis was turbid with protein 3+, bilirubin 1+, RBC 4+, WBC 8+. U tox was negative. Influenza and HIV and COVID were negative. Imaging: Chest x-ray showed bibasilar pneumonia.CT chest showed bilateral lower lobe pneumonia with hepatomegaly. PMH: As above PSH: None Allergies: Codeine causes psychotic symptoms Home medications: Kirkman, olanzapine, prazosin, trazodone, clozapine SH: Patient does not work. Denies drinking alcohol. Vapes cigarettes every day. Remote history of psychedelics. Patient was admitted initially on floor for sepsis rule out most likely secondary to pneumonia versus possible GI infection and eventually upgraded to ICU due to acute hypoxic hypercapnic respiratory failure due to related to community-acquired pneumonia in the setting of morbid obesity. Interval History: 05/21/2025 Patient was admitted overnight. Throughout the morning, the patient was weaned off of sedation, however the patient was only briefly open eyes to voice and did not follow commands. The patient was kept on mechanical ventilation and sedation holiday was continued. Patient's morning ABG showed improvement in the patient's acidosis and hypercapnia, so respiratory rate was decreased. ICU team opted to keep the patient on AC/VC mode to decrease the patient's work of breathing as the patient's CT did appear to have significant pneumonia bilaterally. Sputum cultures are still pending, but preliminary Gram stain results did show rare gram-positive cocci. Will continue the patient on ceftriaxone and azithromycin. The patient was started on prednisone 50 mg daily in addition to his current antibiotic regimen as his community-acquired pneumonia would be classified as severe as the patient required intubation and mechanical ventilation. The mother at bedside asked ICU team to call her when the plan to extubate the patient as the patient has been known to have difficulties with anxiety. Later in the afternoon, the patient was still off of sedation and when the nurse went to turn the patient, the patient initially followed her commands, but then became agitated and trying to pull out his ET tube. The patient had O2 desaturation into the low 60s, so the patient was bagged and given 4 mg of Versed and resumed propofol and fentanyl drip. The patient calmed down and was given a one-time dose of rocuronium to paralyze the patient. Will have the night team follow-up with additional ABGs and will see if extubation is possible tomorrow. The patient was noted to have about 3.5 L of urine output throughout the day, to which the boyfriend at bedside does note that the patient frequently has to use the bathroom to urinate because he takes lithium. 05/22/2025 No acute events overnight. Patient was given 1 L of LR overnight and urine output did decrease significantly overnight. Total urine output over the last 24 hours was noted to be 3.8, however the last few hours overnight, urine output was noted to be about 25 cc/h. Patient was noted to be more hypotensive today compared to yesterday, so patient was given another liter of LR. Morning ABG did show pH of 7.36 and pCO2 of 52, which is likely secondary to the decrease in tidal volume as compared to yesterday morning. Patient is noted to have decrease lung sounds bilaterally, with right lung sounds more clear than left lung sounds. Resumed the patient's home olanzapine and we will plan to resume the patient's home lithium tomorrow. Since the patient did grow gram-positive cocci in both bottles of blood for blood culture collected on 05/20, with one of them resembling staph, and with increasing hypertension, antibiotic regimen was broadened to include vancomycin to cover for any possible MRSA. Additionally, repeat blood cultures were ordered to monitor the progress of the bacteremia. Repeat chest x-ray this morning continues to show significant bilateral perihilar and left basilar pneumonia. Bronchoscopy with bronchial lavage was performed, which identified erythematous and friable airways. Lavage wash was sent for culture, including fungal culture, and it was decided to keep the patient sedated and on mechanical ventilation for today given the findings on bronchoscopy, will plan for sedation holiday and possible extubation tomorrow. Will follow-up with renal panel ordered for later this afternoon and will order hepatitis panel as the patient does have elevated liver enzymes without a liver panel on file. Exam Vital Signs Temp Pulse Resp BP Pulse Ox O2 Del Method O2 Flow Rate 97.1 F 71 20 127/72 99 Mechanical Ventilation 35 05/22/25 00:01 05/22/25 10:42 05/22/25 10:42 05/22/25 10:39 05/22/25 10:42 05/21/25 04:55 05/21/25 04:00 FiO2 35 05/22/25 10:39 Narrative Exam GENERAL APPEARANCE: Patient is morbidly obese intubated and mechanically ventilated on sedation HEENT: NC, AT. MMM. EOMI, clear conjunctiva, oropharynx clear. NECK: Supple without lymphadenopathy. No stiffness or restricted ROM. HEART: Sinus tachycardia with and regular rhythm, normal S1/S2, no m/r/g LUNGS: Decreased lung sounds in bilateral lower lungs, worse on left lung compared to right. No crackles or wheezes are heard. ABDOMEN: Soft, nontender, increased abdominal girth with good bowel sounds heard. boil at pannus. BACK: No CVAT, no obvious deformity. EXTREMITIES: Without cyanosis, clubbing or edema. NEUROLOGICAL: Intubated and mech ventilated. Skin: Warm and dry without any rash. Psych: Unable to assess Objective Labs 05/22/25 05:17 05/22/25 05:17 Labs: Laboratory Results - last 24 hr 05/21/25 05/21/25 05/21/25 11:08 11:28 17:27 WBC RBC Hgb Hct MCV MCH MCHC RDW Std Deviation Plt Count Neut % (Auto) Lymph % (Auto) Polk % (Auto) Eos % (Auto) Baso % (Auto) Neut # (Auto) Lymph # (Auto) Polk # (Auto) Eos # (Auto) Baso # (Auto) Immature Gran # (Auto) Absolute Nucleated RBC Immature Gran % Nucleated RBC % Puncture Site Right Brachial Left Radial ABG pH 7.41 7.30 L D ABG pCO2 46 56 H D ABG pO2 172 H D 61 L D ABG HCO3 29 H 27 H ABG O2 Saturation 100 H 89 L ABG Base Excess 4 H 0 FiO2 35 100 Sodium Potassium Chloride Carbon Dioxide Anion Gap BUN Creatinine Estim Creat Clear Calc eGFR BUN/Creatinine Ratio Glucose Estimated Ave Glu mg/dL Hemoglobin A1c Calculated Osmolality Calcium Corrected Calcium Phosphorus Magnesium Total Bilirubin AST ALT Alkaline Phosphatase Total Protein Albumin Globulin Albumin/Globulin Ratio Triglycerides Cholesterol LDL Cholesterol, Calc HDL Cholesterol Cholesterol/HDL Ratio Ur Random Creatinine U Random Total Protein Kirkman 1.24 H Coccidioides IgM Ab Negative 05/21/25 05/21/25 05/22/25 18:20 22:27 05:03 WBC RBC Hgb Hct MCV MCH MCHC RDW Std Deviation Plt Count Neut % (Auto) Lymph % (Auto) Polk % (Auto) Eos % (Auto) Baso % (Auto) Neut # (Auto) Lymph # (Auto) Polk # (Auto) Eos # (Auto) Baso # (Auto) Immature Gran # (Auto) Absolute Nucleated RBC Immature Gran % Nucleated RBC % Puncture Site Right Radial Left Radial ABG pH 7.35 7.36 ABG pCO2 54 H 52 H ABG pO2 107 D 92 ABG HCO3 30 H 29 H ABG O2 Saturation 100 H 99 H ABG Base Excess 3 3 FiO2 70 50 Sodium Potassium Chloride Carbon Dioxide Anion Gap BUN Creatinine Estim Creat Clear Calc eGFR BUN/Creatinine Ratio Glucose Estimated Ave Glu mg/dL Hemoglobin A1c Calculated Osmolality Calcium Corrected Calcium Phosphorus Magnesium Total Bilirubin AST ALT Alkaline Phosphatase Total Protein Albumin Globulin Albumin/Globulin Ratio Triglycerides Cholesterol LDL Cholesterol, Calc HDL Cholesterol Cholesterol/HDL Ratio Ur Random Creatinine 622 H U Random Total Protein > 250 H Kirkman Coccidioides IgM Ab 05/22/25 05:17 WBC 11.0 H RBC 3.83 L Hgb 11.9 L Hct 36.2 L MCV 95 MCH 31.1 MCHC 32.9 RDW Std Deviation 45.1 H Plt Count 210 D Neut % (Auto) 55 Lymph % (Auto) 24 Polk % (Auto) 11 Eos % (Auto) 2 Baso % (Auto) 1 Neut # (Auto) 6.0 Lymph # (Auto) 2.6 Polk # (Auto) 1.2 H Eos # (Auto) 0.2 Baso # (Auto) 0.1 Immature Gran # (Auto) 0.85 H Absolute Nucleated RBC 0.00 Immature Gran % 8 H Nucleated RBC % 0 Puncture Site ABG pH ABG pCO2 ABG pO2 ABG HCO3 ABG O2 Saturation ABG Base Excess FiO2 Sodium 144 Potassium 3.7 D Chloride 106 Carbon Dioxide 28.1 Anion Gap 10 BUN 9 Creatinine 1.6 H D Estim Creat Clear Calc 115.4 eGFR > 60 BUN/Creatinine Ratio 6 L Glucose [address] Glu mg/dL 117 Hemoglobin A1c 5.7 Calculated Osmolality 284 Calcium 9.3 Corrected Calcium 9.3 Phosphorus 4.4 Magnesium 2.0 Total Bilirubin 0.3 AST 23 ALT 37 Alkaline Phosphatase 47 Total Protein 6.8 Albumin 4.3 Globulin 2.5 Albumin/Globulin Ratio 1.7 Triglycerides 305 H Cholesterol 112 L LDL Cholesterol, Calc 38 HDL Cholesterol 13 L Cholesterol/HDL Ratio 8.6 H Ur Random Creatinine U Random Total Protein Kirkman Coccidioides IgM Ab ABG Interpretation ABG results: 05/20/25 05/21/25 05/21/25 22:58 03:36 07:36 ABG pH 7.20 L 7.44 D ABG pCO2 77 H* 40 D ABG pO2 67 L 240 H D ABG HCO3 30 H 27 H ABG O2 Saturation 90 L 101 H ABG Base Excess 0 3 VBG pH 7.36 VBG pCO2 50 VBG pO2 50 VBG Base Excess 2 05/21/25 05/21/25 05/21/25 11:08 17:27 18:20 ABG pH 7.41 7.30 L D 7.35 ABG pCO2 46 56 H D 54 H ABG pO2 172 H D 61 L D 107 D ABG HCO3 29 H 27 H 30 H ABG O2 Saturation 100 H 89 L 100 H ABG Base Excess 4 H 0 3 VBG pH VBG pCO2 VBG pO2 VBG Base Excess 05/22/25 05:03 ABG pH 7.36 ABG pCO2 52 H ABG pO2 92 ABG HCO3 29 H ABG O2 Saturation 99 H ABG Base Excess 3 VBG pH VBG pCO2 VBG pO2 VBG Base Excess Quality Measures Quality Measures sepsis Current suspected stage: sepsis Possible source: pulmonary Blood cultures ordered: yes Antibiotic ordered: Yes Assessment & Plan Assessment Current Active Medications: Generic Name Dose Route Start Last Admin Trade Name Freq PRN Reason Stop Dose Admin Acetaminophen 650 mg 05/21/25 00:37 Acetaminophen 325 Mg Tablet PO 06/20/25 00:36 Q6H PRN Fever >100.4 or pain 1-3 Hydrocodone Bitart/Acetaminophen 1 tab 05/21/25 00:42 Hydrocodone/Apap 5/325 Tablet PO 05/26/25 00:41 Q4HR PRN PAIN SCALE 4-6 (Moderate Albuterol/Ipratropium 3 ml 05/21/25 03:00 05/22/25 10:43 Albuterol/Ipratropium (Duoneb) Rt Jannie 3 Ml Nebu INH 06/20/25 02:59 3 ml Q4HRRT ANANDA Administration Enoxaparin Sodium 40 mg 05/21/25 10:45 05/22/25 08:01 Enoxaparin Sod Inj 40 Mg/0.4 Ml Syringe SC 06/04/25 10:44 40 mg BID ANANDA Administration Famotidine 20 mg 05/21/25 09:00 05/22/25 08:02 Famotidine Inj 10 Mg/Ml Vial 2 Ml IVP 06/20/25 08:59 20 mg Q12HR ANANDA Administration Ceftriaxone Sodium/Dextrose 1 gm in 50 mls @ 100 mls/hr 05/21/25 21:00 05/21/25 21:08 Rocephin/D5w 1gm Iv Premix IV 05/28/25 20:59 100 mls/hr QDAY@2100 ANANDA Administration Azithromycin 500 mg/ Sodium 250 mls @ 250 mls/hr 05/21/25 21:00 05/21/25 21:09 Chloride IV 05/28/25 20:59 250 mls/hr QDAY@2100 ANANDA Administration Norepinephrine/Dextrose 8 mg in 250 mls @ 14.857 mls/hr 05/21/25 04:20 Levophed In D5w 8mg/250ml IV 06/20/25 04:19 .[id number] PRN PER PROTOCOL Protocol 0.05 MCG/KG/MIN Fentanyl Citrate 2,500 mcg in 250 mls @ 2.5 mls/hr 05/21/25 04:32 05/22/25 10:00 Sublimaze Inj 2,500 Mcg/250 Ml Bag IV 05/26/25 04:19 1,000 mcg/hr .Q24H PRN 100 mls/hr PER PROTOCOL Titration Protocol 25 MCG/HR Propofol 1,000 mg in 100 mls @ 4.754 mls/hr 05/21/25 17:09 05/22/25 10:41 Diprivan Ivpb IV 06/20/25 17:08 45 mcg/kg/min .Q21H3M PRN 42.788 mls/hr PER PROTOCOL Administration Protocol 5 MCG/KG/MIN Lactated Ringer's 1,000 mls @ 250 mls/hr 05/22/25 08:14 05/22/25 09:37 Lactated Ringers IV 05/22/25 11:16 Not Given .Q4H ONE Vancomycin HCl 1,000 mg/ 500 mls @ 250 mls/hr 05/22/25 10:00 05/22/25 10:27 Vancomycin HCl 750 mg/ Sodium IV 05/29/25 09:59 250 mls/hr Chloride BID@1000,2200 ANANDA Administration Protocol Lactated Ringer's 1,000 mls @ 999 mls/hr 05/22/25 10:51 Lactated Ringers IV 05/22/25 11:51 .Q1H1M ONE Lidocaine HCl 5 ml 05/22/25 11:00 05/22/25 10:25 Lidocaine Hcl 1% 20 Ml Vial TOP 05/22/25 11:01 5 ml X1 ANANDA Administration Protocol Kirkman Carbonate 100 mg 05/23/25 09:00 Kirkman Carb 150 Mg Capsule PO 06/22/25 08:59 QDAY ANANDA Nicotine 14 mg 05/21/25 09:00 05/22/25 08:03 Nicotine Patch 14 Mg/24 Hr Patch.Td24 TOP 06/20/25 08:59 14 mg QDAY ANANDA Administration Olanzapine 20 mg 05/21/25 09:00 Olanzapine 5 Mg Tablet PO 06/20/25 08:59 QDAY ANANDA Ondansetron HCl 4 mg 05/21/25 00:37 Ondansetron Inj 2 Mg/Ml Inj 2 Ml IVP 06/20/25 00:36 Q6H PRN NAUSEA OR VOMITING Protocol Pharmacy Consult 1 each 05/22/25 09:00 Vancomycin Pharmacy To Dose 1 Each Each IV 06/21/25 08:59 QDAY PRN PNEUMONIA Prazosin HCl 1 mg 05/21/25 21:00 05/21/25 21:08 Prazosin Hcl 1 Mg Capsule PO 06/20/25 20:59 1 mg HS ANANDA Administration Prednisone 50 mg 05/21/25 10:45 05/22/25 08:01 Prednisone 20 Mg Tablet NG 06/20/25 10:44 50 mg QDAY ANANDA Administration Sennosides 8.8 mg 05/22/25 09:00 05/22/25 10:28 Sennosides Syrup 8.8 Mg/5 Ml Udc PO 06/21/25 08:59 8.8 mg QDAY ANANDA Administration Protocol Valproic Acid 500 mg 05/21/25 09:00 05/22/25 08:01 Valproic Acid Syrup 250 Mg/5 Ml Udc NG 06/20/25 08:59 500 mg BID ANANDA Administration Plan This patient is a 20-year-old male with past medical history of fns-urvivho-kcgkgaqdz type 2 diabetes, morbid obesity, schizoaffective disorder follows Dr. Gomes psychiatrist in [place] was admitted on floor on 05/21/2025 with chief complaint of 3 to 4 days of diarrhea associated with vomiting.Patient was admitted initially on floor for sepsis rule out most likely secondary to pneumonia versus possible GI infection and eventually upgraded to ICU due to acute hypoxic hypercapnic respiratory failure due to related to community- acquired pneumonia in the setting of morbid obesity. Neurology #Acute encephalopathy DDx: Hypercapnia, acidosis, polypharmacy on multiple psych meds -U tox was negative. Etoh negative Rx -Intubated and mechanically ventilated -Anticipate correction of acidosis with ventilator -Currently holding psych meds -Treating with antibiotics #History of schizoaffective disorder Dx - Patient has a longstanding history of schizoaffective disorder. Follows psychiatrist, Dr. Gomes in [place] who sees patients biweekly on Zoom and monthly in person. - Patient lithium levels noted to be 1.24 on 05/21 Rx -Currently holding lithium 150 mg andrew and trazodone 50 mg at bedtime and clozapine -Continue with prazosin 1 mg at bedtime -Continue valproic acid -Resumed home olanzapine 20 mg daily -Will plan to resume home lithium at 100 mg daily #History of vaping -Patient currently vapes all day. Rx -Nicotine patch Cardiovascular #Hypotension - Patient met 3/4 SIRS criteria with tachycardia tachypnea and fever with possible source of infection pneumonia versus GI infection. - Patient was placed on BiPAP in ED to help with work of breathing, eventually intubated DDx: Distributive, hypovolemic (likely distributive given active bacteremia, but also possible hypovolemia as patient did have >3.5L urine output on 05/21) Dx: -Chest x-ray showed bibasilar pneumonia. -CT chest showed bilateral lower lobe pneumonia with hepatomegaly. -Procal 0.24 -Patient noted to become hypotensive overnight from 05/21-05/22, not yet requiring vasopressors to maintain MAP >65 -Sputum culture collected 05/21, preliminary gram stain shows rare gram positive cocci, pending further results -Blood cultures collected 05/20 preliminary results show gram positive cocci resembling staph in 1/2 bottles, second bottle positive for gram positive cocci -Bronchial lavage cultures collected 05/22, pending Rx -Continue with Rocephin and azithromycin -Broadened antibiotics to include vancomycin -Prednisone 50 mg daily -DuoNebs as needed -Fluid resuscitation as tolerated #NSTEMI type II - Mild elevation in troponin I 0.092. Patient denied any chest pain prior to AMS. Downtrended to 0.059. #Cardiomegaly Dx: -CT chest 05/21 showed enlarged heart Rx: -Echocardiogram ordered on 05/21, pending Respiratory #Acute hypercapnic hypoxic respiratory failure, improving #Intubated with mechanical ventilation #s/p bronchoscopy 05/22 DDx: Community-acquired pneumonia, morbid obesity, polypharmacy, cocci -Patient met 3/4 SIRS criteria with tachycardia tachypnea and fever he was on BiPAP when he presented with possible source of fracture pneumonia confirmed on chest x-ray. Dx: -Chest x-ray revealed bibasilar pneumonia which was also seen on CT chest. -ABGs showed pH 7.20, pCO2 77, pO2 67. -Patient is intubated with ET tube 8.5 at 23 cm with etomidate 40 and succinylcholine 100 by ED physician -Post chest x-ray was followed showed satisfactory ET tube position and OG pressures -CT chest 05/20 shows extensive bilateral pneumonia -ABG on 05/21 in the a.m. shows improvement of hypercapnea -Cocci IgM negative -Sputum culture collected 05/21, preliminary gram stain shows rare gram positive cocci, pending further results -Blood cultures collected 05/20 preliminary results show gram positive cocci resembling staph in 1/2 bottles, second bottle positive for gram positive cocci -s/p bronchoscopy 05/22, which found erythematous and friable airways without clear obstructions -Bronchial lavage cultures collected 05/22, pending Rx -Intubated and mechanically ventilated with sedation -Sedation with propofol and fentanyl RASS of -2 -Levophed added if MAP drops below 65 -Continue with lung protective measures -Monitor Plateau pressures -Treat underlying pneumonia with ceftriaxone, azithromycin, and vancomycin -Prednisone 50 mg daily -Plan for sedation holiday and possible SBP 05/23 given findings on 05/22 bronchoscopy GI and F/E/N #Hepatosplenomegaly #Transaminitis DDx: MASLD Dx: -As noted in abdomen ultrasound on 2021 -CT chest 05/21 identified hepatomegaly with fatty infiltration, irregular liver contour, and with splenomegaly -AST 53, ALT 49, and ALP 49 on admission to ICU, noted elevations in AST and ALT since 2021 -Patient does take olanzapine at home, which is noted to increase liver enzymes Rx: -Hepatitis panel ordered, pending #Intractable nausea and vomiting DDx: Viral gastroenteritis -Multiple episodes of diarrhoea and vomiting; multiple episodes without blood Rx -Supportive care - IV fluids [3 L bolus given x 1] -On antibiotics Rxx -Follow-up with stool studies #Abdominal boil -Patient has a boil on the pannus. Not draining. Rx -Closely monitor for drainage Renal #ELIECER DDx: Septic ELIECER, prerenal -Creatinine 1.2 baseline 0.8 on admission to ICU -Creatinine improved to 1.0 on 05/21, continues to have good urine output -> 05/22 creatinine worsened to 1.6 and urine output significantly decreased 05/21- 05/22 overnight Rx - IV fluid resuscitation - Avoid nephrotoxic agents - Renally dose medication - Strict intake and output #Proteinuria DDx: Nephrotic syndrome, nephritic syndrome Dx: -Patient noted to have UA positive for 3+ protein on admission to ICU -Urine creatinine collected 05/21 noted to be 622 and urine total protein noted to be >250 Rx: -Asked lab for exact value of urine total protein, will use to calculate urine protein/creatinine ration, if >3.5 g/day, then suggestive of nephrotic syndrome #Polyuria DDx: Diabetes insipidus, diabetes mellitus, IV fluid hydration Dx: -Patient does take lithium at home and has been noted to frequently use restroom to urinate at home -Patient received multiple liters of fluid prior to ICU upgrade -Patient produced about 3.5 L of urine on 05/21 without use of any diuretic -UA positive for 3+ protein Rx: -Daily CMP -IVF hydration maintenance as patient urinates out significant volume Heme #Normocytic anemia Dx -Hemoglobin 12.2 Rx -PRBC if hemoglobin drop below 7 Rxx - Daily labs Endo #History of sjm-zfqqaks-elhktaalt type 2 diabetes -Patient is currently not on any medications. Dx: -A1c 5.5 Rx - Blood sugar checks Q6 hourly ID #Community-acquired pneumonia #Gram positive cocci 2/2 blood cultures Dx -Chest x-ray showed bibasilar pneumonia. -CT chest showed bilateral lower lobe pneumonia with hepatomegaly. -Procal 0.24 -No white count elevation seen -Sputum culture collected 05/21, preliminary gram stain shows rare gram positive cocci, pending further results -Blood cultures collected 05/20 preliminary results show gram positive cocci resembling staph in 1/2 bottles, second bottle still grows gram positive cocci -Bronchial lavage culture ordered, pending Rx -Continue with IV Rocephin [05/21?] and azithromycin [05/21?] -Vancomycin to cover for possible MRSA [05/22-] Rxx - Follow-up blood cultures, sputum cultures and MRSA screen ICU health Maintenance: DVT prophylaxis: Lovenox 40 BID SQ (dosed for BMI) GI prophylaxis: Protonix 40 mg IV daily Diet: NPO Graves: PLACED Lines: Peripherals Drips: Propofol and fentanyl with RAAS -2 Vent: Volume control CODE STATUS: Full code Reason of hospitalization: Patient is upgraded to ICU for acute encephalopathy and acute hypoxic hypercapnic respiratory failure due to community-acquired pneumonia in setting of morbid obesity. Patient discussed with my attending, Dr. Hough, and senior resident Dr. Velasquez (PGY-2) Marcelino Weinstein, PGY-1
[2025-05-22] MEDS: RINGERS LACTATED 1000 ML 1,000 ML 999 ML IV (11:16)
[2025-05-22] MEDS: PROPOFOL 1,000 MG IVPB 1,000 MG/100 ML VIAL 33.28 MG IV (13:05)
[2025-05-22 15:00] LABS: Albumin, Serum 4.3 gm/dL (3.5-5.0); Anion Gap 9 (7-16); BUN/Creatinine Ratio 8 Ratio (12-20); Blood Urea Nitrogen 8 mg/dL (9-23); Calcium 9.2 mg/dL (8.3-10.6); Calcium (Corrected) 9.2 mg/dL (8.5-10.1); Carbon Dioxide 27.7 mMol/L (20.0-31.0); Chloride 108 mMol/L (98-107); Creatinine (Component) 1.0 mg/dL (0.6-1.3); Estimated Creatinine Clearance 184.7 mL/min (>60); Glucose 105 mg/dL (74-106); Osmolality,Calculated 287 (275-295); Phosphorous 3.3 mg/dL (2.4-5.1); Potassium 4.3 mMol/L (3.4-5.1); Sodium 145 mMol/L (136-145); eGFR > 60 See Note
[2025-05-22 15:54] LABS: Hepatitis A Antibody IgM Non Reactive (Non React); Hepatitis B Core Antibody IgM Non Reactive (Non React); Hepatitis B Surface Antigen Non Reactive (Non React); Hepatitis C Antibody Non Reactive (Non React)
--- NOTE | 2025-05-22 16:24 | PC.SS ---
TECHNOLOGIST DEVELOPMENT conducted bedside contact with the patient conduct initial assessment and to discuss discharge planning.? At bedside with patient was partner, Terry Briones.? Patient currently admitted to ICU on mechanical ventilation.? Partner provided information for assessment and discharge planning.? Patient resides at home with parents.? Patient does not utilize DME to assist with ambulation. Patient does not utilize home oxygen.? Patient is able to complete ADL?s independently. ?Patient?s medical surrogate decision maker is mother, Aria Weber.? Patient?s PCP is Dr. Byrd.? The patient?s psychiatrist is Alis Mckeon. ?The patient does not participate with dialysis.? Discharge plan is for the patient to return home at the time of discharge.? Family will provide transportation on behalf of the patient.? No discharge needs identified at current time.? No further intervention required at this time, social science teacher will be available to address any further concerns.? Next of Kin: Aria Weber D/C Plan: Home
[2025-05-22] MEDS: PROPOFOL 1,000 MG IVPB 1,000 MG/100 ML VIAL 23.771 MG IV (16:42)
[2025-05-22 17:11] LABS: Creatinine,Random Urine 31 mg/dL (30-125); Protein Total, Random Urine 9 mg/dL (1-14)
[2025-05-22] MEDS: fentaNYL 2,500 MCG/250 ML BAG 2,500 MCG/250 ML BAG IV ×2 (17:57→18:45)
[2025-05-22] MEDS: POLYETHYLENE GLYCOL 17 GM PACKET PO (17:59)
[2025-05-22 18:47] LABS: Base Excess 4 (-3-3); HCO3 30 mEq/L (20-26); Inspired Oxygen, FIO2 45 %; O2 Saturation 91 % (91-98); PCO2 53 mmHg (32.0-48.0); PO2 61 mmHg (83-108); pH, Arterial 7.37 (7.35-7.45)
[2025-05-22 18:48] LABS: Allen Test Performed/OK; Puncture Site Left Radial
[2025-05-22] MEDS: PROPOFOL 1,000 MG IVPB 1,000 MG/100 ML VIAL 19.017 MG IV (21:00)
[2025-05-22] MEDS: AZITHROMYCIN INJ 500 MG in SODIUM CHLORIDE 0.9% 250 ML 250 ML 250 MG IV (21:12)
[2025-05-22] MEDS: cefTRIAXone/D5w 1gm IV premix 1 GM/50 ML BAG IV (21:13)
[2025-05-22] MEDS: PRAZOSIN HCL 1 MG CAPSULE PO (21:14)
[2025-05-23] VITALS (47 sets, daily range): BP systolic 133–233; BP diastolic 74–194; PULSE 71–113; RESP 0–37; TEMP 36.1–37.7; O2SAT 89–100; BMI 44.9
[2025-05-23] MEDS: PROPOFOL 1,000 MG IVPB 1,000 MG/100 ML VIAL 19.017 MG IV (01:02)
[2025-05-23] MEDS: ALBUTEROL/IPRATROPIUM (Duoneb) RT SOL 3 ML NEBU INH ×6 (02:26→22:06)
--- NOTE | 2025-05-23 05:00 | XR_ITS ---
EXAMINATION: AP chest single view TECHNIQUE: AP view portable semiupright chest single view Date and time: May 23, 2025, 0543 hours, comparison May 22, 2025 INDICATIONS: Hypoxic respiratory failure, pneumonia ARDS FINDINGS: Mild enlargement cardiac contour Bilateral perihilar and left basilar pneumonia Mild associated heart failure with prominent vascular congestion Tracheal tube tip 3.3 cm above belle Orogastric tube is in the stomach, the tip is below the level of the film Prominent osteopenia IMPRESSION: Significant bilateral pneumonia Mild associated heart failure
[2025-05-23 05:23] LABS: Base Excess 5 (-3-3); HCO3 31 mEq/L (20-26); Inspired Oxygen, FIO2 45 %; PCO2 50 mmHg (32.0-48.0); PO2 82 mmHg (83-108); pH, Arterial 7.40 (7.35-7.45)
[2025-05-23 05:26] LABS: Allen Test Performed/OK; O2 Saturation 99 % (91-98); Puncture Site Right Radial
[2025-05-23] MEDS: PROPOFOL 1,000 MG IVPB 1,000 MG/100 ML VIAL 28.525 MG IV (07:05)
[2025-05-23 07:32] LABS: Basophils # (Auto) 0.1 Thou/mm3 (0.0-0.2); Basophils % (Auto) 1 % (0-2.5); Eosinophils # (Auto) 0.1 Thou/mm3 (0.0-0.5); Eosinophils % (Auto) 1 % (0-10); Hematocrit 36.0 % (41.0-53.0); Hemoglobin 11.6 g/dL (13.5-16.0); Immature Granulocytes Auto 1.18 Thou/mm3 (0.00-0.00); Lymphocytes # (Auto) 2.0 Thou/mm3 (1.0-4.8); Lymphocytes % (Auto) 19 % (10-50); Mean Corpuscular HGB Conc 32.2 g/dl (31.0-37.0); Mean Corpuscular Hemoglobin 30.4 pg (25.0-35.0); Mean Corpuscular Volume 94 fL (80-100); Monocytes # (Auto) 0.7 Thou/mm3 (0.0-0.8); Monocytes % (Auto) 6 % (0-12); Neutrophils # (Auto) 6.1 Thou/mm3 (1.8-7.7); Neutrophils % (Auto) 60 % (37-80); Nucleated Red Blood Cell # 0.00 Thou/mm3 (0.00-0.00); Nucleated Red Blood Cell % 0 /100 WBC (0); Platelet Count 219 Thou/mm3 (140-440); RDW Standard Deviation 45.3 fL (35.1-43.9); Red Blood Count 3.82 Miln/mm3 (4.50-5.90); White Blood Count 10.2 Thou/mm3 (3.8-10.6)
[2025-05-23 07:41] LABS: Alanine Aminotransferase 32 U/L (10-49); Albumin, Serum 4.1 gm/dL (3.5-5.0); Albumin/Globulin Ratio 1.5 (1.2-2.2); Alkaline Phosphatase 49 U/L (46-116); Anion Gap 10 (7-16); Aspartate Amino Transferase 51 U/L (0-34); BUN/Creatinine Ratio 10 Ratio (12-20); Bilirubin,Total 0.2 mg/dL (0.3-1.2); Blood Urea Nitrogen 8 mg/dL (9-23); Calcium 9.4 mg/dL (8.3-10.6); Calcium (Corrected) 9.4 mg/dL (8.5-10.1); Carbon Dioxide 31.2 mMol/L (20.0-31.0); Chloride 110 mMol/L (98-107); Creatinine (Component) 0.8 mg/dL (0.6-1.3); Estimated Creatinine Clearance 231.2 mL/min (>60); Globulin 2.8 gm/dL (2.3-3.5); Glucose 103 mg/dL (74-106); Magnesium 2.2 mg/dL (1.6-2.6); Osmolality,Calculated 298 (275-295); Phosphorous 3.6 mg/dL (2.4-5.1); Potassium 4.4 mMol/L (3.4-5.1); Sodium 151 mMol/L (136-145); Total Protein 6.9 gm/dL (5.7-8.2); Vancomycin,Random 7.2 mcg/mL; eGFR > 60 See Note
[2025-05-23] MEDS: VALPROIC ACID SYRUP 250 MG/5 ML UDC 500 MG NG (08:19)
[2025-05-23] MEDS: SENNOSIDES SYRUP 8.8 MG/5 ML UDC PO (08:19)
[2025-05-23] MEDS: LITHIUM CARB 150 MG CAPSULE 300 MG NG (08:19)
[2025-05-23] MEDS: FAMOTIDINE INJ 10 MG/ML VIAL 2 ML 20 MG IVP ×2 (08:20→21:45)
[2025-05-23] MEDS: ENOXAPARIN SOD INJ 40 MG/0.4 ML SYRINGE SC ×2 (08:20→21:42)
[2025-05-23] MEDS: NICOTINE PATCH 14 MG/24 HR PATCH.TD24 TOP (08:20)
[2025-05-23] MEDS: MIDAZOLAM INJ 1 MG/ML VIAL 2 ML 2 MG IVP (09:30)
[2025-05-23] MEDS: HALOPERIDOL LACT INJ 5 MG/ML VIAL IV (09:36)
[2025-05-23] MEDS: DEXMEDETOMIDINE 400 MCG IVPB 400 MCG/100 ML BAG 55.58 MCG IV ×4 (09:40→14:48)
[2025-05-23] MEDS: fentaNYL CIT INJ 50 mCg/ML AMP 2ML 75 MCG IVP (09:42)
[2025-05-23] MEDS: FUROSEMIDE INJ 10 MG/ML 4ML VIAL 40 MG IVP (09:51)
--- NOTE | 2025-05-23 10:04 | PC.NURSE ---
During sedation vacation patient spontaneously awoke and became agitated and started to desaturate. Per MD at bedside patient was given 5mg haldol, 2mg versed, and 75mcg fentanyl. These medications were overidden due to MD order and urgency of the situation.
[2025-05-23] MEDS: Vancomycin Inj 1,000 MG, Vancomycin Inj 750 MG in SODIUM CHLORIDE 0.9% 500 ML 500 ML 250 MG IV ×2 (10:22→22:41)
--- NOTE | 2025-05-23 10:24 | ESPR_ITS ---
<Statement entered by Gus Pak MD - 05/27/25 17:19> Patient seen and examined at bedside. I discussed and supervised with the market research intern physician who took care of this patient. I personally saw and examined the patient. I agree with most of the assessment and plan. Plan of care discussed with attending Dr. Hough. Gus Pak MD PGY-2 Documentation for date of: 05/23/25 Subjective Subjective Interval history: This patient is a 20-year-old male with past medical history of swg-dofechw-wijtaxeci type 2 diabetes, morbid obesity, schizoaffective disorder follows Dr. Gomes psychiatrist in [place] was admitted on floor on 05/21/2025 with chief complaint of 3 to 4 days of diarrhea associated with vomiting. Patient had multiple episodes without any blood. He denied any fever, chills, abdominal discomfort or any other complaint. Upon initial assessment per day team, GCS was 14 he was alert and oriented x 4 on BiPAP. He was able to open his eyes spontaneously. Father and boyfriend confirmed that patient had 3-4 episodes of vomiting and diarrhea after eating wings stop with his boyfriend. They had separate meals. He was appearing sick which prompted the father and boyfriend to bring him to the ED. Per patient's father and boyfriend patient had a large volume emesis. At baseline, he is generally very difficult to arouse and generally requires sternal rub and ultimately fall back asleep if not readily stood up upon waking. ED course: In the ED patient's blood pressure was 116/68, heart rate 87, RR 24 fever of 103 Fahrenheit. He was breathing on BIPAP. Labs revealed hemoglobin 13, white count 10.6, platelet 216. ABGs revealed pH 7.20, pCO2 77, pO2 67, bicarb 30. Chemistry panel revealed sodium 136, potassium 3.8, chloride 101, bicarb 26.5. Kidney function showed BUN 7 and creatinine 1.2. Blood glucose 113. A1c 5.5 lactic acid 1.6. AST 61 and ALT 59. Troponin I 0.092. TSH 4.15. Urinalysis was turbid with protein 3+, bilirubin 1+, RBC 4+, WBC 8+. U tox was negative. Influenza and HIV and COVID were negative. Imaging: Chest x-ray showed bibasilar pneumonia.CT chest showed bilateral lower lobe pneumonia with hepatomegaly. PMH: As above PSH: None Allergies: Codeine causes psychotic symptoms Home medications: [place], olanzapine, prazosin, trazodone, clozapine SH: Patient does not work. Denies drinking alcohol. Vapes cigarettes every day. Remote history of psychedelics. Patient was admitted initially on floor for sepsis rule out most likely secondary to pneumonia versus possible GI infection and eventually upgraded to ICU due to acute hypoxic hypercapnic respiratory failure due to related to community-acquired pneumonia in the setting of morbid obesity. Interval History: 05/21/2025 Patient was admitted overnight. Throughout the morning, the patient was weaned off of sedation, however the patient was only briefly open eyes to voice and did not follow commands. The patient was kept on mechanical ventilation and sedation holiday was continued. Patient's morning ABG showed improvement in the patient's acidosis and hypercapnia, so respiratory rate was decreased. ICU team opted to keep the patient on AC/VC mode to decrease the patient's work of breathing as the patient's CT did appear to have significant pneumonia bilaterally. Sputum cultures are still pending, but preliminary Gram stain results did show rare gram-positive cocci. Will continue the patient on ceftriaxone and azithromycin. The patient was started on prednisone 50 mg daily in addition to his current antibiotic regimen as his community-acquired pneumonia would be classified as severe as the patient required intubation and mechanical ventilation. The mother at bedside asked ICU team to call her when the plan to extubate the patient as the patient has been known to have difficulties with anxiety. Later in the afternoon, the patient was still off of sedation and when the nurse went to turn the patient, the patient initially followed her commands, but then became agitated and trying to pull out his ET tube. The patient had O2 desaturation into the low 60s, so the patient was bagged and given 4 mg of Versed and resumed propofol and fentanyl drip. The patient calmed down and was given a one-time dose of rocuronium to paralyze the patient. Will have the night team follow-up with additional ABGs and will see if extubation is possible tomorrow. The patient was noted to have about 3.5 L of urine output throughout the day, to which the boyfriend at bedside does note that the patient frequently has to use the bathroom to urinate because he takes lithium. 05/22/2025 No acute events overnight. Patient was given 1 L of LR overnight and urine output did decrease significantly overnight. Total urine output over the last 24 hours was noted to be 3.8, however the last few hours overnight, urine output was noted to be about 25 cc/h. Patient was noted to be more hypotensive today compared to yesterday, so patient was given another liter of LR. Morning ABG did show pH of 7.36 and pCO2 of 52, which is likely secondary to the decrease in tidal volume as compared to yesterday morning. Patient is noted to have decrease lung sounds bilaterally, with right lung sounds more clear than left lung sounds. Resumed the patient's home olanzapine and we will plan to resume the patient's home lithium tomorrow. Since the patient did grow gram-positive cocci in both bottles of blood for blood culture collected on 05/20, with one of them resembling staph, and with increasing hypertension, antibiotic regimen was broadened to include vancomycin to cover for any possible MRSA. Additionally, repeat blood cultures were ordered to monitor the progress of the bacteremia. Repeat chest x-ray this morning continues to show significant bilateral perihilar and left basilar pneumonia. Bronchoscopy with bronchial lavage was performed, which identified erythematous and friable airways. Lavage wash was sent for culture, including fungal culture, and it was decided to keep the patient sedated and on mechanical ventilation for today given the findings on bronchoscopy, will plan for sedation holiday and possible extubation tomorrow. Will follow-up with renal panel ordered for later this afternoon and will order hepatitis panel as the patient does have elevated liver enzymes without a liver panel on file. 05/23/2025 No acute events overnight. Patient was found to be biting the ET tube, so patient propofol was increased overnight. Urine culture was collected due to white sediments found in the patient's Graves. The patient was seen and evaluated at bedside this morning. Respiratory examination did show slight interval improvement as compared to yesterday. The patient sedation was decreased to just fentanyl earlier this morning, however the patient became significantly agitated, fighting the vent, and had desaturation and his oxygenation status, so the patient was sedated with haldol and midazolam, and then put on Precedex drip and fentanyl was increased. Patient was successfully put on pressure support with plans to decrease sedation later in the day for extubation. Although the patient's home medications were resumed, except for the patient's venlafaxine, and the patient's lithium was resumed at half dose. Pharmacy would later clarify that the patient would be at higher risk of seizures if he were to receive his buproprion crushed via NG tube. Later towards the evening, the patient was weaned off sedation and successfully extubated. Given the patient's mental status, the patient is high risk for re- intubation and was made NPO. Still pending results of cultures, continue with ceftriaxone and vancomycin. Patient completed 3 day course of azithromycin. Exam Vital Signs Temp Pulse Resp BP Pulse Ox O2 Del Method O2 Flow Rate 98.3 F 91 16 149/102 H 98 Mechanical Ventilation 35 05/23/25 08:00 05/23/25 10:02 05/23/25 10:02 05/23/25 10:02 05/23/25 10:02 05/23/25 08:00 05/21/25 04:00 FiO2 50 05/23/25 10:02 Narrative Exam GENERAL APPEARANCE: Patient is morbidly obese intubated and mechanically ventilated on sedation HEENT: NC, AT. MMM. EOMI, clear conjunctiva, oropharynx clear. NECK: Supple without lymphadenopathy. No stiffness or restricted ROM. HEART: Sinus tachycardia with and regular rhythm, normal S1/S2, no m/r/g LUNGS: Decreased lung sounds in bilateral lower lungs, worse on left lung compared to right. No crackles appreciated. Slight wheeze noted in right lower lung. ABDOMEN: Soft, nontender, increased abdominal girth with good bowel sounds heard. boil at pannus. BACK: No CVAT, no obvious deformity. EXTREMITIES: Without cyanosis, clubbing or edema. NEUROLOGICAL: Intubated and mech ventilated. Skin: Warm and dry without any rash. Psych: Unable to assess Objective Labs 05/23/25 06:25 05/23/25 18:25 Labs: Laboratory Results - last 24 hr 05/22/25 05/22/25 05/22/25 05:17 13:18 13:51 WBC RBC Hgb Hct MCV MCH MCHC RDW Std Deviation Plt Count Neut % (Auto) Lymph % (Auto) [place] % (Auto) Eos % (Auto) Baso % (Auto) Neut # (Auto) Lymph # (Auto) [place] # (Auto) Eos # (Auto) Baso # (Auto) Immature Gran # (Auto) Absolute Nucleated RBC Immature Gran % Nucleated RBC % Puncture Site ABG pH ABG pCO2 ABG pO2 ABG HCO3 ABG O2 Saturation ABG Base Excess FiO2 Sodium 145 Potassium 4.3 D Chloride 108 H Carbon Dioxide 27.7 Anion Gap 9 BUN 8 L Creatinine 1.0 D Estim Creat Clear Calc 184.7 eGFR > 60 BUN/Creatinine Ratio 8 L Glucose 105 Calculated Osmolality 287 Calcium 9.2 Corrected Calcium 9.2 Phosphorus 3.3 Magnesium Total Bilirubin AST ALT Alkaline Phosphatase Total Protein Albumin 4.3 Globulin Albumin/Globulin Ratio Ur Random Creatinine 31 U Random Total Protein 9 Random Vancomycin Hepatitis A IgM Ab Non Reactive Hep Bs Antigen Non Reactive Hep B Core IgM Ab Non Reactive Hepatitis C Antibody Non Reactive 05/22/25 05/23/25 05/23/25 18:41 05:03 06:25 WBC 10.2 RBC 3.82 L Hgb 11.6 L Hct 36.0 L MCV 94 MCH 30.4 MCHC 32.2 RDW Std Deviation 45.3 H Plt Count 219 Neut % (Auto) 60 Lymph % (Auto) 19 [place] % (Auto) 6 Eos % (Auto) 1 Baso % (Auto) 1 Neut # (Auto) 6.1 Lymph # (Auto) 2.0 [place] # (Auto) 0.7 Eos # (Auto) 0.1 Baso # (Auto) 0.1 Immature Gran # (Auto) 1.18 H Absolute Nucleated RBC 0.00 Immature Gran % 12 H Nucleated RBC % 0 Puncture Site Left Radial Right Radial ABG pH 7.37 7.40 ABG pCO2 53 H 50 H ABG pO2 61 L D 82 L D ABG HCO3 30 H 31 H ABG O2 Saturation 91 99 H ABG Base Excess 4 H 5 H FiO2 45 45 Sodium 151 H Potassium 4.4 Chloride 110 H Carbon Dioxide 31.2 H Anion Gap 10 BUN 8 L Creatinine 0.8 Estim Creat Clear Calc 231.2 eGFR > 60 BUN/Creatinine Ratio 10 L Glucose 103 Calculated Osmolality 298 H Calcium 9.4 Corrected Calcium 9.4 Phosphorus 3.6 Magnesium 2.2 Total Bilirubin 0.2 L AST 51 H ALT 32 Alkaline Phosphatase 49 Total Protein 6.9 Albumin 4.1 Globulin 2.8 Albumin/Globulin Ratio 1.5 Ur Random Creatinine U Random Total Protein Random Vancomycin 7.2 Hepatitis A IgM Ab Hep Bs Antigen Hep B Core IgM Ab Hepatitis C Antibody ABG Interpretation ABG results: 05/20/25 05/21/25 05/21/25 22:58 03:36 07:36 ABG pH 7.20 L 7.44 D ABG pCO2 77 H* 40 D ABG pO2 67 L 240 H D ABG HCO3 30 H 27 H ABG O2 Saturation 90 L 101 H ABG Base Excess 0 3 VBG pH 7.36 VBG pCO2 50 VBG pO2 50 VBG Base Excess 2 05/21/25 05/21/25 05/21/25 11:08 17:27 18:20 ABG pH 7.41 7.30 L D 7.35 ABG pCO2 46 56 H D 54 H ABG pO2 172 H D 61 L D 107 D ABG HCO3 29 H 27 H 30 H ABG O2 Saturation 100 H 89 L 100 H ABG Base Excess 4 H 0 3 VBG pH VBG pCO2 VBG pO2 VBG Base Excess 05/22/25 05/22/25 05/23/25 05:03 18:41 05:03 ABG pH 7.36 7.37 7.40 ABG pCO2 52 H 53 H 50 H ABG pO2 92 61 L D 82 L D ABG HCO3 29 H 30 H 31 H ABG O2 Saturation 99 H 91 99 H ABG Base Excess 3 4 H 5 H VBG pH VBG pCO2 VBG pO2 VBG Base Excess Quality Measures Quality Measures sepsis Current suspected stage: sepsis Possible source: pulmonary Blood cultures ordered: yes Antibiotic ordered: Yes Assessment & Plan Assessment Current Active Medications: Generic Name Dose Route Start Last Admin Trade Name Freq PRN Reason Stop Dose Admin Acetaminophen 650 mg 05/21/25 00:37 Acetaminophen 325 Mg Tablet PO 06/20/25 00:36 Q6H PRN Fever >100.4 or pain 1-3 Hydrocodone Bitart/Acetaminophen 1 tab 05/21/25 00:42 Hydrocodone/Apap 5/325 Tablet PO 05/26/25 00:41 Q4HR PRN PAIN SCALE 4-6 (Moderate Albuterol/Ipratropium 3 ml 05/21/25 03:00 05/23/25 10:02 Albuterol/Ipratropium (Duoneb) Rt Jannie 3 Ml Nebu INH 12/24/25 02:59 3 ml Q4HRRT ANANDA Administration Clozapine 450 mg 05/22/25 21:00 05/22/25 21:13 Clozapine 50 Mg Tablet NG 06/21/25 20:59 450 mg HS ANANDA Administration Enoxaparin Sodium 40 mg 05/21/25 10:45 05/23/25 08:20 Enoxaparin Sod Inj 40 Mg/0.4 Ml Syringe SC 06/04/25 10:44 40 mg BID ANANDA Administration Famotidine 20 mg 05/21/25 09:00 05/23/25 08:20 Famotidine Inj 10 Mg/Ml Vial 2 Ml IVP 06/20/25 08:59 20 mg Q12HR ANANDA Administration Gemfibrozil 600 mg 05/22/25 11:00 05/23/25 08:20 Gemfibrozil 600 Mg Tablet PO 06/21/25 10:59 600 mg BID ANANDA Administration Ceftriaxone Sodium/Dextrose 1 gm in 50 mls @ 100 mls/hr 05/21/25 21:00 05/22/25 21:13 Rocephin/D5w 1gm Iv Premix IV 05/28/25 20:59 100 mls/hr QDAY@2100 ANANDA Administration Azithromycin 500 mg/ Sodium 250 mls @ 250 mls/hr 05/21/25 21:00 05/22/25 21:12 Chloride IV 05/28/25 20:59 250 mls/hr QDAY@2100 ANANDA Administration Norepinephrine/Dextrose 8 mg in 250 mls @ 14.857 mls/hr 05/21/25 04:20 Levophed In D5w 8mg/250ml IV 06/20/25 04:19 .[id number] PRN PER PROTOCOL Protocol 0.05 MCG/KG/MIN Vancomycin HCl 1,000 mg/ 500 mls @ 250 mls/hr 05/22/25 10:00 05/23/25 10:22 Vancomycin HCl 750 mg/ Sodium IV 05/29/25 09:59 250 mls/hr Chloride BID@1000,2200 ANANDA Administration Protocol Propofol 1,000 mg in 100 mls @ 4.754 mls/hr 05/22/25 18:25 05/23/25 08:12 Diprivan Ivpb IV 06/20/25 17:08 0 mcg/kg/min .Q21H3M PRN 0 mls/hr PER PROTOCOL Titration Protocol 5 MCG/KG/MIN Fentanyl Citrate 2,500 mcg in 250 mls @ 2.5 mls/hr 05/22/25 18:25 05/23/25 08:12 Sublimaze Inj 2,500 Mcg/250 Ml Bag IV 05/26/25 04:19 12.5 mcg/hr .Q24H PRN 1.25 mls/hr PER PROTOCOL Titration Protocol 25 MCG/HR Dexmedetomidine/Sodium Chloride 400 mcg in 100 mls @ 7.94 mls/hr 05/23/25 09:36 05/23/25 09:40 Precedex Ivpb IV 06/22/25 09:34 1.4 mcg/kg/hr .[id number] PRN 55.58 mls/hr Per PROTOCOL Administration Protocol 0.2 MCG/KG/HR [place] Carbonate 300 mg 05/23/25 09:00 05/23/25 08:19 [place] Carb 150 Mg Capsule NG 06/22/25 08:59 300 mg QDAY ANANDA Administration Nicotine 14 mg 05/21/25 09:00 05/23/25 08:20 Nicotine Patch 14 Mg/24 Hr Patch.Td24 TOP 06/20/25 08:59 14 mg QDAY ANANDA Administration Ondansetron HCl 4 mg 05/21/25 00:37 Ondansetron Inj 2 Mg/Ml Inj 2 Ml IVP 06/20/25 00:36 Q6H PRN NAUSEA OR VOMITING Protocol Pharmacy Consult 1 each 05/22/25 09:00 Vancomycin Pharmacy To Dose 1 Each Each IV 06/21/25 08:59 QDAY PRN PNEUMONIA Prazosin HCl 1 mg 05/21/25 21:00 05/22/25 21:14 Prazosin Hcl 1 Mg Capsule PO 06/20/25 20:59 1 mg HS ANANDA Administration Prednisone 50 mg 05/21/25 10:45 05/23/25 08:19 Prednisone 20 Mg Tablet NG 06/20/25 10:44 50 mg QDAY ANANDA Administration Sennosides 8.8 mg 05/22/25 09:00 05/23/25 08:19 Sennosides Syrup 8.8 Mg/5 Ml Udc PO 06/21/25 08:59 8.8 mg QDAY ANANDA Administration Protocol Valproic Acid 500 mg 05/21/25 09:00 05/23/25 08:19 Valproic Acid Syrup 250 Mg/5 Ml Udc NG 06/20/25 08:59 500 mg BID ANANDA Administration Plan This patient is a 20-year-old male with past medical history of fjc-ispyosa-wvzbjvwww type 2 diabetes, morbid obesity, schizoaffective disorder follows Dr. Gomes psychiatrist in [place] was admitted on floor on 05/21/2025 with chief complaint of 3 to 4 days of diarrhea associated with vomiting.Patient was admitted initially on floor for sepsis rule out most likely secondary to pneumonia versus possible GI infection and eventually upgraded to ICU due to acute hypoxic hypercapnic respiratory failure due to related to community- acquired pneumonia in the setting of morbid obesity. Neurology #Acute encephalopathy DDx: Hypercapnia, acidosis, polypharmacy on multiple psych meds -U tox was negative. Etoh negative Rx -Intubated and mechanically ventilated -Anticipate correction of acidosis with ventilator -Currently holding psych meds -Treating with antibiotics #History of schizoaffective disorder Dx - Patient has a longstanding history of schizoaffective disorder. Follows psychiatrist, Dr. Gomes in [place] who sees patients biweekly on Zoom and monthly in person. - Patient lithium levels noted to be 1.24 on 05/21 Rx -Currently holding lithium 150 mg andrew and trazodone 50 mg at bedtime and clozapine -Continue with prazosin 1 mg at bedtime -Continue valproic acid -Resumed home olanzapine 20 mg daily -Will plan to resume home lithium at 300 mg daily -Buproprion 300 mg daily #History of vaping -Patient currently vapes all day. Rx -Nicotine patch Cardiovascular #Hypotension, resolved - Patient met 3/4 SIRS criteria with tachycardia tachypnea and fever with possible source of infection pneumonia versus GI infection. - Patient was placed on BiPAP in ED to help with work of breathing, eventually intubated DDx: Distributive, hypovolemic (likely distributive given active bacteremia, but also possible hypovolemia as patient did have >3.5L urine output on 05/21) Dx: -Chest x-ray showed bibasilar pneumonia. -CT chest showed bilateral lower lobe pneumonia with hepatomegaly. -Procal 0.24 -Patient noted to become hypotensive overnight from 05/21-05/22, not yet requiring vasopressors to maintain MAP >65 -Sputum culture collected 05/21, preliminary gram stain shows rare gram positive cocci, pending further results -Blood cultures collected 05/20 preliminary results show gram positive cocci resembling staph and gram negative rods in both bottles -Bronchial lavage cultures collected 05/22, pending Rx -Continue with Rocephin and vancomycin -Prednisone 50 mg daily -DuoNebs as needed #NSTEMI type II - Mild elevation in troponin I 0.092. Patient denied any chest pain prior to AMS. Downtrended to 0.059. #Cardiomegaly Dx: -CT chest 05/21 showed enlarged heart -Echocardiogram 05/21 showed enlarged heart that is upper limit of normal range Rx: -Patient to follow up outpatient Respiratory #Acute hypercapnic hypoxic respiratory failure, improving #Intubated with mechanical ventilation s/p extubation 05/23 #s/p bronchoscopy 05/22 DDx: Community-acquired pneumonia, morbid obesity, polypharmacy, cocci -Patient met 3/4 SIRS criteria with tachycardia tachypnea and fever he was on BiPAP when he presented with possible source of fracture pneumonia confirmed on chest x-ray. Dx: -Chest x-ray revealed bibasilar pneumonia which was also seen on CT chest. -ABGs showed pH 7.20, pCO2 77, pO2 67. -Patient is intubated with ET tube 8.5 at 23 cm with etomidate 40 and succinylcholine 100 by ED physician -Post chest x-ray was followed showed satisfactory ET tube position and OG pressures -CT chest 05/20 shows extensive bilateral pneumonia -ABG on 05/21 in the a.m. shows improvement of hypercapnea -Cocci IgM negative -Sputum culture collected 05/21, preliminary gram stain shows rare gram positive cocci, pending further results -Blood cultures collected 05/20 preliminary results show gram positive cocci resembling staph in 1/2 bottles, second bottle positive for gram positive cocci -s/p bronchoscopy 05/22, which found erythematous and friable airways without clear obstructions -Bronchial lavage cultures collected 05/22, pending -Patient extubated 05/23 Rx -Levophed added if MAP drops below 65 -Treat underlying pneumonia with ceftriaxone and vancomycin -Prednisone 50 mg daily -DuoNebs as needed GI and F/E/N #Hepatosplenomegaly #Transaminitis DDx: MASLD Dx: -As noted in abdomen ultrasound on 2021 -CT chest 05/21 identified hepatomegaly with fatty infiltration, irregular liver contour, and with splenomegaly -AST 53, ALT 49, and ALP 49 on admission to ICU, noted elevations in AST and ALT since 2021 -Patient does take olanzapine at home, which is noted to increase liver enzymes -Hepatitis panel ordered 05/22, negative Rx: -Patient to follow up with outpatient GI #Intractable nausea and vomiting DDx: Viral gastroenteritis -Multiple episodes of diarrhoea and vomiting; multiple episodes without blood Rx -Supportive care - IV fluids [3 L bolus given x 1] -On antibiotics Rxx -Follow-up with stool studies #Abdominal boil -Patient has a boil on the pannus. Not draining. Rx -Closely monitor for drainage Renal #ELIECER, resolved DDx: Septic ELIECER, prerenal -Creatinine 1.2 baseline 0.8 on admission to ICU -Creatinine improved to 1.0 on 05/21, continues to have good urine output -> 05/22 creatinine worsened to 1.6 and urine output significantly decreased 05/21- 05/22 overnight Rx - IV fluid resuscitation - Avoid nephrotoxic agents - Renally dose medication - Strict intake and output #Proteinuria, resolved DDx: Nephrotic syndrome, nephritic syndrome Dx: -Patient noted to have UA positive for 3+ protein on admission to ICU -Urine creatinine collected 05/21 noted to be 622 and urine total protein noted to be >250 -Repeat urine creatinine and urine protein within normal range Rx: -Patient to follow up outpatient #Polyuria DDx: Diabetes insipidus, diabetes mellitus, IV fluid hydration Dx: -Patient does take lithium at home and has been noted to frequently use restroom to urinate at home -Patient received multiple liters of fluid prior to ICU upgrade -Patient produced about 3.5 L of urine on 05/21 without use of any diuretic -UA positive for 3+ protein Rx: -Daily CMP -IVF hydration maintenance as patient urinates out significant volume Heme #Normocytic anemia Dx -Hemoglobin 12.2 Rx -PRBC if hemoglobin drop below 7 Rxx - Daily labs Endo #History of naf-xbmnzoq-vhtmpuyvq type 2 diabetes -Patient is currently not on any medications. Dx: -A1c 5.5 Rx - Blood sugar checks Q6 hourly #Hypertriglyceridemia Dx -Triglycerides noted to be 305 on 05/22 Rx -Gemfibrozil 600 mg every 12 hours -Patient to follow up outpatient ID #Community-acquired pneumonia #Gram positive cocci & gram negative rods 2/2 blood cultures Dx -Chest x-ray showed bibasilar pneumonia. -CT chest showed bilateral lower lobe pneumonia with hepatomegaly. -Procal 0.24 -No white count elevation seen -Sputum culture collected 05/21, preliminary gram stain shows rare gram positive cocci, pending further results -Blood cultures collected 05/20 preliminary results show gram positive cocci resembling staph and gram negative rods in both bottles -Bronchial lavage culture ordered, pending Rx -Continue with IV Rocephin [05/21?] and azithromycin [05/21?05/23] -Vancomycin to cover for possible MRSA [05/22-] Rxx - Follow-up blood cultures, sputum cultures and MRSA screen ICU health Maintenance: DVT prophylaxis: Lovenox 40 BID SQ (dosed for BMI) GI prophylaxis: Protonix 40 mg IV daily Diet: NPO Graves: PLACED Lines: Peripherals Drips: N/A Vent: N/A CODE STATUS: Full code Reason of hospitalization: Patient is upgraded to ICU for acute encephalopathy and acute hypoxic hypercapnic respiratory failure due to community-acquired pneumonia in setting of morbid obesity. Patient discussed with my attending, Dr. Hough, and senior resident Dr. Pak (PGY-2) Marcelino Weinstein, PGY-1
--- NOTE | 2025-05-23 10:48 | PD.INTPROG ---
Documentation for date of: 05/23/25 Subjective Subjective Interval history: This is a 20-year-old male admitted to the ICU overnight for acute hypoxic and hypercarbic respiratory failure. The patient was intubated in the small hours of the morning. Chest x-ray shows significant left-sided infiltrate and the chest CT shows bilateral consolidations with ground glass opacities as well as a fine multinodular appearance. Currently he is sedated and doing well on the vent. Good urinary output, no other acute events. 05/22- yesterday evening became agitated and desatted. required manual bagging, 100%FiO2 and one round of NMB. changes made to vent with decrease in Vt and increase in PEEP was able to come down from 100% FiO2 to 80%. sedation increased, remained calm overnight, UOP yesterday during the day was increased however decreased overnight. afebrile 05/23- no acute overnight events, remains intubated and sedated, good UOP, afebrile, pt wakes up agitated and required haldol/versed and precedex to resedate Critical Care Note Critical care time (min.): 43 Exam Vital Signs Temp Pulse Resp BP Pulse Ox O2 Del Method O2 Flow Rate 98.3 F 91 16 149/102 H 98 Mechanical Ventilation 35 05/23/25 08:00 05/23/25 10:02 05/23/25 10:02 05/23/25 10:02 05/23/25 10:02 05/23/25 08:00 05/21/25 04:00 FiO2 50 05/23/25 10:02 Narrative Exam Gen- NAD, intubated , sedated, obese body habitus HEENT- NC/AT, mucosa hydrated, sclera anicteric, PERRL, ETT/OGT in place Chest- coarse breath sounds b/l with some expiratory wheeze, HRRR, no increase in WOB Abd- obese, s/nt/bs+ Ext- trace edema, pulses palp, no clubbing, no mottling, moves all 4 Vent AC VC Drips prop fent Physical Exam Completion Physical Exam Complete?: Yes Objective - Mobility Engineer Labs 05/23/25 06:25 05/23/25 06:25 Labs: Laboratory Results - last 24 hr 05/22/25 05/22/25 05/22/25 05:17 13:18 13:51 WBC RBC Hgb Hct MCV MCH MCHC RDW Std Deviation Plt Count Neut % (Auto) Lymph % (Auto) [place] % (Auto) Eos % (Auto) Baso % (Auto) Neut # (Auto) Lymph # (Auto) [place] # (Auto) Eos # (Auto) Baso # (Auto) Immature Gran # (Auto) Absolute Nucleated RBC Immature Gran % Nucleated RBC % Puncture Site ABG pH ABG pCO2 ABG pO2 ABG HCO3 ABG O2 Saturation ABG Base Excess FiO2 Sodium 145 Potassium 4.3 D Chloride 108 H Carbon Dioxide 27.7 Anion Gap 9 BUN 8 L Creatinine 1.0 D Estim Creat Clear Calc 184.7 eGFR > 60 BUN/Creatinine Ratio 8 L Glucose 105 Calculated Osmolality 287 Calcium 9.2 Corrected Calcium 9.2 Phosphorus 3.3 Magnesium Total Bilirubin AST ALT Alkaline Phosphatase Total Protein Albumin 4.3 Globulin Albumin/Globulin Ratio Ur Random Creatinine 31 U Random Total Protein 9 Random Vancomycin Hepatitis A IgM Ab Non Reactive Hep Bs Antigen Non Reactive Hep B Core IgM Ab Non Reactive Hepatitis C Antibody Non Reactive 05/22/25 05/23/25 05/23/25 18:41 05:03 06:25 WBC 10.2 RBC 3.82 L Hgb 11.6 L Hct 36.0 L MCV 94 MCH 30.4 MCHC 32.2 RDW Std Deviation 45.3 H Plt Count 219 Neut % (Auto) 60 Lymph % (Auto) 19 [place] % (Auto) 6 Eos % (Auto) 1 Baso % (Auto) 1 Neut # (Auto) 6.1 Lymph # (Auto) 2.0 [place] # (Auto) 0.7 Eos # (Auto) 0.1 Baso # (Auto) 0.1 Immature Gran # (Auto) 1.18 H Absolute Nucleated RBC 0.00 Immature Gran % 12 H Nucleated RBC % 0 Puncture Site Left Radial Right Radial ABG pH 7.37 7.40 ABG pCO2 53 H 50 H ABG pO2 61 L D 82 L D ABG HCO3 30 H 31 H ABG O2 Saturation 91 99 H ABG Base Excess 4 H 5 H FiO2 45 45 Sodium 151 H Potassium 4.4 Chloride 110 H Carbon Dioxide 31.2 H Anion Gap 10 BUN 8 L Creatinine 0.8 Estim Creat Clear Calc 231.2 eGFR > 60 BUN/Creatinine Ratio 10 L Glucose 103 Calculated Osmolality 298 H Calcium 9.4 Corrected Calcium 9.4 Phosphorus 3.6 Magnesium 2.2 Total Bilirubin 0.2 L AST 51 H ALT 32 Alkaline Phosphatase 49 Total Protein 6.9 Albumin 4.1 Globulin 2.8 Albumin/Globulin Ratio 1.5 Ur Random Creatinine U Random Total Protein Random Vancomycin 7.2 Hepatitis A IgM Ab Hep Bs Antigen Hep B Core IgM Ab Hepatitis C Antibody Assessment & Plan Additional Assessment Additional Assessment: In summary this is a 18-year-old male admitted to the ICU for acute hypoxic/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 History of schizophrenia - on home meds CV Cardiomegaly- echo shows nl LV EF with some degree of pulmonary HTN in setting of ARDS Resp Acute hypoxic/hypercapnic respiratory failure-currently intubated, follow-up with ABG and chest x-ray -ABG results noted and vent changes made -improving today with decrease in FiO2 needs - bronch performed 05/22 and showed extensive erythema and edema with narrowing of the airways on the L with some purulent discharge noted, there was some bleeding with lavage noted - permissive hypercapnea - ABG results noted - ween as able Community-acquired pneumonia-currently on ceftriaxone and azithromycin -on steroids for severe community-acquired pneumonia -Cultures are pending but prelim shows GPC - cocci studies sent and NTD Renal Proteinuria-check random urine protein creatinine ratio - initially elevated however recheck now wnl ELIECER- monitor UOP - urine in bag looks dark -> 1lt LR - avoid nephrotoxins - good UOP - improved HyperNa- pt is net neg over the last 48hrs - if unable to extubate today will start tube feeds GI Hepatosplenomegaly-this appears to have first been noted in 2021 - may have underlying MASLD - will need GI workup -Patient has had persistent transaminitis since 2021 - check viral panel-> neg GI proph- PPI Endo Hypertriglyceridemia- started on gemfibrozil 600mg q12 Heme DVT proph- lovenox 40mg q12 Anemia- slow drift down, no active bleeding - stable ID Question bacteremia- today GPC noted in 2/2 bottles - awaiting further identification - repeat bcx NTD - MRSA swab is neg case d/w ICU team d/w family at bedside labs, imaging, records reviewed ~43ccmin required for eval, exam, review, intervention, discussion and formulation of POC for this critically ill pt with resp failure at high risk for further and ongoing decompensation Provider Notation Provider Notation: Although this document has been carefully reviewed, there may still be some phonetic and other typographical errors. These errors are purely grammatical due to imperfections in the software program and should not be construed in any way to compromise the substance of the patient's medical care during this visit. Thank you for the opportunity and privilege in assisting you with this patient's care and management.
[2025-05-23 12:52] LABS: Cocci Serology, IgG Negative (Negative)
[2025-05-23 13:16] LABS: Base Excess 7 (-3-3); HCO3 31 mEq/L (20-26); Inspired Oxygen, FIO2 35 %; O2 Saturation 92 % (91-98); PCO2 42 mmHg (32.0-48.0); pH, Arterial 7.48 (7.35-7.45)
[2025-05-23 13:21] LABS: Allen Test Performed/OK; PO2 56 mmHg (83-108); Puncture Site Left Radial
[2025-05-23 16:28] LABS: Path Review Blood Smear Sent to Pathologist
[2025-05-23 19:05] LABS: Albumin, Serum 4.4 gm/dL (3.5-5.0); Anion Gap 12 (7-16); BUN/Creatinine Ratio 13 Ratio (12-20); Blood Urea Nitrogen 12 mg/dL (9-23); Calcium 9.9 mg/dL (8.3-10.6); Calcium (Corrected) 9.9 mg/dL (8.5-10.1); Carbon Dioxide 29.4 mMol/L (20.0-31.0); Chloride 110 mMol/L (98-107); Creatinine (Component) 0.9 mg/dL (0.6-1.3); Estimated Creatinine Clearance 205.5 mL/min (>60); Glucose 112 mg/dL (74-106); Osmolality,Calculated 300 (275-295); Phosphorous 2.2 mg/dL (2.4-5.1); Potassium 4.4 mMol/L (3.4-5.1); Sodium 151 mMol/L (136-145); eGFR > 60 See Note
[2025-05-23] MEDS: cefTRIAXone/D5w 1gm IV premix 1 GM/50 ML BAG IV (20:27)
[2025-05-23] MEDS: VALPROATE SOD INJ 250 MG in SODIUM CHLORIDE 0.9% 50 ML 52.5 MG IV (21:45)
[2025-05-23 22:09] LABS: Vancomycin,Trough 6.0 mcg/mL (5.0-10.0)
[2025-05-23 22:37] LABS: Base Excess 7 (-3-3); HCO3 32 mEq/L (20-26); Inspired Oxygen, FIO2 65 %; O2 Saturation 95 % (91-98); PCO2 46 mmHg (32.0-48.0); PO2 70 mmHg (83-108); pH, Arterial 7.46 (7.35-7.45)
[2025-05-23 22:40] LABS: Allen Test Performed/OK; Puncture Site Right Radial
[2025-05-23] MEDS: POT PHOS 15 mMol in NS 250 ML 15 MMOL/250 ML BAG 62.5 MMOL IV (23:46)
[2025-05-24] VITALS (33 sets, daily range): BP systolic 128–191; BP diastolic 82–127; PULSE 89–104; RESP 16–29; TEMP 36.4–37.1; O2SAT 92–98; BMI 44.4
[2025-05-24 00:52] LABS: Alanine Aminotransferase 35 U/L (10-49); Albumin, Serum 4.2 gm/dL (3.5-5.0); Albumin/Globulin Ratio 1.7 (1.2-2.2); Alkaline Phosphatase 50 U/L (46-116); Anion Gap 12 (7-16); Aspartate Amino Transferase 77 U/L (0-34); BUN/Creatinine Ratio 21 Ratio (12-20); Bilirubin,Total 0.3 mg/dL (0.3-1.2); Blood Urea Nitrogen 17 mg/dL (9-23); Calcium 8.9 mg/dL (8.3-10.6); Calcium (Corrected) 8.9 mg/dL (8.5-10.1); Carbon Dioxide 29.8 mMol/L (20.0-31.0); Chloride 111 mMol/L (98-107); Creatinine (Component) 0.8 mg/dL (0.6-1.3); Estimated Creatinine Clearance 231.2 mL/min (>60); Globulin 2.5 gm/dL (2.3-3.5); Glucose 101 mg/dL (74-106); Osmolality,Calculated 305 (275-295); Potassium 4.5 mMol/L (3.4-5.1); Sodium 153 mMol/L (136-145); Total Protein 6.7 gm/dL (5.7-8.2); eGFR > 60 See Note
[2025-05-24] MEDS: ALBUTEROL/IPRATROPIUM (Duoneb) RT SOL 3 ML NEBU INH ×5 (02:25→22:53)
[2025-05-24] MEDS: DEXTROSE 5%-WATER 1,000 ML 100 ML IV ×3 (02:31→22:30)
[2025-05-24] MEDS: VALPROATE SOD INJ 250 MG in SODIUM CHLORIDE 0.9% 50 ML 52.5 MG IV ×2 (02:47→09:22)
[2025-05-24 04:59] LABS: Basophils # (Auto) 0.1 Thou/mm3 (0.0-0.2); Basophils % (Auto) 1 % (0-2.5); Eosinophils # (Auto) 0.1 Thou/mm3 (0.0-0.5); Eosinophils % (Auto) 0 % (0-10); Hematocrit 39.7 % (41.0-53.0); Hemoglobin 12.4 g/dL (13.5-16.0); Immature Granulocytes Auto 1.50 Thou/mm3 (0.00-0.00); Lymphocytes # (Auto) 2.7 Thou/mm3 (1.0-4.8); Lymphocytes % (Auto) 23 % (10-50); Mean Corpuscular HGB Conc 31.2 g/dl (31.0-37.0); Mean Corpuscular Hemoglobin 29.8 pg (25.0-35.0); Mean Corpuscular Volume 95 fL (80-100); Monocytes # (Auto) 1.2 Thou/mm3 (0.0-0.8); Monocytes % (Auto) 10 % (0-12); Neutrophils # (Auto) 6.6 Thou/mm3 (1.8-7.7); Neutrophils % (Auto) 55 % (37-80); Nucleated Red Blood Cell # 0.00 Thou/mm3 (0.00-0.00); Nucleated Red Blood Cell % 0 /100 WBC (0); Platelet Count 162 Thou/mm3 (140-440); RDW Standard Deviation 47.8 fL (35.1-43.9); Red Blood Count 4.16 Miln/mm3 (4.50-5.90); White Blood Count 12.1 Thou/mm3 (3.8-10.6)
[2025-05-24 05:13] LABS: Alanine Aminotransferase 31 U/L (10-49); Albumin, Serum 4.0 gm/dL (3.5-5.0); Albumin/Globulin Ratio 1.4 (1.2-2.2); Alkaline Phosphatase 47 U/L (46-116); Anion Gap 12 (7-16); Aspartate Amino Transferase 75 U/L (0-34); BUN/Creatinine Ratio 14 Ratio (12-20); Bilirubin,Total 0.3 mg/dL (0.3-1.2); Blood Urea Nitrogen 11 mg/dL (9-23); Calcium 8.8 mg/dL (8.3-10.6); Calcium (Corrected) 8.8 mg/dL (8.5-10.1); Carbon Dioxide 27.5 mMol/L (20.0-31.0); Chloride 113 mMol/L (98-107); Creatinine (Component) 0.8 mg/dL (0.6-1.3); Estimated Creatinine Clearance 229.6 mL/min (>60); Globulin 2.9 gm/dL (2.3-3.5); Glucose 108 mg/dL (74-106); Magnesium 2.1 mg/dL (1.6-2.6); Osmolality,Calculated 302 (275-295); Phosphorous 4.3 mg/dL (2.4-5.1); Potassium 4.5 mMol/L (3.4-5.1); Sodium 152 mMol/L (136-145); Total Protein 6.9 gm/dL (5.7-8.2); eGFR > 60 See Note
[2025-05-24] MEDS: VANCOMYCIN/D5W 1500 MG IVPB 300 ML 120 MG IV ×3 (08:09→21:52)
[2025-05-24] MEDS: NICOTINE PATCH 14 MG/24 HR PATCH.TD24 TOP (08:17)
[2025-05-24] MEDS: ENOXAPARIN SOD INJ 40 MG/0.4 ML SYRINGE SC ×2 (08:17→21:55)
[2025-05-24] MEDS: FAMOTIDINE INJ 10 MG/ML VIAL 2 ML 20 MG IVP ×2 (08:17→21:54)
--- NOTE | 2025-05-24 08:33 | ESPR_ITS ---
Documentation for date of: 05/24/25 Subjective Subjective Interval history: This is a 20-year-old male admitted to the ICU overnight for acute hypoxic and hypercarbic respiratory failure. The patient was intubated in the small hours of the morning. Chest x-ray shows significant left-sided infiltrate and the chest CT shows bilateral consolidations with ground glass opacities as well as a fine multinodular appearance. Currently he is sedated and doing well on the vent. Good urinary output, no other acute events. 05/22- yesterday evening became agitated and desatted. required manual bagging, 100%FiO2 and one round of NMB. changes made to vent with decrease in Vt and increase in PEEP was able to come down from 100% FiO2 to 80%. sedation increased, remained calm overnight, UOP yesterday during the day was increased however decreased overnight. afebrile 05/23- no acute overnight events, remains intubated and sedated, good UOP, afebrile, pt wakes up agitated and required haldol/versed and precedex to resedate 05/24- no acute overnight events, extubated yesterday evening after which she required high flow nasal cannula at 65% FiO2. Did well overnight and FiO2 was come down to 40%. Patient still very sleepy today. Good urinary output. Overnight he was hypernatremic and started on D5W Critical Care Note Critical care time (min.): 40 Exam Vital Signs Temp Pulse Resp BP Pulse Ox O2 Del Method O2 Flow Rate 97.8 F 98 17 135/99 H 92 L High Flow Nasal Cannula 40 05/24/25 04:00 05/24/25 07:00 05/24/25 07:00 05/24/25 07:00 05/24/25 07:00 05/24/25 04:00 05/24/25 06:50 FiO2 40 05/24/25 06:50 Narrative Exam General-no acute distress, sleepy lethargic, obese body habitus HEENT-normocephalic, atraumatic, sclera icteric, oral mucosa somewhat dry, adequate dentition, pupils equal reactive responding to light Chest-diminished at bases, coarse, few scattered wheeze, heart rate regular and rhythmic, no bradycardia murmurs auscultated, no increased work of breathing though slightly tachypneic Abdomen-soft, nontender, bowel sounds present, no rebound or guarding Extremities-no edema of the lower extremities, pulses palpable, no clubbing, no mottling, no focal Physical Exam Completion Physical Exam Complete?: Yes Objective - Bench Shear Operator Labs 05/24/25 04:25 05/24/25 04:25 Labs: Laboratory Results - last 24 hr 05/21/25 05/23/25 05/23/25 11:28 06:25 13:05 WBC RBC Hgb Hct MCV MCH MCHC RDW Std Deviation Plt Count Neut % (Auto) Lymph % (Auto) [place] % (Auto) Eos % (Auto) Baso % (Auto) Neut # (Auto) Lymph # (Auto) [place] # (Auto) Eos # (Auto) Baso # (Auto) Immature Gran # (Auto) Absolute Nucleated RBC Immature Gran % Nucleated RBC % Smear Path Review Sent to Pathologist Puncture Site Left Radial ABG pH 7.48 H ABG pCO2 42 ABG pO2 56 L* D ABG HCO3 31 H ABG O2 Saturation 92 ABG Base Excess 7 H FiO2 35 Sodium Potassium Chloride Carbon Dioxide Anion Gap BUN Creatinine Estim Creat Clear Calc eGFR BUN/Creatinine Ratio Glucose Calculated Osmolality Calcium Corrected Calcium Phosphorus Magnesium Total Bilirubin AST ALT Alkaline Phosphatase Total Protein Albumin Globulin Albumin/Globulin Ratio Vancomycin Trough Coccidioides IgG Ab Negative 05/23/25 05/23/25 05/23/25 18:25 21:29 22:03 WBC RBC Hgb Hct MCV MCH MCHC RDW Std Deviation Plt Count Neut % (Auto) Lymph % (Auto) [place] % (Auto) Eos % (Auto) Baso % (Auto) Neut # (Auto) Lymph # (Auto) [place] # (Auto) Eos # (Auto) Baso # (Auto) Immature Gran # (Auto) Absolute Nucleated RBC Immature Gran % Nucleated RBC % Smear Path Review Puncture Site Right Radial ABG pH 7.46 H ABG pCO2 46 ABG pO2 70 L ABG HCO3 32 H ABG O2 Saturation 95 ABG Base Excess 7 H FiO2 65 Sodium 151 H Potassium 4.4 Chloride 110 H Carbon Dioxide 29.4 Anion Gap 12 BUN 12 Creatinine 0.9 Estim Creat Clear Calc 205.5 eGFR > 60 BUN/Creatinine Ratio 13 Glucose 112 H Calculated Osmolality 300 H Calcium 9.9 Corrected Calcium 9.9 Phosphorus 2.2 L Magnesium Total Bilirubin AST ALT Alkaline Phosphatase Total Protein Albumin 4.4 Globulin Albumin/Globulin Ratio Vancomycin Trough 6.0 Coccidioides IgG Ab 05/24/25 05/24/25 00:16 04:25 WBC 12.1 H RBC 4.16 L Hgb 12.4 L Hct 39.7 L MCV 95 MCH 29.8 MCHC 31.2 RDW Std Deviation 47.8 H Plt Count 162 D Neut % (Auto) 55 Lymph % (Auto) 23 [place] % (Auto) 10 Eos % (Auto) 0 Baso % (Auto) 1 Neut # (Auto) 6.6 Lymph # (Auto) 2.7 [place] # (Auto) 1.2 H Eos # (Auto) 0.1 Baso # (Auto) 0.1 Immature Gran # (Auto) 1.50 H Absolute Nucleated RBC 0.00 Immature Gran % 12 H Nucleated RBC % 0 Smear Path Review Puncture Site ABG pH ABG pCO2 ABG pO2 ABG HCO3 ABG O2 Saturation ABG Base Excess FiO2 Sodium 153 H 152 H Potassium 4.5 4.5 Chloride 111 H 113 H Carbon Dioxide 29.8 27.5 Anion Gap 12 12 BUN 17 11 Creatinine 0.8 0.8 Estim Creat Clear Calc 231.2 229.6 eGFR > 60 > 60 BUN/Creatinine Ratio 21 H 14 Glucose 101 108 H Calculated Osmolality 305 H 302 H Calcium 8.9 8.8 Corrected Calcium 8.9 8.8 Phosphorus 4.3 Magnesium 2.1 Total Bilirubin 0.3 0.3 AST 77 H 75 H ALT 35 31 Alkaline Phosphatase 50 47 Total Protein 6.7 6.9 Albumin 4.2 4.0 Globulin 2.5 2.9 Albumin/Globulin Ratio 1.7 1.4 Vancomycin Trough Coccidioides IgG Ab Assessment & Plan Additional Assessment Additional Assessment: In summary this is a 18-year-old male admitted to the ICU for acute hypoxic/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 History of schizophrenia - on home meds - Appears very sedated today hold for now CV Cardiomegaly- echo shows nl LV EF with some degree of pulmonary HTN in setting of ARDS Resp Acute hypoxic/hypercapnic respiratory failure-extubated yesterday evening - bronch performed 05/22 and showed extensive erythema and edema with narrowing of the airways on the L with some purulent discharge noted, there was some bleeding with lavage noted -On high flow nasal cannula with an FiO2 that was weaned from 65% to 40% this morning - Continue CPT - Appears to show gradual improvement Community-acquired pneumonia-currently on ceftriaxone and azithromycin -on steroids for severe community-acquired pneumonia -Cultures are pending but prelim shows GPC - cocci studies sent and NTD - repeat chest CT - Patient had no significant white count on arrival and only 1 fever. BAL sample did not show much in the way of WBCs or organisms - Question if this may be a pneumonitis unrelated to a bacterial infection - Have added on an DIRK and ANCA studies along with a sed rate and CRP - Will evaluate patient's psych meds for possible drug-induced lung disease - Patient has history of vape use question if patient's lung injury could be vape associated Renal Proteinuria-check random urine protein creatinine ratio - initially elevated however recheck now wnl ELIECER-resolved HyperNa- started on D5W - Follow-up with repeat labs GI Hepatosplenomegaly-this appears to have first been noted in 2021 - may have underlying MASLD - will need GI workup -Patient has had persistent transaminitis since 2021 - check viral panel-> neg GI proph- PPI Endo Hypertriglyceridemia- started on gemfibrozil 600mg q12 Heme DVT proph- lovenox 40mg q12 Anemia- slow drift down, no active bleeding - stable Leukocytosis-slight trend up today - on steroids ID Question bacteremia- today GPC noted in 2/2 bottles - awaiting further identification -> d/w micro and stilll pending today - repeat bcx NTD - MRSA swab is neg case d/w ICU team d/w family at bedside labs, imaging, records reviewed ~40ccmin required for eval, exam, review, intervention, discussion and formulation of POC for this critically ill pt with resp failure at high risk for further and ongoing decompensation Provider Notation Provider Notation: Although this document has been carefully reviewed, there may still be some phonetic and other typographical errors. These errors are purely grammatical due to imperfections in the software program and should not be construed in any way to compromise the substance of the patient's medical care during this visit. Thank you for the opportunity and privilege in assisting you with this patient's care and management.
--- NOTE | 2025-05-24 08:45 | XR_ITS ---
Examination: CT chest, without intravenous contrast. Sagittal and coronal 2-D reconstructions. Exam date and time: May 24, 2025, 0927 hours, comparison May 21, 2025 INDICATIONS: Pneumonia ARDS this week, extensive pneumonia on CT chest May 21, 2025 CTDI:vol (mGy) 24 DLP: (mGycm) 274 Technique: Multiple 3.0 mm axial sections of the chest to been obtained. Bone and lung density settings are obtained. Sagittal and coronal 2-D reconstructions have been obtained. Low dose protocols were performed. One or more of the following dose reduction techniques were used; automated exposure control, adjustment of the mA and/or KV according to patient size, use of iterative reconstruction technique. Findings: No thoracic aortic aneurysm dilatation Pulmonary artery segments are not enlarged Extensive bilateral pneumonia especially at the lung bases with mild improvement compared with May 21, 2025 Hepatomegaly with diffuse fatty infiltration throughout the liver Significant hepatosplenomegaly Hyperdense gallbladder No pancreatic or adrenal mass Adequate bone density IMPRESSION: Extensive bilateral pneumonia especially at the lung bases, mild improvement compared with May 21, 2025 Significant hepatosplenomegaly Hyperdense gallbladder, recommend about a biliary sonography follow-up
--- NOTE | 2025-05-24 09:44 | PCS.ST ---
swallow evaluation completed. [employer]AX [employer] recommends D1/thin liquids at this time. No straw or cup sip. Spoon sips only. Ice chips PRN
[2025-05-24 09:54] LABS: Collection Type, Urine Catheter; Squamous Epithelial Cell,Urine 0 /hpf (0-5)
[2025-05-24 10:04] LABS: Amorphous Crystals,Urine Present (Absent); Bilirubin,Urine Negative (Negative); Blood,Urine 2+ (Negative); Clarity,Urine Clear (Clear/Hazy); Color,Urine Yellow (Lt Yel-Yel); Glucose, Urine Negative (Negative); Ketones,Urine Negative (Negative); Leukocyte Esterase,Urine Negative (Negative); Nitrite,Urine Negative (Negative); PH,Urine 6.5 (5.0-7.0); Protein,Urine 2+ (Neg - Trace); RBC,Urine 178 /hpf (0-3); Specific Gravity,Urine 1.028 (1.001-1.035); Urobilinogen,Urine Negative mg/dL (0.0-1.0); WBC,Urine 4 /hpf (0-5)
[2025-05-24] MEDS: LITHIUM CARB 150 MG CAPSULE 300 MG PO (10:42)
--- NOTE | 2025-05-24 10:51 | ESPR_ITS ---
<Statement entered by Victor Hugo Sauer MD - 05/24/25 17:02> 20-year-old male with significant past medical history of prediabetes, morbid obesity, schizoaffective disorder following with Dr. Gomes in [place] with recent medication changes this month presented to the hospital with chief complaints of diarrhea and vomitings for 4 days and as his sensorium is getting worse he was brought in to the hospital by his mother. Noted to have febrile episode of 103 ?F at the time of admission. Initially patient was admitted to the floors later as his breathing got worse even on BiPAP, patient was intubated and upgraded to the ICU. Tried to wean off the ventilator but unsuccessful initially as patient got agitated and not able to follow the commands. On 05/23/2025 successfully extubated and as of today patient is on high flow in the morning but slowly weaned off to oxy mask and patient is back to his baseline. As patient does not need any further ICU care, downgrading to floors for further management. DIRK screening is ordered but send out is not available till Wednesday. Resumed all his psychiatric medication except clozapine and give signout to the floors team for further management. I have personally seen and examined the patient, agree with residents assessment and plan Patient plan of care was discussed with the attending physician, Dr. Gianluca Sauer, PGY2 Documentation for date of: 05/24/25 Subjective Subjective Interval history: This patient is a 20-year-old male with past medical history of ifz-[id number]-yuutceaty type 2 diabetes, morbid obesity, schizoaffective disorder follows Dr. Gomes psychiatrist in [place] was admitted on floor on 05/21/2025 with chief complaint of 3 to 4 days of diarrhea associated with vomiting. Patient had multiple episodes without any blood. He denied any fever, chills, abdominal discomfort or any other complaint. Upon initial assessment per day team, GCS was 14 he was alert and oriented x 4 on BiPAP. He was able to open his eyes spontaneously. Father and boyfriend confirmed that patient had 3-4 episodes of vomiting and diarrhea after eating wings stop with his boyfriend. They had separate meals. He was appearing sick which prompted the father and boyfriend to bring him to the ED. Per patient's father and boyfriend patient had a large volume emesis. At baseline, he is generally very difficult to arouse and generally requires sternal rub and ultimately fall back asleep if not readily stood up upon waking. ED course: In the ED patient's blood pressure was 116/68, heart rate 87, RR 24 fever of 103 Fahrenheit. He was breathing on BIPAP. Labs revealed hemoglobin 13, white count 10.6, platelet 216. ABGs revealed pH 7.20, pCO2 77, pO2 67, bicarb 30. Chemistry panel revealed sodium 136, potassium 3.8, chloride 101, bicarb 26.5. Kidney function showed BUN 7 and creatinine 1.2. Blood glucose 113. A1c 5.5 lactic acid 1.6. AST 61 and ALT 59. Troponin I 0.092. TSH 4.15. Urinalysis was turbid with protein 3+, bilirubin 1+, RBC 4+, WBC 8+. U tox was negative. Influenza and HIV and COVID were negative. Imaging: Chest x-ray showed bibasilar pneumonia.CT chest showed bilateral lower lobe pneumonia with hepatomegaly. PMH: As above PSH: None Allergies: Codeine causes psychotic symptoms Home medications: Kapalua, olanzapine, prazosin, trazodone, clozapine SH: Patient does not work. Denies drinking alcohol. Vapes cigarettes every day. Remote history of psychedelics. Patient was admitted initially on floor for sepsis rule out most likely secondary to pneumonia versus possible GI infection and eventually upgraded to ICU due to acute hypoxic hypercapnic respiratory failure due to related to community-acquired pneumonia in the setting of morbid obesity. Interval History: 05/21/2025 Patient was admitted overnight. Throughout the morning, the patient was weaned off of sedation, however the patient was only briefly open eyes to voice and did not follow commands. The patient was kept on mechanical ventilation and sedation holiday was continued. Patient's morning ABG showed improvement in the patient's acidosis and hypercapnia, so respiratory rate was decreased. ICU team opted to keep the patient on AC/VC mode to decrease the patient's work of breathing as the patient's CT did appear to have significant pneumonia bilaterally. Sputum cultures are still pending, but preliminary Gram stain results did show rare gram-positive cocci. Will continue the patient on ceftriaxone and azithromycin. The patient was started on prednisone 50 mg daily in addition to his current antibiotic regimen as his community-acquired pneumonia would be classified as severe as the patient required intubation and mechanical ventilation. The mother at bedside asked ICU team to call her when the plan to extubate the patient as the patient has been known to have difficulties with anxiety. Later in the afternoon, the patient was still off of sedation and when the nurse went to turn the patient, the patient initially followed her commands, but then became agitated and trying to pull out his ET tube. The patient had O2 desaturation into the low 60s, so the patient was bagged and given 4 mg of Versed and resumed propofol and fentanyl drip. The patient calmed down and was given a one-time dose of rocuronium to paralyze the patient. Will have the night team follow-up with additional ABGs and will see if extubation is possible tomorrow. The patient was noted to have about 3.5 L of urine output throughout the day, to which the boyfriend at bedside does note that the patient frequently has to use the bathroom to urinate because he takes lithium. 05/22/2025 No acute events overnight. Patient was given 1 L of LR overnight and urine output did decrease significantly overnight. Total urine output over the last 24 hours was noted to be 3.8, however the last few hours overnight, urine output was noted to be about 25 cc/h. Patient was noted to be more hypotensive today compared to yesterday, so patient was given another liter of LR. Morning ABG did show pH of 7.36 and pCO2 of 52, which is likely secondary to the decrease in tidal volume as compared to yesterday morning. Patient is noted to have decrease lung sounds bilaterally, with right lung sounds more clear than left lung sounds. Resumed the patient's home olanzapine and we will plan to resume the patient's home lithium tomorrow. Since the patient did grow gram-positive cocci in both bottles of blood for blood culture collected on 05/20, with one of them resembling staph, and with increasing hypertension, antibiotic regimen was broadened to include vancomycin to cover for any possible MRSA. Additionally, repeat blood cultures were ordered to monitor the progress of the bacteremia. Repeat chest x-ray this morning continues to show significant bilateral perihilar and left basilar pneumonia. Bronchoscopy with bronchial lavage was performed, which identified erythematous and friable airways. Lavage wash was sent for culture, including fungal culture, and it was decided to keep the patient sedated and on mechanical ventilation for today given the findings on bronchoscopy, will plan for sedation holiday and possible extubation tomorrow. Will follow-up with renal panel ordered for later this afternoon and will order hepatitis panel as the patient does have elevated liver enzymes without a liver panel on file. 05/23/2025 No acute events overnight. Patient was found to be biting the ET tube, so patient propofol was increased overnight. Urine culture was collected due to white sediments found in the patient's Graves. The patient was seen and evaluated at bedside this morning. Respiratory examination did show slight interval improvement as compared to yesterday. The patient sedation was decreased to just fentanyl earlier this morning, however the patient became significantly agitated, fighting the vent, and had desaturation and his oxygenation status, so the patient was sedated with haldol and midazolam, and then put on Precedex drip and fentanyl was increased. Patient was successfully put on pressure support with plans to decrease sedation later in the day for extubation. Although the patient's home medications were resumed, except for the patient's venlafaxine, and the patient's lithium was resumed at half dose. Pharmacy would later clarify that the patient would be at higher risk of seizures if he were to receive his buproprion crushed via NG tube. Later towards the evening, the patient was weaned off sedation and successfully extubated. Given the patient's mental status, the patient is high risk for re- intubation and was made NPO. Still pending results of cultures, continue with ceftriaxone and vancomycin. Patient completed 3 day course of azithromycin. 05/24/2025 No acute events overnight. Patient continued to be on high flow nasal cannula overnight without any reintubation. The night team started the patient on D5W for the patient's continued rise in sodium. Patient continued to have good urine output with production of 3 L over the past 24 hours. The patient's acute encephalopathy has completely resolved, the patient mostly more calm, and is awake and alert x 3. Patient is interactive primarily with his family. The patient passed his bedside swallow evaluation, so the patient was started on an oral diet and had his p.o. medications resumed. Given that the patient had extensive inflammation in his lungs as per bronchoscopy and yet bronchial lavage culture did not show any acute bacterial infection, there is possible that his extensive inflammation is secondary to the patient's long history of vaping, at least for the past 3 years, and before that the patient was noted to be smoking cigarettes. Ordered DIRK and ANCA serology to assess for any autoimmune contribution to the patient's respiratory status. Will continue to hold clozapine for the rest of the day given the patient's improvement in mental status. Still pending final results of blood culture, currently shows gram- negative rods and gram-positive cocci in both bottles. Will downgrade to medical floors given patient's stability. Exam Vital Signs Temp Pulse Resp BP Pulse Ox O2 Del Method O2 Flow Rate 97.8 F 98 22 H 179/112 H 96 High Flow Nasal Cannula 40 05/24/25 08:01 05/24/25 10:00 05/24/25 10:00 05/24/25 10:00 05/24/25 10:00 05/24/25 04:00 05/24/25 06:50 FiO2 40 05/24/25 06:50 Narrative Exam Physical Exam: General: Alert, no acute distress. Skin: Warm, dry, intact. Head: Normocephalic, atraumatic. Eye: Normal conjunctiva, PERRL. Throat: Oral mucosa moist. No obvious lesions in oropharynx. Cardiovascular: Regular rate and rhythm, no murmur, +S1/S2. Respiratory: Expiratory rattling sound, respirations unlabored, no crackles, no wheezing. Gastrointestinal: Soft, nontender, non-distended. No guarding or rebound tenderness. Extremities: No edema, no cyanosis, no clubbing. 2+ radial pulse bilaterally, 2+ pedal pulse bilaterally. Neuro: No focal deficits observed. Conversant, moving all extremities. No overt cerebellar signs/incoordination. Psychiatric: Cooperative, appropriate affect. Objective Labs 05/24/25 04:25 05/24/25 04:25 Labs: Laboratory Results - last 24 hr 05/21/25 05/23/25 05/23/25 11: 06:25 13:05 WBC RBC Hgb Hct MCV MCH MCHC RDW Std Deviation Plt Count Neut % (Auto) Lymph % (Auto) [place] % (Auto) Eos % (Auto) Baso % (Auto) Neut # (Auto) Lymph # (Auto) [place] # (Auto) Eos # (Auto) Baso # (Auto) Immature Gran # (Auto) Absolute Nucleated RBC Immature Gran % Nucleated RBC % Smear Path Review Sent to Pathologist Puncture Site Left Radial ABG pH 7.48 H ABG pCO2 42 ABG pO2 56 L* D ABG HCO3 31 H ABG O2 Saturation 92 ABG Base Excess 7 H FiO2 35 Sodium Potassium Chloride Carbon Dioxide Anion Gap BUN Creatinine Estim Creat Clear Calc eGFR BUN/Creatinine Ratio Glucose Calculated Osmolality Calcium Corrected Calcium Phosphorus Magnesium Total Bilirubin AST ALT Alkaline Phosphatase Total Protein Albumin Globulin Albumin/Globulin Ratio Ur Collection Type Urine Color Urine Clarity Urine pH Ur Specific [place] Urine Protein Urine Glucose (UA) Urine Ketones Urine Blood Urine Nitrite Urine Bilirubin Urine Urobilinogen (Auto) Ur Leukocyte Esterase Urine RBC Urine WBC Ur Squamous Epith Cells Amorphous Crystals Urine Bacteria Vancomycin Trough Coccidioides IgG Ab Negative 05/23/25 05/23/25 05/23/25 18:25 21:29 22:03 WBC RBC Hgb Hct MCV MCH MCHC RDW Std Deviation Plt Count Neut % (Auto) Lymph % (Auto) [place] % (Auto) Eos % (Auto) Baso % (Auto) Neut # (Auto) Lymph # (Auto) [place] # (Auto) Eos # (Auto) Baso # (Auto) Immature Gran # (Auto) Absolute Nucleated RBC Immature Gran % Nucleated RBC % Smear Path Review Puncture Site Right Radial ABG pH 7.46 H ABG pCO2 46 ABG pO2 70 L ABG HCO3 32 H ABG O2 Saturation 95 ABG Base Excess 7 H FiO2 65 Sodium 151 H Potassium 4.4 Chloride 110 H Carbon Dioxide 29.4 Anion Gap 12 BUN 12 Creatinine 0.9 Estim Creat Clear Calc 205.5 eGFR > 60 BUN/Creatinine Ratio 13 Glucose 112 H Calculated Osmolality 300 H Calcium 9.9 Corrected Calcium 9.9 Phosphorus 2.2 L Magnesium Total Bilirubin AST ALT Alkaline Phosphatase Total Protein Albumin 4.4 Globulin Albumin/Globulin Ratio Ur Collection Type Urine Color Urine Clarity Urine pH Ur Specific [place] Urine Protein Urine Glucose (UA) Urine Ketones Urine Blood Urine Nitrite Urine Bilirubin Urine Urobilinogen (Auto) Ur Leukocyte Esterase Urine RBC Urine WBC Ur Squamous Epith Cells Amorphous Crystals Urine Bacteria Vancomycin Trough 6.0 Coccidioides IgG Ab 05/24/25 05/24/25 05/24/25 00:16 04:25 09:15 WBC 12.1 H RBC 4.16 L Hgb 12.4 L Hct 39.7 L MCV 95 MCH 29.8 MCHC 31.2 RDW Std Deviation 47.8 H Plt Count 162 D Neut % (Auto) 55 Lymph % (Auto) 23 [place] % (Auto) 10 Eos % (Auto) 0 Baso % (Auto) 1 Neut # (Auto) 6.6 Lymph # (Auto) 2.7 [place] # (Auto) 1.2 H Eos # (Auto) 0.1 Baso # (Auto) 0.1 Immature Gran # (Auto) 1.50 H Absolute Nucleated RBC 0.00 Immature Gran % 12 H Nucleated RBC % 0 Smear Path Review Puncture Site ABG pH ABG pCO2 ABG pO2 ABG HCO3 ABG O2 Saturation ABG Base Excess FiO2 Sodium 153 H 152 H Potassium 4.5 4.5 Chloride 111 H 113 H Carbon Dioxide 29.8 27.5 Anion Gap 12 12 BUN 17 11 Creatinine 0.8 0.8 Estim Creat Clear Calc 231.2 229.6 eGFR > 60 > 60 BUN/Creatinine Ratio 21 H 14 Glucose 101 108 H Calculated Osmolality 305 H 302 H Calcium 8.9 8.8 Corrected Calcium 8.9 8.8 Phosphorus 4.3 Magnesium 2.1 Total Bilirubin 0.3 0.3 AST 77 H 75 H ALT 35 31 Alkaline Phosphatase 50 47 Total Protein 6.7 6.9 Albumin 4.2 4.0 Globulin 2.5 2.9 Albumin/Globulin Ratio 1.7 1.4 Ur Collection Type Catheter Urine Color Yellow Urine Clarity Clear Urine pH 6.5 Ur Specific [place] 1.028 Urine Protein 2+ A Urine Glucose (UA) Negative Urine Ketones Negative Urine Blood 2+ A Urine Nitrite Negative Urine Bilirubin Negative Urine Urobilinogen (Auto) Negative Ur Leukocyte Esterase Negative Urine RBC 178 H Urine WBC 4 Ur Squamous Epith Cells 0 Amorphous Crystals Present A Urine Bacteria None Vancomycin Trough Coccidioides IgG Ab ABG Interpretation ABG results: 05/20/25 05/21/25 05/21/25 22:58 03:36 07:36 ABG pH 7.20 L 7.44 D ABG pCO2 77 H* 40 D ABG pO2 67 L 240 H D ABG HCO3 30 H 27 H ABG O2 Saturation 90 L 101 H ABG Base Excess 0 3 VBG pH 7.36 VBG pCO2 50 VBG pO2 50 VBG Base Excess 2 05/21/25 05/21/25 05/21/25 11:08 17:27 18:20 ABG pH 7.41 7.30 L D 7.35 ABG pCO2 46 56 H D 54 H ABG pO2 172 H D 61 L D 107 D ABG HCO3 29 H 27 H 30 H ABG O2 Saturation 100 H 89 L 100 H ABG Base Excess 4 H 0 3 VBG pH VBG pCO2 VBG pO2 VBG Base Excess 05/22/25 05/22/25 05/23/25 05:03 18:41 05:03 ABG pH 7.36 7.37 7.40 ABG pCO2 52 H 53 H 50 H ABG pO2 92 61 L D 82 L D ABG HCO3 29 H 30 H 31 H ABG O2 Saturation 99 H 91 99 H ABG Base Excess 3 4 H 5 H VBG pH VBG pCO2 VBG pO2 VBG Base Excess 05/23/25 05/23/25 13:05 22:03 ABG pH 7.48 H 7.46 H ABG pCO2 42 46 ABG pO2 56 L* D 70 L ABG HCO3 31 H 32 H ABG O2 Saturation 92 95 ABG Base Excess 7 H 7 H VBG pH VBG pCO2 VBG pO2 VBG Base Excess Quality Measures Quality Measures sepsis Current suspected stage: sepsis Possible source: pulmonary Blood cultures ordered: yes Antibiotic ordered: Yes Assessment & Plan Assessment Current Active Medications: Generic Name Dose Route Start Last Admin Trade Name Freq PRN Reason Stop Dose Admin Acetaminophen 650 mg 05/21/25 00:37 Acetaminophen 325 Mg Tablet PO 06/20/25 00:36 Q6H PRN Fever >100.4 or pain 1-3 Hydrocodone Bitart/Acetaminophen 1 tab 05/21/25 00:42 Hydrocodone/Apap 5/325 Tablet PO 05/26/25 00:41 Q4HR PRN PAIN SCALE 4-6 (Moderate Protocol Albuterol/Ipratropium 3 ml 05/21/25 03:00 05/24/25 06:49 Albuterol/Ipratropium (Duoneb) Rt Jannie 3 Ml Nebu INH 06/20/25 02:59 3 ml Q4HRRT ANANDA Administration Bupropion HCl 300 mg 05/23/25 11:15 05/23/25 12:11 Bupropion Hcl Xl 150 Mg Tabcr PO 06/22/25 11:14 Not Given QDAY ANANDA Clozapine 450 mg 05/22/25 21:00 05/22/25 21:13 Clozapine 50 Mg Tablet NG 06/21/25 20:59 450 mg On Hold: 05/24/25 10:04 HS ANANDA Administration Divalproex Sodium 750 mg 05/24/25 21:00 Divalproex Sod Er 250 Mg Rosanne (Non-Formulary) PO 06/23/25 20:59 HS ANANDA Protocol Enoxaparin Sodium 40 mg 05/21/25 10:45 05/24/25 08:17 Enoxaparin Sod Inj 40 Mg/0.4 Ml Syringe SC 06/04/25 10:44 40 mg BID ANANDA Administration Famotidine 20 mg 05/21/25 09:00 05/24/25 08:17 Famotidine Inj 10 Mg/Ml Vial 2 Ml IVP 06/20/25 08:59 20 mg Q12HR ANANDA Administration Gemfibrozil 600 mg 05/22/25 11:00 05/23/25 21:45 Gemfibrozil 600 Mg Tablet PO 06/21/25 10:59 Not Given BID ANANDA Ceftriaxone Sodium/Dextrose 1 gm in 50 mls @ 100 mls/hr 05/21/25 21:00 05/24/25 03:56 Rocephin/D5w 1gm Iv Premix IV 05/28/25 20:59 Infused QDAY@2100 ANANDA Infusion Norepinephrine/Dextrose 8 mg in 250 mls @ 14.857 mls/hr 05/21/25 04:20 Levophed In D5w 8mg/250ml IV 06/20/25 04:19 .[id number] PRN PER PROTOCOL Protocol 0.05 MCG/KG/MIN Propofol 1,000 mg in 100 mls @ 4.754 mls/hr 05/22/25 18:25 05/23/25 08:12 Diprivan Ivpb IV 06/20/25 17:08 0 mcg/kg/min .Q21H3M PRN 0 mls/hr PER PROTOCOL Titration Protocol 5 MCG/KG/MIN Fentanyl Citrate 2,500 mcg in 250 mls @ 2.5 mls/hr 05/22/25 18:25 05/23/25 16:00 Sublimaze Inj 2,500 Mcg/250 Ml Bag IV 05/26/25 04:19 0 mcg/hr .Q24H PRN 0 mls/hr PER PROTOCOL Titration Protocol 25 MCG/HR Dexmedetomidine/Sodium Chloride 400 mcg in 100 mls @ 7.94 mls/hr 05/23/25 09:36 05/23/25 16:00 Precedex Ivpb IV 06/22/25 09:34 0 mcg/kg/hr .[id number] PRN 0 mls/hr Per PROTOCOL Titration Protocol 0.2 MCG/KG/HR Dextrose 1,000 mls @ 100 mls/hr 05/24/25 01:15 05/24/25 02:31 D5w IV 06/23/25 01:14 100 mls/hr .Q10H ANANDA Administration Vancomycin HCl/Dextrose 300 mls @ 120 mls/hr 05/24/25 06:30 05/24/25 08:09 Vancomycin/D5w 1500 Mg Ivpb IV 05/31/25 06:29 120 mls/hr Q8HR ANANDA Administration Protocol Labetalol HCl 10 mg 05/24/25 10:10 Labetalol Inj 5 Mg/Ml Vial 4 Ml IVP 06/23/25 10:09 Q4HR PRN SBP>180 Kapalua Carbonate 300 mg 05/24/25 10:15 05/24/25 10:42 Kapalua Carb 150 Mg Capsule PO 06/23/25 10:14 300 mg QDAY ANANDA Administration Methylprednisolone Sodium Succinate 40 mg 05/24/25 12:00 Methylprednisolone Sod Succ 40 Mg/Ml Vial IVP 05/31/25 11:59 Q6HR ANANDA Nicotine 14 mg 05/21/25 09:00 05/24/25 08:17 Nicotine Patch 14 Mg/24 Hr Patch.Td24 TOP 06/20/25 08:59 14 mg QDAY ANANDA Administration Ondansetron HCl 4 mg 05/21/25 00:37 Ondansetron Inj 2 Mg/Ml Inj 2 Ml IVP 06/20/25 00:36 Q6H PRN NAUSEA OR VOMITING Protocol Pharmacy Consult 1 each 05/22/25 09:00 Vancomycin Pharmacy To Dose 1 Each Each IV 06/21/25 08:59 QDAY PRN PNEUMONIA Prazosin HCl 1 mg 05/21/25 21:00 05/23/25 21:46 Prazosin Hcl 1 Mg Capsule PO 06/20/25 20:59 Not Given HS ANANDA Sennosides 8.8 mg 05/22/25 09:00 05/24/25 08:26 Sennosides Syrup 8.8 Mg/5 Ml Udc PO 06/21/25 08:59 Not Given QDAY ANANDA Protocol Plan This patient is a 20-year-old male with past medical history of tpi-aonmcbl-hwuoeutzm type 2 diabetes, morbid obesity, schizoaffective disorder follows Dr. Gomes psychiatrist in [place] was admitted on floor on 05/21/2025 with chief complaint of 3 to 4 days of diarrhea associated with vomiting.Patient was admitted initially on floor for sepsis rule out most likely secondary to pneumonia versus possible GI infection and eventually upgraded to ICU due to acute hypoxic hypercapnic respiratory failure due to related to community- acquired pneumonia in the setting of morbid obesity. Neurology #Acute encephalopathy, resolved DDx: Hypercapnia, acidosis, polypharmacy on multiple psych meds -U tox was negative. Etoh negative Rx -Treating with antibiotics #History of schizoaffective disorder Dx - Patient has a longstanding history of schizoaffective disorder. Follows psychiatrist, Dr. Gomes in [place] who sees patients biweekly on Zoom and monthly in person. - Patient lithium levels noted to be 1.24 on 05/21 Rx -Continue with prazosin 1 mg at bedtime -Continue valproic acid -Resumed home olanzapine 20 mg daily -Will plan to resume home lithium at 300 mg daily -Buproprion 300 mg daily -Holding clozapine for today #History of vaping -Patient currently vapes all day, uses [employer] vapes -Per patient's partner, the patient has been vaping for at least 3 years, and has been smoking prior to that Rx -Nicotine patch -Counseled patient on vaping cessation as vaping may have contributed to the patient's extensive lung injury Cardiovascular #Hypotension, resolved - Patient met 3/4 SIRS criteria with tachycardia tachypnea and fever with possible source of infection pneumonia versus GI infection. - Patient was placed on BiPAP in ED to help with work of breathing, eventually intubated DDx: Distributive, hypovolemic (likely distributive given active bacteremia, but also possible hypovolemia as patient did have >3.5L urine output on 05/21) Dx: -Chest x-ray showed bibasilar pneumonia. -CT chest showed bilateral lower lobe pneumonia with hepatomegaly. -Procal 0.24 -Patient noted to become hypotensive overnight from 05/21-05/22, not yet requiring vasopressors to maintain MAP >65 -Sputum culture collected 05/21, shows mixed dwayne -Blood cultures collected 05/20 preliminary results show gram positive cocci resembling staph and gram negative rods in both bottles; repeat blood cultures negative -Bronchial lavage cultures collected 05/22, pending Rx -Continue with Rocephin and vancomycin -Prednisone 50 mg daily -DuoNebs as needed #NSTEMI type II - Mild elevation in troponin I 0.092. Patient denied any chest pain prior to AMS. Downtrended to 0.059. #Cardiomegaly Dx: -CT chest 05/21 showed enlarged heart -Echocardiogram 05/21 showed enlarged heart that is upper limit of normal range Rx: -Patient to follow up outpatient Respiratory #Acute hypercapnic hypoxic respiratory failure, improving #Intubated with mechanical ventilation s/p extubation 05/23 #s/p bronchoscopy 05/22 DDx: Community-acquired pneumonia, morbid obesity, polypharmacy, cocci -Patient met 3/4 SIRS criteria with tachycardia tachypnea and fever he was on BiPAP when he presented with possible source of fracture pneumonia confirmed on chest x-ray. Dx: -Chest x-ray revealed bibasilar pneumonia which was also seen on CT chest. -ABGs showed pH 7.20, pCO2 77, pO2 67. -Patient is intubated with ET tube 8.5 at 23 cm with etomidate 40 and succinylcholine 100 by ED physician -Post chest x-ray was followed showed satisfactory ET tube position and OG pressures -CT chest 05/20 shows extensive bilateral pneumonia -ABG on 05/21 in the a.m. shows improvement of hypercapnea -Cocci IgM negative -Sputum culture collected 05/21, shows mixed dwayne -Blood cultures collected 05/20 preliminary results show gram positive cocci resembling staph and gram negative rods in both bottles; repeat blood cultures negative -Bronchial lavage cultures collected 05/22, pending -s/p bronchoscopy 05/22, which found erythematous and friable airways without clear obstructions -Bronchial lavage cultures collected 05/22, pending -Patient extubated 05/23 Rx -Levophed added if MAP drops below 65 -Treat underlying pneumonia with ceftriaxone and vancomycin -Prednisone 50 mg daily -DuoNebs as needed -DIRK and ANCA ordered, pending -Encouraged vaping cessation GI and F/E/N #Hepatosplenomegaly #Transaminitis DDx: MASLD Dx: -As noted in abdomen ultrasound on 2021 -CT chest 05/21 identified hepatomegaly with fatty infiltration, irregular liver contour, and with splenomegaly -AST 53, ALT 49, and ALP 49 on admission to ICU, noted elevations in AST and ALT since 2021 -Patient does take olanzapine at home, which is noted to increase liver enzymes -Hepatitis panel ordered 05/22, negative Rx: -Patient to follow up with outpatient GI #Intractable nausea and vomiting DDx: Viral gastroenteritis -Multiple episodes of diarrhoea and vomiting; multiple episodes without blood Rx -Supportive care - IV fluids [3 L bolus given x 1] -On antibiotics Rxx -Follow-up with stool studies #Abdominal boil -Patient has a boil on the pannus. Not draining. Rx -Closely monitor for drainage Renal #ELIECER, resolved DDx: Septic ELIECER, prerenal -Creatinine 1.2 baseline 0.8 on admission to ICU -Creatinine improved to 1.0 on 05/21, continues to have good urine output -> 05/22 creatinine worsened to 1.6 and urine output significantly decreased 05/21- 05/22 overnight Rx - Avoid nephrotoxic agents - Renally dose medication - Strict intake and output #Proteinuria, resolved DDx: Nephrotic syndrome, nephritic syndrome Dx: -Patient noted to have UA positive for 3+ protein on admission to ICU -Urine creatinine collected 05/21 noted to be 622 and urine total protein noted to be >250 -Repeat urine creatinine and urine protein within normal range Rx: -Patient to follow up outpatient #Polyuria DDx: Diabetes insipidus, diabetes mellitus, IV fluid hydration Dx: -Patient does take lithium at home and has been noted to frequently use restroom to urinate at home -Patient received multiple liters of fluid prior to ICU upgrade -Patient produced about 3.5 L of urine on 05/21 without use of any diuretic -UA positive for 3+ protein Rx: -Daily CMP -Encourage oral hydration as patient urinates out significant volume #Hypernatremia Dx: -Likely secondary to dehydration as patient drinks significant amount of water at home Rx: -D5W -Encourage oral fluid intake Heme #Normocytic anemia Dx -Hemoglobin 12.2 Rx -PRBC if hemoglobin drop below 7 Rxx - Daily labs Endo #History of pre-diabetes -Patient was taking metformin at home Dx: -A1c 5.5 Rx - Blood sugar checks Q6 hourly #Hypertriglyceridemia Dx -Triglycerides noted to be 305 on 05/22 Rx -Gemfibrozil 600 mg every 12 hours -Patient to follow up outpatient ID #Community-acquired pneumonia #Gram positive cocci & gram negative rods 2/2 blood cultures Dx -Chest x-ray showed bibasilar pneumonia. -CT chest showed bilateral lower lobe pneumonia with hepatomegaly. -Procal 0.24 -No white count elevation seen -Sputum culture collected 05/21, shows mixed dwayne -Blood cultures collected 05/20 preliminary results show gram positive cocci resembling staph and gram negative rods in both bottles; repeat blood cultures negative -Bronchial lavage cultures collected 05/22, pending Rx -Continue with IV Rocephin [05/21?] and azithromycin [05/21?05/23] -Vancomycin to cover for possible MRSA [05/22-] Rxx - Follow-up blood cultures, sputum cultures and MRSA screen ICU health Maintenance: DVT prophylaxis: Lovenox 40 BID SQ (dosed for BMI) GI prophylaxis: Protonix 40 mg IV daily Diet: NPO Graves: PLACED Lines: Peripherals Drips: N/A Vent: N/A CODE STATUS: Full code Reason of hospitalization: Patient is upgraded to ICU for acute encephalopathy and acute hypoxic hypercapnic respiratory failure due to community-acquired pneumonia in setting of morbid obesity. Patient discussed with my attending, Dr. Hough, and senior resident Dr. Sauer (PGY-2) Marcelino Weinstein, PGY-1
--- NOTE | 2025-05-24 15:22 | ESPR_ITS ---
Documentation for date of: 05/24/25 Subjective Subjective Interval history: Patient is an ICU downgrade to Team A today. In short, patient is a 20-year-old male with past medical history of prediabetes, morbid obesity, schizoaffective disorder, and bipolar disorder following with Dr. Gomes in [place] who was admitted to the medical floors on 05/21/2025 after 4 days of nausea, vomiting, and diarrhea and found to have significant bilateral pneumonia. Patient quickly became hypoxic and hypercapneic unable to be treated with the BiPAP due to confusion and increased work of breathing therefore patient was intubated and brought to the ICU later the same night. Patient was extubated yesterday evening to high flow nasal cannula and was weaned down today to 5L O2 on regular cannula, found to be mentating back to baseline. Patient was treated with antibiotics, currently on IV ceftriaxone [05/21- ] and vancomycin [05/22- ]. The blood cultures obtained from 05/20/2025 are showing preliminary gram negative rods and gram positive cocci resembling staph still awaiting final speciation. Sputum culture, blood culture from 05/22, and bronchial washings culture from 05/22 are negative. Bronchoscopy was done 05/22 due to desaturation event requiring 100% FiO2 and manual bagging at one point. The bronch showed extensive erythema and edema with narrowing of the airways on the L with some purulent discharge noted, there was some bleeding with lavage noted. It was questioned why the patient developed such an extensive pneumonia with his age, and possibilities including autoimmune disease and vape-associated lung injury were brought into question. Patient is to continue antibiotics pending final culture speciation, continue weaning down O2, and taper down IV steroids, and continue home psych medications. Exam Vital Signs Temp Pulse Resp BP Pulse Ox O2 Del Method O2 Flow Rate 97.5 F 94 20 165/97 H 96 High Flow Nasal Cannula 5 05/24/25 12:00 05/24/25 15:00 05/24/25 15:00 05/24/25 15:00 05/24/25 15:00 05/24/25 04:00 05/24/25 14:33 FiO2 40 05/24/25 14:00 Objective Labs 05/24/25 04:25 05/24/25 04:25 Labs: Laboratory Results - last 24 hr 05/23/25 05/23/25 05/23/25 06:25 18:25 21:29 WBC RBC Hgb Hct MCV MCH MCHC RDW Std Deviation Plt Count Neut % (Auto) Lymph % (Auto) [place] % (Auto) Eos % (Auto) Baso % (Auto) Neut # (Auto) Lymph # (Auto) [place] # (Auto) Eos # (Auto) Baso # (Auto) Immature Gran # (Auto) Absolute Nucleated RBC Immature Gran % Nucleated RBC % Smear Path Review Sent to Pathologist Puncture Site ABG pH ABG pCO2 ABG pO2 ABG HCO3 ABG O2 Saturation ABG Base Excess FiO2 Sodium 151 H Potassium 4.4 Chloride 110 H Carbon Dioxide 29.4 Anion Gap 12 BUN 12 Creatinine 0.9 Estim Creat Clear Calc 205.5 eGFR > 60 BUN/Creatinine Ratio 13 Glucose 112 H Calculated Osmolality 300 H Calcium 9.9 Corrected Calcium 9.9 Phosphorus 2.2 L Magnesium Total Bilirubin AST ALT Alkaline Phosphatase Total Protein Albumin 4.4 Globulin Albumin/Globulin Ratio Ur Collection Type Urine Color Urine Clarity Urine pH Ur Specific [place] Urine Protein Urine Glucose (UA) Urine Ketones Urine Blood Urine Nitrite Urine Bilirubin Urine Urobilinogen (Auto) Ur Leukocyte Esterase Urine RBC Urine WBC Ur Squamous Epith Cells Amorphous Crystals Urine Bacteria Vancomycin Trough 6.0 05/23/25 05/24/25 05/24/25 22:03 00:16 04:25 WBC 12.1 H RBC 4.16 L Hgb 12.4 L Hct 39.7 L MCV 95 MCH 29.8 MCHC 31.2 RDW Std Deviation 47.8 H Plt Count 162 D Neut % (Auto) 55 Lymph % (Auto) 23 [place] % (Auto) 10 Eos % (Auto) 0 Baso % (Auto) 1 Neut # (Auto) 6.6 Lymph # (Auto) 2.7 [place] # (Auto) 1.2 H Eos # (Auto) 0.1 Baso # (Auto) 0.1 Immature Gran # (Auto) 1.50 H Absolute Nucleated RBC 0.00 Immature Gran % 12 H Nucleated RBC % 0 Smear Path Review Puncture Site Right Radial ABG pH 7.46 H ABG pCO2 46 ABG pO2 70 L ABG HCO3 32 H ABG O2 Saturation 95 ABG Base Excess 7 H FiO2 65 Sodium 153 H 152 H Potassium 4.5 4.5 Chloride 111 H 113 H Carbon Dioxide 29.8 27.5 Anion Gap 12 12 BUN 17 11 Creatinine 0.8 0.8 Estim Creat Clear Calc 231.2 229.6 eGFR > 60 > 60 BUN/Creatinine Ratio 21 H 14 Glucose 101 108 H Calculated Osmolality 305 H 302 H Calcium 8.9 8.8 Corrected Calcium 8.9 8.8 Phosphorus 4.3 Magnesium 2.1 Total Bilirubin 0.3 0.3 AST 77 H 75 H ALT 35 31 Alkaline Phosphatase 50 47 Total Protein 6.7 6.9 Albumin 4.2 4.0 Globulin 2.5 2.9 Albumin/Globulin Ratio 1.7 1.4 Ur Collection Type Urine Color Urine Clarity Urine pH Ur Specific [place] Urine Protein Urine Glucose (UA) Urine Ketones Urine Blood Urine Nitrite Urine Bilirubin Urine Urobilinogen (Auto) Ur Leukocyte Esterase Urine RBC Urine WBC Ur Squamous Epith Cells Amorphous Crystals Urine Bacteria Vancomycin Trough 05/24/25 09:15 WBC RBC Hgb Hct MCV MCH MCHC RDW Std Deviation Plt Count Neut % (Auto) Lymph % (Auto) [place] % (Auto) Eos % (Auto) Baso % (Auto) Neut # (Auto) Lymph # (Auto) [place] # (Auto) Eos # (Auto) Baso # (Auto) Immature Gran # (Auto) Absolute Nucleated RBC Immature Gran % Nucleated RBC % Smear Path Review Puncture Site ABG pH ABG pCO2 ABG pO2 ABG HCO3 ABG O2 Saturation ABG Base Excess FiO2 Sodium Potassium Chloride Carbon Dioxide Anion Gap BUN Creatinine Estim Creat Clear Calc eGFR BUN/Creatinine Ratio Glucose Calculated Osmolality Calcium Corrected Calcium Phosphorus Magnesium Total Bilirubin AST ALT Alkaline Phosphatase Total Protein Albumin Globulin Albumin/Globulin Ratio Ur Collection Type Catheter Urine Color Yellow Urine Clarity Clear Urine pH 6.5 Ur Specific [place] 1.028 Urine Protein 2+ A Urine Glucose (UA) Negative Urine Ketones Negative Urine Blood 2+ A Urine Nitrite Negative Urine Bilirubin Negative Urine Urobilinogen (Auto) Negative Ur Leukocyte Esterase Negative Urine RBC 178 H Urine WBC 4 Ur Squamous Epith Cells 0 Amorphous Crystals Present A Urine Bacteria None Vancomycin Trough ABG Interpretation ABG results: 05/20/25 05/21/25 05/21/25 22:58 03:36 07:36 ABG pH 7.20 L 7.44 D ABG pCO2 77 H* 40 D ABG pO2 67 L 240 H D ABG HCO3 30 H 27 H ABG O2 Saturation 90 L 101 H ABG Base Excess 0 3 VBG pH 7.36 VBG pCO2 50 VBG pO2 50 VBG Base Excess 2 05/21/25 05/21/25 05/21/25 11:08 17:27 18:20 ABG pH 7.41 7.30 L D 7.35 ABG pCO2 46 56 H D 54 H ABG pO2 172 H D 61 L D 107 D ABG HCO3 29 H 27 H 30 H ABG O2 Saturation 100 H 89 L 100 H ABG Base Excess 4 H 0 3 VBG pH VBG pCO2 VBG pO2 VBG Base Excess 05/22/25 05/22/25 05/23/25 05:03 18:41 05:03 ABG pH 7.36 7.37 7.40 ABG pCO2 52 H 53 H 50 H ABG pO2 92 61 L D 82 L D ABG HCO3 29 H 30 H 31 H ABG O2 Saturation 99 H 91 99 H ABG Base Excess 3 4 H 5 H VBG pH VBG pCO2 VBG pO2 VBG Base Excess 05/23/25 05/23/25 13:05 22:03 ABG pH 7.48 H 7.46 H ABG pCO2 42 46 ABG pO2 56 L* D 70 L ABG HCO3 31 H 32 H ABG O2 Saturation 92 95 ABG Base Excess 7 H 7 H VBG pH VBG pCO2 VBG pO2 VBG Base Excess Quality Measures Quality Measures sepsis Current suspected stage: ruled out Possible source: pulmonary Blood cultures ordered: yes Antibiotic ordered: Yes Assessment & Plan Assessment Current Active Medications: Generic Name Dose Route Start Last Admin Trade Name Freq PRN Reason Stop Dose Admin Acetaminophen 650 mg 05/21/25 00:37 Acetaminophen 325 Mg Tablet PO 06/20/25 00:36 Q6H PRN Fever >100.4 or pain 1-3 Hydrocodone Bitart/Acetaminophen 1 tab 05/21/25 00:42 Hydrocodone/Apap 5/325 Tablet PO 05/26/25 00:41 Q4HR PRN PAIN SCALE 4-6 (Moderate Protocol Albuterol/Ipratropium 3 ml 05/21/25 03:00 05/24/25 14:32 Albuterol/Ipratropium (Duoneb) Rt Jannie 3 Ml Nebu INH 06/20/25 02:59 Not Given Q4HRRT ANANDA Bupropion HCl 300 mg 05/23/25 11:15 05/23/25 12:11 Bupropion Hcl Xl 150 Mg Tabcr PO 06/22/25 11:14 Not Given QDAY ANANDA Clozapine 450 mg 05/22/25 21:00 05/22/25 21:13 Clozapine 50 Mg Tablet NG 06/21/25 20:59 450 mg On Hold: 05/24/25 10:04 HS ANANDA Administration Divalproex Sodium 750 mg 05/24/25 21:00 Divalproex Sod Er 250 Mg Rosanne (Non-Formulary) PO 06/23/25 20:59 HS ANANDA Protocol Enoxaparin Sodium 40 mg 05/21/25 10:45 05/24/25 08:17 Enoxaparin Sod Inj 40 Mg/0.4 Ml Syringe SC 06/04/25 10:44 40 mg BID ANANDA Administration Famotidine 20 mg 05/21/25 09:00 05/24/25 08:17 Famotidine Inj 10 Mg/Ml Vial 2 Ml IVP 06/20/25 08:59 20 mg Q12HR ANANDA Administration Gemfibrozil 600 mg 05/22/25 11:00 05/23/25 21:45 Gemfibrozil 600 Mg Tablet PO 06/21/25 10:59 Not Given BID ANANDA Ceftriaxone Sodium/Dextrose 1 gm in 50 mls @ 100 mls/hr 05/21/25 21:00 05/24/25 03:56 Rocephin/D5w 1gm Iv Premix IV 05/28/25 20:59 Infused QDAY@2100 ANANDA Infusion Fentanyl Citrate 2,500 mcg in 250 mls @ 2.5 mls/hr 05/22/25 18:25 05/23/25 16:00 Sublimaze Inj 2,500 Mcg/250 Ml Bag IV 05/26/25 04:19 0 mcg/hr .Q24H PRN 0 mls/hr PER PROTOCOL Titration Protocol 25 MCG/HR Dextrose 1,000 mls @ 100 mls/hr 05/24/25 01:15 05/24/25 13:44 D5w IV 06/23/25 01:14 100 mls/hr .Q10H ANANDA Administration Vancomycin HCl/Dextrose 300 mls @ 120 mls/hr 05/24/25 06:30 05/24/25 08:09 Vancomycin/D5w 1500 Mg Ivpb IV 05/31/25 06:29 120 mls/hr Q8HR ANANDA Administration Protocol Labetalol HCl 10 mg 05/24/25 10:10 Labetalol Inj 5 Mg/Ml Vial 4 Ml IVP 06/23/25 10:09 Q4HR PRN SBP>180 [place] Carbonate 300 mg 05/24/25 10:15 05/24/25 10:42 [place] Carb 150 Mg Capsule PO 06/23/25 10:14 300 mg QDAY ANANDA Administration Methylprednisolone Sodium Succinate 40 mg 05/24/25 12:00 Methylprednisolone Sod Succ 40 Mg/Ml Vial IVP 05/31/25 11:59 Q6HR ANANDA Nicotine 14 mg 05/21/25 09:00 05/24/25 08:17 Nicotine Patch 14 Mg/24 Hr Patch.Td24 TOP 06/20/25 08:59 14 mg QDAY ANANDA Administration Ondansetron HCl 4 mg 05/21/25 00:37 Ondansetron Inj 2 Mg/Ml Inj 2 Ml IVP 06/20/25 00:36 Q6H PRN NAUSEA OR VOMITING Protocol Pharmacy Consult 1 each 05/22/25 09:00 Vancomycin Pharmacy To Dose 1 Each Each IV 06/21/25 08:59 QDAY PRN PNEUMONIA Prazosin HCl 1 mg 05/21/25 21:00 05/23/25 21:46 Prazosin Hcl 1 Mg Capsule PO 06/20/25 20:59 Not Given HS ANANDA Sennosides 8.8 mg 05/22/25 09:00 05/24/25 08:26 Sennosides Syrup 8.8 Mg/5 Ml Udc PO 06/21/25 08:59 Not Given QDAY ANANDA Protocol Plan 20-year-old male with past medical history of non-insulin dependent type 2 diabetes, morbid obesity, schizoaffective disorder follows Dr. Gomes psychiatrist in [place] was admitted on floor on 05/21/2025 with chief complaint of 3 to 4 days of diarrhea associated with vomiting. Patient was admitted initially on floor for sepsis rule out most likely secondary to pneumonia versus possible GI infection and eventually upgraded to ICU due to acute hypoxic hypercapnic respiratory failure due to related to community-acquired pneumonia in the setting of morbid obesity. #Acute hypercapnic hypoxic respiratory failure, improving #Intubated with mechanical ventilation s/p extubation 05/23 #s/p bronchoscopy 05/22 #Community-acquired pneumonia #Gram positive cocci & gram negative rods 2/2 blood cultures DDx: Community-acquired pneumonia, morbid obesity, polypharmacy, cocci -Patient met 3/4 SIRS criteria with tachycardia tachypnea and fever he was on BiPAP when he presented with possible source of fracture pneumonia confirmed on chest x-ray. Dx: -Chest x-ray revealed bibasilar pneumonia which was also seen on CT chest. -ABGs showed pH 7.20, pCO2 77, pO2 67. -Patient is intubated with ET tube 8.5 at 23 cm with etomidate 40 and succinylcholine 100 by ED physician -Post chest x-ray was followed showed satisfactory ET tube position and OG pressures -CT chest 05/20 shows extensive bilateral pneumonia -ABG on 05/21 in the a.m. shows improvement of hypercapnea -Cocci IgM negative -Sputum culture collected 05/21, shows mixed dwayne -Blood cultures collected 05/20 preliminary results show gram positive cocci resembling staph and gram negative rods in both bottles; repeat blood cultures negative -Bronchial lavage cultures collected 05/22, pending -s/p bronchoscopy 05/22, which found erythematous and friable airways without clear obstructions -Bronchial lavage cultures collected 05/22, pending -Patient extubated 05/23 Rx -Continue with IV Rocephin [05/21?] -Completed 3 days of azithromycin [05/21?05/23] -Vancomycin to cover for possible MRSA [05/22-] -Prednisone 50 mg daily -DuoNebs as needed -DIRK and ANCA ordered, pending -Encouraged vaping cessation #History of schizoaffective disorder Dx - Patient has a longstanding history of schizoaffective disorder. Follows psychiatrist, Dr. Gomes in [place] who sees patients biweekly on Zoom and monthly in person. - Patient lithium levels noted to be 1.24 on 05/21 Rx -Continue with prazosin 1 mg at bedtime -Continue valproic acid -Resumed home olanzapine 20 mg daily -Will plan to resume home lithium at 300 mg daily -Buproprion 300 mg daily -Holding clozapine for today, resume tomorrow #History of vaping -Patient currently vapes all day, uses [employer] -Per patient's partner, the patient has been vaping for at least 3 years, and has been smoking prior to that Rx -Nicotine patch -Counseled patient on vaping cessation as vaping may have contributed to the patient's extensive lung injury #Cardiomegaly Dx: -CT chest 05/21 showed enlarged heart -Echocardiogram 05/21 showed enlarged heart that is upper limit of normal range Rx: -Patient to follow up outpatient #Hepatosplenomegaly #Transaminitis DDx: MASLD Dx: -As noted in abdomen ultrasound on 2021 -CT chest 05/21 identified hepatomegaly with fatty infiltration, irregular liver contour, and with splenomegaly -AST 53, ALT 49, and ALP 49 on admission to ICU, noted elevations in AST and ALT since 2021 -Patient does take olanzapine at home, which is noted to increase liver enzymes -Hepatitis panel ordered 05/22, negative Rx: -Patient to follow up with outpatient GI #Abdominal boil -Patient has a boil on the pannus. Not draining. Rx -Closely monitor for drainage #ELIECER, resolved DDx: Septic ELIECER, prerenal -Creatinine 1.2 baseline 0.8 on admission to ICU -Creatinine improved to 1.0 on 05/21, continues to have good urine output -> 05/22 creatinine worsened to 1.6 and urine output significantly decreased 05/21- 05/22 overnight Rx - Avoid nephrotoxic agents - Renally dose medication - Strict intake and output #Proteinuria, resolved DDx: Nephrotic syndrome, nephritic syndrome Dx: -Patient noted to have UA positive for 3+ protein on admission to ICU -Urine creatinine collected 05/21 noted to be 622 and urine total protein noted to be >250 -Repeat urine creatinine and urine protein within normal range Rx: -Patient to follow up outpatient #Polyuria DDx: Diabetes insipidus, diabetes mellitus, IV fluid hydration Dx: -Patient does take lithium at home and has been noted to frequently use restroom to urinate at home -Patient received multiple liters of fluid prior to ICU upgrade -Patient produced about 3.5 L of urine on 05/21 without use of any diuretic -UA positive for 3+ protein Rx: -Daily CMP -Encourage oral hydration as patient urinates out significant volume #Hypernatremia Dx: -Likely secondary to dehydration as patient drinks significant amount of water at home Rx: -D5W -Encourage oral fluid intake #Normocytic anemia Dx -Hemoglobin 12.2 Rx -PRBC if hemoglobin drop below 7 Rxx - Daily labs #History of pre-diabetes -Patient was taking metformin at home Dx: -A1c 5.5 Rx - Blood sugar checks Q6 hourly #Hypertriglyceridemia Dx -Triglycerides noted to be 305 on 05/22 Rx -Gemfibrozil 600 mg every 12 hours -Patient to follow up outpatient #Acute encephalopathy, resolved #Hypotension, resolved #NSTEMI type II #Intractable nausea and vomiting, resolved ICU health Maintenance: DVT prophylaxis: Lovenox 40 BID SQ (dosed for BMI) GI prophylaxis: Protonix 40 mg IV daily Diet: NPO [place]: PLACED Lines: Peripherals Drips: N/A Vent: N/A CODE STATUS: Full code Reason of hospitalization: Patient is downgraded to [facility] for community- acquired pneumonia in setting of morbid obesity. Patient plan of care was discussed with the attending physician, Dr. Bunch. Evie Oakes, PGY-3 Attending Provider Attestation/Addendum I have examined the patient, reviewed labs and imaging findings, discussed the case with the resident(s), and reviewed entered orders. I agree with the plan of care as outlined in this note. Dr. Alivia MD
[2025-05-24] MEDS: cefTRIAXone/D5w 1gm IV premix 1 GM/50 ML BAG IV (21:53)
[2025-05-24] MEDS: PRAZOSIN HCL 1 MG CAPSULE PO (21:54)
[2025-05-24] MEDS: DIVALPROEX SOD ER 250 MG TABER (NON-FORMULARY) 750 MG PO (21:56)
--- NOTE | 2025-05-24 23:24 | PC.NURSE ---
Pt's significant other requested clozapine pill since pt's started laughing for no reason, is restless and trying to get out of bed, Dr. Franklin was notified about the reuest and about pt's behavior, stated that they would check the chart and call me back.
[2025-05-25] VITALS (11 sets, daily range): BP systolic 129–173; BP diastolic 84–101; PULSE 70–104; RESP 16–24; TEMP 35.9–37.1; O2SAT 90–99
[2025-05-25] MEDS: ALBUTEROL/IPRATROPIUM (Duoneb) RT SOL 3 ML NEBU INH ×6 (02:39→22:55)
--- NOTE | 2025-05-25 07:23 | PC.NURSE ---
Vanco was not given since vanco trough results have not been posted yet. Day shift RN was made aware.
[2025-05-25] MEDS: FAMOTIDINE INJ 10 MG/ML VIAL 2 ML 20 MG IVP (09:36)
[2025-05-25] MEDS: LITHIUM CARB 150 MG CAPSULE 300 MG PO (09:37)
[2025-05-25] MEDS: NICOTINE PATCH 14 MG/24 HR PATCH.TD24 TOP (09:38)
[2025-05-25] MEDS: ENOXAPARIN SOD INJ 40 MG/0.4 ML SYRINGE SC ×2 (09:38→20:55)
[2025-05-25] MEDS: BuPROPion HCL XL 150 MG TABCR 300 MG PO (09:38)
[2025-05-25] MEDS: SENNOSIDES SYRUP 8.8 MG/5 ML UDC PO (09:39)
[2025-05-25 10:02] LABS: Alanine Aminotransferase 52 U/L (10-49); Albumin, Serum 4.5 gm/dL (3.5-5.0); Albumin/Globulin Ratio 1.4 (1.2-2.2); Alkaline Phosphatase 52 U/L (46-116); Anion Gap 11 (7-16); Aspartate Amino Transferase 85 U/L (0-34); BUN/Creatinine Ratio 20 Ratio (12-20); Bilirubin,Total 0.5 mg/dL (0.3-1.2); Blood Urea Nitrogen 12 mg/dL (9-23); Calcium 9.6 mg/dL (8.3-10.6); Calcium (Corrected) 9.6 mg/dL (8.5-10.1); Carbon Dioxide 28.4 mMol/L (20.0-31.0); Chloride 105 mMol/L (98-107); Creatinine (Component) 0.6 mg/dL (0.6-1.3); Estimated Creatinine Clearance 306.1 mL/min (>60); Globulin 3.2 gm/dL (2.3-3.5); Glucose 160 mg/dL (74-106); Magnesium 2.5 mg/dL (1.6-2.6); Osmolality,Calculated 289 (275-295); Phosphorous 3.8 mg/dL (2.4-5.1); Potassium 5.1 mMol/L (3.4-5.1); Sodium 144 mMol/L (136-145); Total Protein 7.7 gm/dL (5.7-8.2); Vancomycin,Trough 5.3 mcg/mL (5.0-10.0); eGFR > 60 See Note
[2025-05-25] MEDS: DEXTROSE 5%-WATER 1,000 ML 100 ML IV (10:21)
--- NOTE | 2025-05-25 10:55 | PC.SS ---
SS follow up note; Patient was downgraded from ICU. Patient is currently on IV ABX. Patient will discharge back home when medically cleared.
[2025-05-25 13:57] LABS: Basophils # (Auto) 0.2 Thou/mm3 (0.0-0.2); Basophils % (Auto) 2 % (0-2.5); Eosinophils # (Auto) 0.0 Thou/mm3 (0.0-0.5); Eosinophils % (Auto) 0 % (0-10); Hematocrit 41.7 % (41.0-53.0); Hemoglobin 13.8 g/dL (13.5-16.0); Immature Granulocytes Auto 1.31 Thou/mm3 (0.00-0.00); Lymphocytes # (Auto) 1.4 Thou/mm3 (1.0-4.8); Lymphocytes % (Auto) 11 % (10-50); Mean Corpuscular HGB Conc 33.1 g/dl (31.0-37.0); Mean Corpuscular Hemoglobin 30.2 pg (25.0-35.0); Mean Corpuscular Volume 91 fL (80-100); Monocytes # (Auto) 0.8 Thou/mm3 (0.0-0.8); Monocytes % (Auto) 6 % (0-12); Neutrophils # (Auto) 9.9 Thou/mm3 (1.8-7.7); Neutrophils % (Auto) 73 % (37-80); Nucleated Red Blood Cell # 0.00 Thou/mm3 (0.00-0.00); Nucleated Red Blood Cell % 0 /100 WBC (0); Platelet Count 313 Thou/mm3 (140-440); RDW Standard Deviation 41.4 fL (35.1-43.9); Red Blood Count 4.57 Miln/mm3 (4.50-5.90); White Blood Count 13.6 Thou/mm3 (3.8-10.6)
--- NOTE | 2025-05-25 14:31 | PD.RESPRO ---
Documentation for date of: 05/25/25 Subjective Subjective Interval history: Overnight patient appeared to have some psychosis and was given olanzapine 5 mg PO x1.?Resumed home clozapine for tonight. Patient seen and examined at bedside this AM.?Patient was still requiring about 8L O2 this morning, maintaining mid 90s saturation. Patient was very sleepy this morning however woke up to baseline later on. Labs and vitals were reviewed.?First set of blood cultures from admission growing staph hominis, likely contaminant. Discontinued vancomycin. Continue patient on ceftriaxone. Will downtitrate methylprednisone. D5W was stopped as hypernatremia resolved. No further complaints at this time. Review of systems otherwise negative except what is mentioned above. Exam Vital Signs Temp Pulse Resp BP Pulse Ox O2 Del Method O2 Flow Rate 97.9 F 85 22 H 129/84 96 Oxy Mask 9 05/25/25 04:00 05/25/25 11:55 05/25/25 11:55 05/25/25 04:00 05/25/25 11:55 05/25/25 04:00 05/25/25 11:55 FiO2 96 05/24/25 17:00 Narrative Exam Physical Exam: General: Alert, no acute distress. Skin: Warm, dry, intact. Head: Normocephalic, atraumatic. Eye: Normal conjunctiva, PERRL. Throat: Oral mucosa moist. No obvious lesions in oropharynx. Cardiovascular: Regular rate and rhythm, no murmur, +S1/S2. Respiratory: Expiratory rattling sound, respirations unlabored, no crackles, no wheezing. Gastrointestinal: Soft, nontender, non-distended. No guarding or rebound tenderness. Extremities: No edema, no cyanosis, no clubbing. 2+ radial pulse bilaterally, 2+ pedal pulse bilaterally. Neuro: No focal deficits observed. Conversant, moving all extremities. No overt cerebellar signs/incoordination. Psychiatric: Cooperative, appropriate affect. Objective Labs 05/25/25 13:35 05/25/25 08:45 Labs: Laboratory Results - last 24 hr 05/25/25 05/25/25 08:45 13:35 WBC 13.6 H RBC 4.57 Hgb 13.8 Hct 41.7 MCV 91 MCH 30.2 MCHC 33.1 RDW Std Deviation 41.4 Plt Count 313 D Neut % (Auto) 73 Lymph % (Auto) 11 Reagan % (Auto) 6 Eos % (Auto) 0 Baso % (Auto) 2 Neut # (Auto) 9.9 H Lymph # (Auto) 1.4 Reagan # (Auto) 0.8 Eos # (Auto) 0.0 Baso # (Auto) 0.2 Immature Gran # (Auto) 1.31 H Absolute Nucleated RBC 0.00 Immature Gran % 10 H Nucleated RBC % 0 Sodium 144 Potassium 5.1 D Chloride 105 Carbon Dioxide 28.4 Anion Gap 11 BUN 12 Creatinine 0.6 Estim Creat Clear Calc 306.1 eGFR > 60 BUN/Creatinine Ratio 20 Glucose 160 H D Calculated Osmolality 289 Calcium 9.6 Corrected Calcium 9.6 Phosphorus 3.8 Magnesium 2.5 Total Bilirubin 0.5 AST 85 H ALT 52 H Alkaline Phosphatase 52 Total Protein 7.7 Albumin 4.5 D Globulin 3.2 Albumin/Globulin Ratio 1.4 Vancomycin Trough 5.3 ABG Interpretation ABG results: 05/20/25 05/21/25 05/21/25 22:58 03:36 07:36 ABG pH 7.20 L 7.44 D ABG pCO2 77 H* 40 D ABG pO2 67 L 240 H D ABG HCO3 30 H 27 H ABG O2 Saturation 90 L 101 H ABG Base Excess 0 3 VBG pH 7.36 VBG pCO2 50 VBG pO2 50 VBG Base Excess 2 05/21/25 05/21/25 05/21/25 11:08 17:27 18:20 ABG pH 7.41 7.30 L D 7.35 ABG pCO2 46 56 H D 54 H ABG pO2 172 H D 61 L D 107 D ABG HCO3 29 H 27 H 30 H ABG O2 Saturation 100 H 89 L 100 H ABG Base Excess 4 H 0 3 VBG pH VBG pCO2 VBG pO2 VBG Base Excess 05/22/25 05/22/25 05/23/25 05:03 18:41 05:03 ABG pH 7.36 7.37 7.40 ABG pCO2 52 H 53 H 50 H ABG pO2 92 61 L D 82 L D ABG HCO3 29 H 30 H 31 H ABG O2 Saturation 99 H 91 99 H ABG Base Excess 3 4 H 5 H VBG pH VBG pCO2 VBG pO2 VBG Base Excess 05/23/25 05/23/25 13:05 22:03 ABG pH 7.48 H 7.46 H ABG pCO2 42 46 ABG pO2 56 L* D 70 L ABG HCO3 31 H 32 H ABG O2 Saturation 92 95 ABG Base Excess 7 H 7 H VBG pH VBG pCO2 VBG pO2 VBG Base Excess Quality Measures Quality Measures sepsis Current suspected stage: ruled out Possible source: pulmonary Blood cultures ordered: yes Antibiotic ordered: Yes Assessment & Plan Assessment Current Active Medications: Generic Name Dose Route Start Last Admin Trade Name Freq PRN Reason Stop Dose Admin Acetaminophen 650 mg 05/21/25 00:37 Acetaminophen 325 Mg Tablet PO 06/20/25 00:36 Q6H PRN Fever >100.4 or pain 1-3 Hydrocodone Bitart/Acetaminophen 1 tab 05/21/25 00:42 Hydrocodone/Apap 5/325 Tablet PO 05/26/25 00:41 Q4HR PRN PAIN SCALE 4-6 (Moderate Protocol Albuterol/Ipratropium 3 ml 05/21/25 03:00 05/25/25 11:55 Albuterol/Ipratropium (Duoneb) Rt Jannie 3 Ml Nebu INH 06/20/25 02:59 3 ml Q4HRRT ANANDA Administration Bupropion HCl 300 mg 05/23/25 11:15 05/25/25 09:38 Bupropion Hcl Xl 150 Mg Tabcr PO 06/22/25 11:14 300 mg QDAY ANANDA Administration Clozapine 450 mg 05/25/25 21:00 Clozapine 50 Mg Tablet PO 06/24/25 20:59 HS ANANDA Divalproex Sodium 750 mg 05/24/25 21:00 05/24/25 21:56 Divalproex Sod Er 250 Mg Rosanne (Non-Formulary) PO 06/23/25 20:59 750 mg HS ANANDA Administration Protocol Enoxaparin Sodium 40 mg 05/21/25 10:45 05/25/25 09:38 Enoxaparin Sod Inj 40 Mg/0.4 Ml Syringe SC 06/04/25 10:44 40 mg BID ANANDA Administration Famotidine 20 mg 05/25/25 21:00 Famotidine 20 Mg Tablet PO 06/20/25 08:59 Q12HR ANANDA Gemfibrozil 600 mg 05/22/25 11:00 05/25/25 09:37 Gemfibrozil 600 Mg Tablet PO 06/21/25 10:59 600 mg BID ANANDA Administration Ceftriaxone Sodium/Dextrose 1 gm in 50 mls @ 100 mls/hr 05/21/25 21:00 05/24/25 21:53 Rocephin/D5w 1gm Iv Premix IV 05/28/25 20:59 100 mls/hr QDAY@2100 ANANDA Administration Fentanyl Citrate 2,500 mcg in 250 mls @ 2.5 mls/hr 05/22/25 18:25 05/23/25 16:00 Sublimaze Inj 2,500 Mcg/250 Ml Bag IV 05/26/25 04:19 0 mcg/hr .Q24H PRN 0 mls/hr PER PROTOCOL Titration Protocol 25 MCG/HR Labetalol HCl 10 mg 05/24/25 10:10 Labetalol Inj 5 Mg/Ml Vial 4 Ml IVP 06/23/25 10:09 Q4HR PRN SBP>180 [place] Carbonate 300 mg 05/24/25 10:15 05/25/25 09:37 [place] Carb 150 Mg Capsule PO 06/23/25 10:14 300 mg QDAY ANANDA Administration Methylprednisolone Sodium Succinate 40 mg 05/24/25 12:00 05/25/25 11:48 Methylprednisolone Sod Succ 40 Mg/Ml Vial IVP 05/31/25 11:59 40 mg Q6HR ANANDA Administration Nicotine 14 mg 05/21/25 09:00 05/25/25 09:38 Nicotine Patch 14 Mg/24 Hr Patch.Td24 TOP 06/20/25 08:59 14 mg QDAY ANANDA Administration Ondansetron HCl 4 mg 05/21/25 00:37 Ondansetron Inj 2 Mg/Ml Inj 2 Ml IVP 06/20/25 00:36 Q6H PRN NAUSEA OR VOMITING Protocol Prazosin HCl 1 mg 05/21/25 21:00 05/24/25 21:54 Prazosin Hcl 1 Mg Capsule PO 06/20/25 20:59 1 mg HS ANANDA Administration Sennosides 8.8 mg 05/22/25 09:00 05/25/25 09:39 Sennosides Syrup 8.8 Mg/5 Ml Udc PO 06/21/25 08:59 8.8 mg QDAY ANANDA Administration Protocol Plan 20-year-old male with past medical history of non-insulin dependent type 2 diabetes, morbid obesity, schizoaffective disorder follows Dr. Gomes psychiatrist in [place] was admitted on floor on 05/21/2025 with chief complaint of 3 to 4 days of diarrhea associated with vomiting. Patient was admitted initially on floor for sepsis rule out most likely secondary to pneumonia and eventually upgraded to ICU due to confusion and work of breathing in the setting of acute hypoxic hypercapnic respiratory failure requiring intubation. Now downgraded to medical floors for further management. #Acute hypercapnic hypoxic respiratory failure, improving #Intubated with mechanical ventilation s/p extubation 05/23 #s/p bronchoscopy 05/22 #Community-acquired pneumonia DDx: Community-acquired pneumonia, morbid obesity -Patient met 3/4 SIRS criteria with tachycardia tachypnea and fever he was on BiPAP when he presented with possible source of pneumonia confirmed on chest x-ray. Dx: -CT chest 05/20 shows extensive bilateral pneumonia -Cocci IgM negative -Sputum culture collected 05/21, shows mixed dwayne -Blood cultures collected 05/20 showed 1/2 staph hominis, likely contaminant -05/22 blood cultures negative -s/p bronchoscopy 05/22, which found erythematous and friable airways without clear obstructions -Bronchial lavage cultures collected 05/22 did not show growth -Patient extubated 05/23 -Completed 3 days of azithromycin [05/21?05/23] Rx -Continue with IV Rocephin [05/21?] -Vancomycin discontinued [05/22-05/25] -Tapered down methylprednisolone -DuoNebs as needed -DIRK and ANCA ordered, pending -Encouraged vaping cessation #History of schizoaffective disorder Dx - Patient has a longstanding history of schizoaffective disorder. Follows psychiatrist, Dr. Gomes in [place] who sees patients biweekly on Zoom and monthly in person. - Patient lithium levels noted to be 1.24 on 05/21 Rx -Continue with prazosin 1 mg at bedtime -Continue valproic acid 750 mg HS -Continue home lithium at 300 mg daily (home dose is 600 mg) -Continue home buproprion 300 mg daily -Continue home clozapine 450 mg HS #History of vaping -Patient currently vapes all day, uses [employer] -Per patient's partner, the patient has been vaping for at least 3 years, and has been smoking prior to that Rx -Nicotine patch -Counseled patient on vaping cessation as vaping may have contributed to the patient's extensive lung injury #Cardiomegaly Dx: -CT chest 05/21 showed enlarged heart -Echocardiogram 05/21 showed enlarged heart that is upper limit of normal range Rx: -Patient to follow up outpatient #Hepatosplenomegaly #Transaminitis DDx: MASLD Dx: -As noted in abdomen ultrasound on 2021 -CT chest 05/21 identified hepatomegaly with fatty infiltration, irregular liver contour, and with splenomegaly -AST 53, ALT 49, and ALP 49 on admission to ICU, noted elevations in AST and ALT since 2021 -Patient does take olanzapine at home, which is noted to increase liver enzymes -Hepatitis panel ordered 05/22, negative Rx: -Patient to follow up with outpatient GI #Abdominal boil -Patient has a boil on the pannus. Not draining. Rx -Closely monitor for drainage #ELIECER, resolved DDx: Septic ELIECER, prerenal -Creatinine 1.2 baseline 0.8 on admission to ICU -Creatinine improved to 1.0 on 05/21, continues to have good urine output -> 05/22 creatinine worsened to 1.6 and urine output significantly decreased 05/21-05/22 overnight Rx - Avoid nephrotoxic agents - Renally dose medication - Strict intake and output #Proteinuria, resolved DDx: Nephrotic syndrome, nephritic syndrome Dx: -Patient noted to have UA positive for 3+ protein on admission to ICU -Urine creatinine collected 05/21 noted to be 622 and urine total protein noted to be >250 -Repeat urine creatinine and urine protein within normal range Rx: -Patient to follow up outpatient #Polyuria DDx: Diabetes insipidus, diabetes mellitus, IV fluid hydration Dx: -Patient does take lithium at home and has been noted to frequently use restroom to urinate at home -Patient received multiple liters of fluid prior to ICU upgrade -Patient produced about 3.5 L of urine on 05/21 without use of any diuretic -UA positive for 3+ protein Rx: -Daily CMP -Encourage oral hydration as patient urinates out significant volume #Hypernatremia, resolved Dx: -Likely secondary to dehydration as patient drinks significant amount of water at home Rx: -Stopped D5W -Encourage oral fluid intake #Normocytic anemia Dx -Hemoglobin 12.2 Rx -PRBC if hemoglobin drop below 7 Rxx - Daily labs #History of pre-diabetes -Patient was taking metformin at home Dx: -A1c 5.5 Rx - Blood sugar checks Q6 hourly #Hypertriglyceridemia Dx -Triglycerides noted to be 305 on 05/22 Rx -Gemfibrozil 600 mg every 12 hours -Patient to follow up outpatient #Acute encephalopathy, resolved #Hypotension, resolved #NSTEMI type II #Intractable nausea and vomiting, resolved ICU health Maintenance: DVT prophylaxis: Lovenox 40 BID SQ (dosed for BMI) GI prophylaxis: Protonix 40 mg IV daily Diet: NPO Graves: PLACED Lines: Peripherals Drips: N/A Vent: N/A CODE STATUS: Full code Reason of hospitalization: [facility] in setting of morbid obesity. Patient plan of care was discussed with the attending physician, Dr. Bunch. Evie Oakes, PGY-3 Attending Provider Attestation/Addendum I have examined the patient, reviewed labs and imaging findings, discussed the case with the resident(s), and reviewed entered orders. I agree with the plan of care as outlined in this note, with these additional summaries/recommendations: Patient seen at bedside. No acute overnight events. Patient continues to have acute hypercapnic/hypoxic respiratory failure which is likely multifactorial. Patient still requiring 7 to 9 L of nasal cannula. We will continue to treat underlying etiologies and wean O2 requirement as tolerated. Etiologies for pulmonary symptoms include aspiration pneumonia/pneumonitis, vape induced lung injury, drug-induced lung injury, and least likely autoimmune. Patient is status post bronchoscopy and cultures showed no growth to date. Also possible patient may have a component of ITAOL and counseled on outpatient sleep study. Patient states he is going to quit vaping. Continue IV antibiotics, steroids, breathing treatments, chest PT, IS, and supplemental oxygen. Patient also diagnosed with bacteremia and awaiting speciation although may be contamination and will follow-up final results. Patient has extensive psychiatric history and follows psychiatrist in [place]. Will continue antipsychotics and patient will need close outpatient follow-up with psychiatry. Hypernatremia resolving. Patient updated on the plan and in agreement. All questions answered to satisfaction. Please see residents note for additional details and management. Dr. Alviia MD
[2025-05-25 14:50] LABS: Stool for WBCs Negative (Negative)
[2025-05-25] MEDS: cefTRIAXone/D5w 1gm IV premix 1 GM/50 ML BAG IV (20:44)
[2025-05-25] MEDS: FAMOTIDINE 20 MG TABLET PO (20:45)
[2025-05-25] MEDS: PRAZOSIN HCL 1 MG CAPSULE PO (20:46)
[2025-05-25] MEDS: DIVALPROEX SOD ER 250 MG TABER (NON-FORMULARY) 750 MG PO (20:49)
[2025-05-26] VITALS (11 sets, daily range): BP systolic 129–156; BP diastolic 69–90; PULSE 61–91; RESP 17–23; TEMP 36.1–36.6; O2SAT 94–98; BMI 43.7
[2025-05-26] MEDS: ALBUTEROL/IPRATROPIUM (Duoneb) RT SOL 3 ML NEBU INH ×6 (02:48→22:56)
[2025-05-26] MEDS: BuPROPion HCL XL 150 MG TABCR 300 MG PO (08:44)
[2025-05-26] MEDS: NICOTINE PATCH 14 MG/24 HR PATCH.TD24 TOP (08:44)
[2025-05-26] MEDS: LITHIUM CARB 150 MG CAPSULE 300 MG PO ×2 (08:44→20:53)
[2025-05-26] MEDS: SENNOSIDES SYRUP 8.8 MG/5 ML UDC PO (08:44)
[2025-05-26] MEDS: FAMOTIDINE 20 MG TABLET PO ×2 (08:44→20:53)
[2025-05-26] MEDS: ENOXAPARIN SOD INJ 40 MG/0.4 ML SYRINGE SC ×2 (08:44→20:55)
--- NOTE | 2025-05-26 13:57 | PD.RESPRO ---
Documentation for date of: 05/26/25 Subjective Subjective Interval history: Patient is seen and examined at bedside. On evaluation during the morning, patient is sleeping Repeat evaluation done later in the day and patient is back to his baseline, is still on oxygen, trying to wean him down Talk to his psychiatrist, Dr. Ramírez already in [place] and he recommended to hold venlafaxine and prazosin for now Recommended to continue clozapine 450 mg at bedtime, lithium 600 mg during nighttime, bupropion 300 mg daily Anticipating discharge in the next 24 to 48 hours with home oxygen. Exam Vital Signs Temp Pulse Resp BP Pulse Ox O2 Del Method O2 Flow Rate 96.9 F 74 20 156/90 H 98 Oxy Mask 4 05/26/25 05:34 05/26/25 11:18 05/26/25 11:18 05/26/25 05:34 05/26/25 11:18 05/26/25 05:34 05/26/25 11:18 FiO2 96 05/25/25 12:00 Narrative Exam General: Awake. HEENT: Normocephalic, atraumatic, mucous membranes moist. Heart: Regular rate and rhythm, no murmurs. Lungs: Clear to auscultation with no wheezing or crackles. Abdomen: Soft, nondistended, nontender, positive bowel sounds. ?No guarding or rebound tenderness. Neurologic: Alert and oriented x3, no gross neurological deficit, and patient able to move all 4 extremities. Extremities: No edema. Skin: No rash or ecchymoses. Objective Labs 05/27/25 05:26 05/26/25 21:40 Labs: Laboratory Results - last 24 hr 05/25/25 05/25/25 13:15 13:35 WBC 13.6 H RBC 4.57 Hgb 13.8 Hct 41.7 MCV 91 MCH 30.2 MCHC 33.1 RDW Std Deviation 41.4 Plt Count 313 D Neut % (Auto) 73 Lymph % (Auto) 11 [place] % (Auto) 6 Eos % (Auto) 0 Baso % (Auto) 2 Neut # (Auto) 9.9 H Lymph # (Auto) 1.4 [place] # (Auto) 0.8 Eos # (Auto) 0.0 Baso # (Auto) 0.2 Immature Gran # (Auto) 1.31 H Absolute Nucleated RBC 0.00 Immature Gran % 10 H Nucleated RBC % 0 Stool for White Cells Negative ABG Interpretation ABG results: 05/20/25 05/21/25 05/21/25 22:58 03:36 07:36 ABG pH 7.20 L 7.44 D ABG pCO2 77 H* 40 D ABG pO2 67 L 240 H D ABG HCO3 30 H 27 H ABG O2 Saturation 90 L 101 H ABG Base Excess 0 3 VBG pH 7.36 VBG pCO2 50 VBG pO2 50 VBG Base Excess 2 05/21/25 05/21/25 05/21/25 11:08 17:27 18:20 ABG pH 7.41 7.30 L D 7.35 ABG pCO2 46 56 H D 54 H ABG pO2 172 H D 61 L D 107 D ABG HCO3 29 H 27 H 30 H ABG O2 Saturation 100 H 89 L 100 H ABG Base Excess 4 H 0 3 VBG pH VBG pCO2 VBG pO2 VBG Base Excess 05/22/25 05/22/25 05/23/25 05:03 18:41 05:03 ABG pH 7.36 7.37 7.40 ABG pCO2 52 H 53 H 50 H ABG pO2 92 61 L D 82 L D ABG HCO3 29 H 30 H 31 H ABG O2 Saturation 99 H 91 99 H ABG Base Excess 3 4 H 5 H VBG pH VBG pCO2 VBG pO2 VBG Base Excess 05/23/25 05/23/25 13:05 22:03 ABG pH 7.48 H 7.46 H ABG pCO2 42 46 ABG pO2 56 L* D 70 L ABG HCO3 31 H 32 H ABG O2 Saturation 92 95 ABG Base Excess 7 H 7 H VBG pH VBG pCO2 VBG pO2 VBG Base Excess Quality Measures Quality Measures sepsis Current suspected stage: ruled out Possible source: pulmonary Blood cultures ordered: yes Antibiotic ordered: Yes Assessment & Plan Assessment Current Active Medications: Generic Name Dose Route Start Last Admin Trade Name Freq PRN Reason Stop Dose Admin Acetaminophen 650 mg 05/21/25 00:37 Acetaminophen 325 Mg Tablet PO 06/20/25 00:36 Q6H PRN Fever >100.4 or pain 1-3 Albuterol/Ipratropium 3 ml 05/21/25 03:00 05/26/25 11:10 Albuterol/Ipratropium (Duoneb) Rt Jannie 3 Ml Nebu INH 06/20/25 02:59 3 ml Q4HRRT ANANDA Administration Bupropion HCl 300 mg 05/23/25 11:15 05/26/25 08:44 Bupropion Hcl Xl 150 Mg Tabcr PO 06/22/25 11:14 300 mg QDAY ANANDA Administration Clozapine 450 mg 05/25/25 21:00 05/25/25 20:47 Clozapine 50 Mg Tablet PO 06/24/25 20:59 450 mg HS ANANDA Administration Divalproex Sodium 750 mg 05/24/25 21:00 05/25/25 20:49 Divalproex Sod Er 250 Mg Rosanne (Non-Formulary) PO 06/23/25 20:59 750 mg HS ANANDA Administration Protocol Enoxaparin Sodium 40 mg 05/21/25 10:45 05/26/25 08:44 Enoxaparin Sod Inj 40 Mg/0.4 Ml Syringe SC 06/04/25 10:44 40 mg BID ANANDA Administration Famotidine 20 mg 05/25/25 21:00 05/26/25 08:44 Famotidine 20 Mg Tablet PO 06/20/25 08:59 20 mg Q12HR ANANDA Administration Gemfibrozil 600 mg 05/22/25 11:00 05/26/25 08:43 Gemfibrozil 600 Mg Tablet PO 06/21/25 10:59 600 mg BID ANANDA Administration Ceftriaxone Sodium/Dextrose 1 gm in 50 mls @ 100 mls/hr 05/21/25 21:00 05/25/25 20:44 Rocephin/D5w 1gm Iv Premix IV 05/28/25 20:59 100 mls/hr QDAY@2100 ANANDA Administration Labetalol HCl 10 mg 05/24/25 10:10 Labetalol Inj 5 Mg/Ml Vial 4 Ml IVP 06/23/25 10:09 Q4HR PRN SBP>180 [place] Carbonate 300 mg 05/24/25 10:15 05/26/25 08:44 [place] Carb 150 Mg Capsule PO 06/23/25 10:14 300 mg QDAY ANANDA Administration Methylprednisolone Sodium Succinate 40 mg 05/26/25 09:00 05/26/25 08:45 Methylprednisolone Sod Succ 40 Mg/Ml Vial IVP 06/02/25 08:59 Not Given Q12HR ANANDA Nicotine 14 mg 05/21/25 09:00 05/26/25 08:44 Nicotine Patch 14 Mg/24 Hr Patch.Td24 TOP 06/20/25 08:59 14 mg QDAY ANANDA Administration Ondansetron HCl 4 mg 05/21/25 00:37 Ondansetron Inj 2 Mg/Ml Inj 2 Ml IVP 06/20/25 00:36 Q6H PRN NAUSEA OR VOMITING Protocol Prazosin HCl 1 mg 05/21/25 21:00 05/25/25 20:46 Prazosin Hcl 1 Mg Capsule PO 06/20/25 20:59 1 mg HS ANANDA Administration Sennosides 8.8 mg 05/22/25 09:00 05/26/25 08:44 Sennosides Syrup 8.8 Mg/5 Ml Udc PO 06/21/25 08:59 8.8 mg QDAY ANANDA Administration Protocol Plan 20-year-old male with past medical history of non-insulin dependent type 2 diabetes, morbid obesity, schizoaffective disorder follows Dr. Gomes psychiatrist in [place] was admitted on floor on 05/21/2025 with chief complaint of 3 to 4 days of diarrhea associated with vomiting. Patient was admitted initially on floor for sepsis rule out most likely secondary to pneumonia and eventually upgraded to ICU due to confusion and work of breathing in the setting of acute hypoxic hypercapnic respiratory failure requiring intubation. Now downgraded to medical floors for further management. #Acute hypercapnic hypoxic respiratory failure, improving #Intubated with mechanical ventilation s/p extubation 05/23 #s/p bronchoscopy 05/22 #Community-acquired pneumonia DDx: Community-acquired pneumonia, morbid obesity -Patient met 3/4 SIRS criteria with tachycardia tachypnea and fever he was on BiPAP when he presented with possible source of pneumonia confirmed on chest x-ray. Dx: -CT chest 05/20 shows extensive bilateral pneumonia -Cocci IgM negative -Sputum culture collected 05/21, shows mixed dwayne -Blood cultures collected 05/20 showed 1/2 staph hominis, likely contaminant -05/22 blood cultures negative -s/p bronchoscopy 05/22, which found erythematous and friable airways without clear obstructions -Bronchial lavage cultures collected 05/22 did not show growth -Patient extubated 05/23 -Completed 3 days of azithromycin [05/21?05/23] Rx -Continue with IV Rocephin [05/21?] -Vancomycin discontinued [05/22-05/25] -Tapered down methylprednisolone 40mg IVP Q12hr -DuoNebs as needed -DIRK and ANCA ordered, pending -Encouraged vaping cessation #History of schizoaffective disorder Dx - Patient has a longstanding history of schizoaffective disorder. Follows psychiatrist, Dr. Gomes in [place] who sees patients biweekly on Zoom and monthly in person. - Patient lithium levels noted to be 1.24 on 05/21 Rx -Talked with patient's psychiatrist Dr. Gomes in [place] and he recommended to hold prazosin, venlafaxine for now -Will continue valproic acid 750 mg HS -Continue lithium at 600 mg daily (home dose is 1200 mg) -Continue home buproprion 300 mg daily -Continue home clozapine 450 mg HS #History of vaping -Patient currently vapes all day, uses [employer] -Per patient's partner, the patient has been vaping for at least 3 years, and has been smoking prior to that Rx -Nicotine patch -Counseled patient on vaping cessation as vaping may have contributed to the patient's extensive lung injury #Cardiomegaly Dx: -CT chest 05/21 showed enlarged heart -Echocardiogram 05/21 showed enlarged heart that is upper limit of normal range Rx: -Patient to follow up outpatient #Hepatosplenomegaly #Transaminitis DDx: MASLD Dx: -As noted in abdomen ultrasound on 2021 -CT chest 05/21 identified hepatomegaly with fatty infiltration, irregular liver contour, and with splenomegaly -AST 53, ALT 49, and ALP 49 on admission to ICU, noted elevations in AST and ALT since 2021 -Patient does take olanzapine at home, which is noted to increase liver enzymes -Hepatitis panel ordered 05/22, negative Rx: -Patient to follow up with outpatient GI #Abdominal boil -Patient has a boil on the pannus. Not draining. Rx -Closely monitor for drainage #ELIECER, resolved DDx: Septic ELIECER, prerenal -Creatinine 1.2 baseline 0.8 on admission to ICU -Creatinine improved to 1.0 on 05/21, continues to have good urine output -> 05/22 creatinine worsened to 1.6 and urine output significantly decreased 05/21-05/22 overnight Rx - Avoid nephrotoxic agents - Renally dose medication - Strict intake and output #Proteinuria, resolved DDx: Nephrotic syndrome, nephritic syndrome Dx: -Patient noted to have UA positive for 3+ protein on admission to ICU -Urine creatinine collected 05/21 noted to be 622 and urine total protein noted to be >250 -Repeat urine creatinine and urine protein within normal range Rx: -Patient to follow up outpatient #Polyuria DDx: Diabetes insipidus, diabetes mellitus, IV fluid hydration Dx: -Patient does take lithium at home and has been noted to frequently use restroom to urinate at home -Patient received multiple liters of fluid prior to ICU upgrade -Patient produced about 3.5 L of urine on 05/21 without use of any diuretic -UA positive for 3+ protein Rx: -Daily CMP -Encourage oral hydration as patient urinates out significant volume #Hypernatremia, resolved Dx: -Likely secondary to dehydration as patient drinks significant amount of water at home Rx: -Stopped D5W -Encourage oral fluid intake #Normocytic anemia Dx -Hemoglobin 12.2 Rx -PRBC if hemoglobin drop below 7 Rxx - Daily labs #History of pre-diabetes -Patient was taking metformin at home Dx: -A1c 5.5 Rx - Blood sugar checks Q6 hourly #Hypertriglyceridemia Dx -Triglycerides noted to be 305 on 05/22 Rx -Gemfibrozil 600 mg every 12 hours -Patient to follow up outpatient #Acute encephalopathy, resolved #Hypotension, resolved #NSTEMI type II #Intractable nausea and vomiting, resolved Health Maintenance: DVT prophylaxis: Lovenox 40 BID SQ (dosed for BMI) GI prophylaxis: Protonix 40 mg IV daily Diet: Dysphagia 3 Graves: PLACED Lines: Peripherals CODE STATUS: Full code Reason of hospitalization:pneumonia Patient plan of care was discussed with the attending physician, Dr. Alivia Sauer, PGY2 Attending Provider Attestation/Addendum I have examined the patient, reviewed labs and imaging findings, discussed the case with the resident(s), and reviewed entered orders. I agree with the plan of care as outlined in this note, with these additional summaries/recommendations: Patient seen at bedside. No acute overnight events. Patient is noted to be very somnolent today. He has an extensive psychiatric history with frequent exacerbations during dosage changes of his antipsychotics. We will reach out to patient's psychiatrist to obtain more history and recommendations on antipsychotic medications. Patient continues to have acute hypercapnic/hypoxic respiratory failure which is likely multifactorial although improving. Patient down to 5 to 7 L nasal cannula today. Etiologies for pulmonary symptoms include aspiration pneumonia/pneumonitis, vape induced lung injury, drug-induced lung injury, and least likely autoimmune. Patient is status post bronchoscopy and cultures showed no growth to date. Also possible patient may have a component of ITALO and counseled on outpatient sleep study. Patient states he is going to quit vaping. Continue IV antibiotics, steroids, breathing treatments, chest PT, IS, and supplemental oxygen. Blood cultures speciated with Staphylococcus hominis which is most likely contamination and no further treatment needed for bacteremia. Hypernatremia resolving. Patient updated on the plan and in agreement. All questions answered to satisfaction. Please see residents note for additional details and management. Dr. Alivia MD
--- NOTE | 2025-05-26 14:15 | PC.NURSE ---
Carlos LINDSAY handed off patient with no IV access. ICU tried to insert ultra sound guided IV during his shift ICU could not find vein. Patient has no IV access. Will call ICU and see if someone can come down.
--- NOTE | 2025-05-26 15:22 | PC.SS ---
SS was informed by RNClarice that pt will need a 1:1 sitter for hx of SI per his psychiatrist Dr. Gomes however no SI has been disclosed at this time. SS consulted with Dr. Sauer to confirm if MHE is needed before DC, per Dr. Cristiane Gomes, psychiatrist recommends a 1:1 sitter, no need for MHE eval at this time. SS will remain available for any additional needs or concerns.
--- NOTE | 2025-05-26 15:59 | PC.NURSE ---
Lab tried to draw blood she could not get blood return. Lab will return later to try again.
--- NOTE | 2025-05-26 16:18 | PC.NURSE ---
Dr. jones came and notified me patient is on suicide precautions. She spoke to the patients psychiatrist and he explained for patients safety and our safety he needs to have a one on one patient. Patient spirals out of control quickly. I started ligature check list of patients room. Mom is upset and wants to speak to management. Will notify charge nurse
[2025-05-26] MEDS: DIVALPROEX SOD ER 250 MG TABER (NON-FORMULARY) 750 MG PO (20:54)
[2025-05-26 22:50] LABS: Alanine Aminotransferase 79 U/L (10-49); Albumin, Serum 4.4 gm/dL (3.5-5.0); Albumin/Globulin Ratio 1.4 (1.2-2.2); Alkaline Phosphatase 57 U/L (46-116); Anion Gap 9 (7-16); Aspartate Amino Transferase 84 U/L (0-34); BUN/Creatinine Ratio 20 Ratio (12-20); Bilirubin,Total 0.4 mg/dL (0.3-1.2); Blood Urea Nitrogen 14 mg/dL (9-23); Calcium 9.5 mg/dL (8.3-10.6); Calcium (Corrected) 9.5 mg/dL (8.5-10.1); Carbon Dioxide 25.7 mMol/L (20.0-31.0); Chloride 108 mMol/L (98-107); Creatinine (Component) 0.7 mg/dL (0.6-1.3); Estimated Creatinine Clearance 260.4 mL/min (>60); Globulin 3.1 gm/dL (2.3-3.5); Glucose 123 mg/dL (74-106); Magnesium 2.2 mg/dL (1.6-2.6); Osmolality,Calculated 286 (275-295); Phosphorous 3.6 mg/dL (2.4-5.1); Potassium 3.8 mMol/L (3.4-5.1); Sodium 143 mMol/L (136-145); Total Protein 7.5 gm/dL (5.7-8.2); eGFR > 60 See Note
[2025-05-26 23:03] LABS: Basophils # (Auto) 0.1 Thou/mm3 (0.0-0.2); Basophils % (Auto) 1 % (0-2.5); Eosinophils # (Auto) 0.1 Thou/mm3 (0.0-0.5); Eosinophils % (Auto) 1 % (0-10); Hematocrit 44.5 % (41.0-53.0); Hemoglobin 14.5 g/dL (13.5-16.0); Immature Granulocytes Auto 0.87 Thou/mm3 (0.00-0.00); Lymphocytes # (Auto) 2.8 Thou/mm3 (1.0-4.8); Lymphocytes % (Auto) 20 % (10-50); Mean Corpuscular HGB Conc 32.6 g/dl (31.0-37.0); Mean Corpuscular Hemoglobin 30.1 pg (25.0-35.0); Mean Corpuscular Volume 92 fL (80-100); Monocytes # (Auto) 1.1 Thou/mm3 (0.0-0.8); Monocytes % (Auto) 8 % (0-12); Neutrophils # (Auto) 9.5 Thou/mm3 (1.8-7.7); Neutrophils % (Auto) 65 % (37-80); Nucleated Red Blood Cell # 0.00 Thou/mm3 (0.00-0.00); Nucleated Red Blood Cell % 0 /100 WBC (0); Platelet Count 293 Thou/mm3 (140-440); RDW Standard Deviation 42.8 fL (35.1-43.9); Red Blood Count 4.82 Miln/mm3 (4.50-5.90); White Blood Count 14.6 Thou/mm3 (3.8-10.6)
[2025-05-27 01:00] VITALS: BP 130/75; PULSE 91; RESP 18; TEMP 36.3; O2SAT 98
[2025-05-27 02:21] VITALS: PULSE 78; PULSE 80; RESP 20; O2SAT 96; O2SAT 98
[2025-05-27] MEDS: ALBUTEROL/IPRATROPIUM (Duoneb) RT SOL 3 ML NEBU INH ×2 (02:21→06:12)
[2025-05-27 05:00] VITALS: BP 131/71; PULSE 76; RESP 20; TEMP 36.2; O2SAT 99
[2025-05-27 06:00] VITALS: BMI 43.1
[2025-05-27 06:15] VITALS: PULSE 74; PULSE 75; RESP 18; RESP 94; O2SAT 94
[2025-05-27 06:15] LABS: Basophils # (Auto) 0.1 Thou/mm3 (0.0-0.2); Basophils % (Auto) 1 % (0-2.5); Eosinophils # (Auto) 0.0 Thou/mm3 (0.0-0.5); Eosinophils % (Auto) 0 % (0-10); Hematocrit 42.0 % (41.0-53.0); Hemoglobin 13.7 g/dL (13.5-16.0); Immature Granulocytes Auto 0.56 Thou/mm3 (0.00-0.00); Lymphocytes # (Auto) 1.3 Thou/mm3 (1.0-4.8); Lymphocytes % (Auto) 12 % (10-50); Mean Corpuscular HGB Conc 32.6 g/dl (31.0-37.0); Mean Corpuscular Hemoglobin 30.7 pg (25.0-35.0); Mean Corpuscular Volume 94 fL (80-100); Monocytes # (Auto) 0.6 Thou/mm3 (0.0-0.8); Monocytes % (Auto) 6 % (0-12); Neutrophils # (Auto) 8.1 Thou/mm3 (1.8-7.7); Neutrophils % (Auto) 76 % (37-80); Nucleated Red Blood Cell # 0.00 Thou/mm3 (0.00-0.00); Nucleated Red Blood Cell % 0 /100 WBC (0); Platelet Count 227 Thou/mm3 (140-440); RDW Standard Deviation 43.5 fL (35.1-43.9); Red Blood Count 4.46 Miln/mm3 (4.50-5.90); White Blood Count 10.6 Thou/mm3 (3.8-10.6)
[2025-05-27 09:00] VITALS: BP 157/90; RESP 18; TEMP 36.1; O2SAT 94
[2025-05-27] MEDS: FAMOTIDINE 20 MG TABLET PO (09:13)
[2025-05-27] MEDS: SENNOSIDES SYRUP 8.8 MG/5 ML UDC PO (09:13)
[2025-05-27] MEDS: BuPROPion HCL XL 150 MG TABCR 300 MG PO (09:13)
[2025-05-27] MEDS: ENOXAPARIN SOD INJ 40 MG/0.4 ML SYRINGE SC (09:13)
[2025-05-27] MEDS: NICOTINE PATCH 14 MG/24 HR PATCH.TD24 TOP (09:13)
--- NOTE | 2025-05-27 09:30 | PC.SS ---
Addendum entered by Miri Velasquez 05/27/25 13:32: Pt was DC without O2 due to saturating well on room air per RN Clarice documentation Original Note: SS requested O2 test from Clarice LINDSAY. O2 testing guidelines provided to RN. Pending documentation to submit DME order.
[2025-05-27 09:33] LABS: Alanine Aminotransferase 94 U/L (10-49); Albumin, Serum 4.5 gm/dL (3.5-5.0); Albumin/Globulin Ratio 1.4 (1.2-2.2); Alkaline Phosphatase 58 U/L (46-116); Anion Gap 12 (7-16); Aspartate Amino Transferase 90 U/L (0-34); BUN/Creatinine Ratio 20 Ratio (12-20); Bilirubin,Total 0.5 mg/dL (0.3-1.2); Blood Urea Nitrogen 12 mg/dL (9-23); Calcium 9.7 mg/dL (8.3-10.6); Calcium (Corrected) 9.7 mg/dL (8.5-10.1); Carbon Dioxide 23.2 mMol/L (20.0-31.0); Chloride 108 mMol/L (98-107); Creatinine (Component) 0.6 mg/dL (0.6-1.3); Estimated Creatinine Clearance 301.3 mL/min (>60); Globulin 3.2 gm/dL (2.3-3.5); Glucose 152 mg/dL (74-106); Magnesium 2.3 mg/dL (1.6-2.6); Osmolality,Calculated 287 (275-295); Phosphorous 3.8 mg/dL (2.4-5.1); Potassium 5.0 mMol/L (3.4-5.1); Sodium 143 mMol/L (136-145); Total Protein 7.7 gm/dL (5.7-8.2); eGFR > 60 See Note
--- NOTE | 2025-05-27 11:00 | PC.NURSE ---
Patient on 2L O2 at rest stating at 94%. Patient at rest on room air stating at 91%. Patient sitting on the side of the bed on room air stating at 95%. Patient on room air ambulating stating at 96%
[2025-05-27 11:50] VITALS: BP 96/71; PULSE 87; RESP 18; TEMP 36.3; O2SAT 96
--- NOTE | 2025-05-27 14:30 | ESDS_ITS ---
Planned Discharge Date 05/27/25 DS: Providers Provider Date of admission: 05/21/25 00:37 Primary care physician: Desiree Byrd MD Admitting Provider: Naila Blair MD Attending Provider on Admission: Ayaka Hough MD Consults: 05/24/25 07:49 Referral Speech Therapy Routine Comment: Attending Provider on DC: Real Bunch MD Discharging Provider: Evie Oakes MD DS: Diagnosis Problem List Completed Was Problem List Reviewed/Reconciled?: Yes Hospital Course Hospital Course Hospital course: Reason for hospitalization: Acute hypoxic respiratory failure secondary to community acquired pneumonia requiring intubation Patient is a 20-year-old male with past medical history of prediabetes, morbid obesity, schizoaffective disorder, and bipolar disorder following with Dr. Gomes in [place] who was admitted to the medical floors on 05/21/2025 after 4 days of nausea, vomiting, and diarrhea and found to have significant bilateral pneumonia. Patient was at first admitted to the medical floors however quickly became hypoxic and hypercapneic unable to be treated with the BiPAP due to confusion and increased work of breathing therefore patient was intubated and brought to the ICU later the same night. Initial blood culture obtained from 05/20/2025 showed staph hominis however it was determined most likely to be a contaminant as subsequent cultures were negative. Bronchoscopy was done 05/22 due to desaturation event requiring 100% FiO2 and manual bagging at one point. Sputum culture, blood culture from 05/22, and bronchial washings culture from 05/22 are negative. The bronch showed extensive erythema and edema with narrowing of the airways on the L with some purulent discharge noted, there was some bleeding with lavage noted. Patient was treated with IV ceftriaxone and had good clinical response. Patient was extubated on 05/23 to high flow nasal cannula. It was questioned why the patient developed such an extensive pneumonia with his age, and possibilities including autoimmune disease and vape-associated lung injury were brought into question. ANCA screen was sent although pending at the time of discharge. Patient was downgraded to the medical floors on 05/24. He was resumed on all his home psych medications except for clozapine held by the ICU team due to lethargy after the extubation. Patient did have an episode of acute agitation on the night of 05/24 for which he received oral olanzapine and did well. Clozapine was resumed for the following night. Team discussed patient case with Dr. Gomes and provided updates, medications were continued as below, and patient was instructed to hold venlafaxine and prazosin for now. Patient did not express any self harm thoughts throughout hospitalization. Patient was then ready for discharge on 05/27, weaned completely off oxygen and mentating at baseline. Start medication: -Take amoxicillin-clavulanate (Augmentin) 875-125 mg twice daily for 3 more days for pneumonia Medication changes: -Hold venlafaxine until follow up with Dr. Gomes -Hold prazosin until follow up with Dr. Gomes Continue medications: -Continue clozapine 450 mg at bedtime -Continue lithium 600 mg at bedtime ? Your lithium level was 1.24 on 05/21/2025. -Continue buproprion 300 mg once daily -Continue valproic acid 750 mg at bedtime Follow ups: -Please follow up with Dr. Gomes your psychiatrist in the next 1-2 weeks -Please follow up with your PCP to obtain results of studies drawn while you were hospitalized here: ? ANCA Screen, Anti-Proteinase 3, Anti-Myeloperoxidase ? The studies above were drawn to investigate possible underlying risk factors for the severe pneumonia -Please obtain a referral to Pulmonology or Sleep Medicine doctor to get a sleep study done, as you may have some sleep apnea -Please obtain a referral to see a Power Chisel Operator as your CT scan and echocardiogram showed an enlarged heart more than normal range Instructions: -Losing weight is the best way to decrease your risk for many health conditions -Avoid vaping as this can damage your lungs and put you at risk for developing lung diseases Hospital Diagnoses: #Acute hypercapnic hypoxic respiratory failure, resolved #Intubated with mechanical ventilation s/p extubation 05/23 #s/p bronchoscopy 05/22 #Community-acquired pneumonia #Cardiomegaly #Hepatosplenomegaly #Transaminitis #Abdominal boil #ELIECER, resolved #Proteinuria, resolved #Polyuria #Hypernatremia #Normocytic anemia #History of pre-diabetes #History of schizoaffective disorder #History of vaping #Hypertriglyceridemia #Acute encephalopathy, resolved #Hypotension, resolved #NSTEMI, type II #Intractable nausea and vomiting, resolved Patient plan of care was discussed with the attending physician, Dr. Bunch. Evie Oakes, PGY-3 Time Spent with Patient Time attestation: Total time spent providing and/or coordinating discharge services: Time spent: Greater than 30 minutes Exam Vital Signs Temp Pulse Resp BP Pulse Ox O2 Del Method O2 Flow Rate 97.4 F 87 18 96/71 96 Aerosol Mask 4 05/27/25 11:50 05/27/25 11:50 05/27/25 11:50 05/27/25 11:50 05/27/25 11:50 05/27/25 05:00 05/27/25 05:00 FiO2 96 05/25/25 12:00 Narrative Exam General: Awake. HEENT: Normocephalic, atraumatic, mucous membranes moist. Heart: Regular rate and rhythm, no murmurs. Lungs: Clear to auscultation with no wheezing or crackles. Abdomen: Soft, nondistended, nontender, positive bowel sounds. ?No guarding or rebound tenderness. Neurologic: Alert and oriented x3, no gross neurological deficit, and patient able to move all 4 extremities. Extremities: No edema. Skin: No rash or ecchymoses. Discharge Plan Plan Patient Disposition: HOME (Self Care) Patient condition on transfer: Stable Care Plan Goals: Start medication: -Take amoxicillin-clavulanate (Augmentin) 875-125 mg twice daily for 3 more days for pneumonia Medication changes: -Hold venlafaxine until follow up with Dr. Gomes -Hold prazosin until follow up with Dr. Gomes Continue medications: -Continue clozapine 450 mg at bedtime -Continue lithium 600 mg at bedtime ? Your lithium level was 1.24 on 05/21/2025. -Continue buproprion 300 mg once daily -Continue valproic acid 750 mg at bedtime Follow ups: -Please follow up with Dr. Gomes your psychiatrist in the next 1-2 weeks -Please follow up with your PCP to obtain results of studies drawn while you were hospitalized here: ? ANCA Screen, Anti-Proteinase 3, Anti-Myeloperoxidase ? The studies above were drawn to investigate possible underlying risk factors for the severe pneumonia -Please obtain a referral to Pulmonology or Sleep Medicine doctor to get a sleep study done, as you may have some sleep apnea -Please obtain a referral to see a Power Chisel Operator as your CT scan and echocardiogram showed an enlarged heart more than normal range Instructions: -Losing weight is the best way to decrease your risk for many health conditions -Avoid vaping as this can damage your lungs and put you at risk for developing lung diseases Prescriptions/Referrals Prescriptions/Med Rec: Continued lithium carbonate 150 mg capsule 600 mg PO HS clozapine 100 mg tablet 450 mg PO HS Patient Comments: TAKE 4 TABLETS BY MOUTH EVERY DAY metformin 500 mg tablet 500 mg PO BID Patient Comments: TAKE ONE TABLET BY MOUTH TWICE DAILY FOR DIABETES bupropion HCl 150 mg tablet extended release 24 hr 300 mg PO .AM Patient Comments: TAKE ONE TABLET BY MOUTH EVERY MORNING divalproex 500 mg tablet extended release 24 hr 500 mg PO HS Patient Comments: TAKE 4 TABLETS BY MOUTH AT BEDTIME divalproex 250 mg tablet,delayed release (DR/EC) 250 mg PO HS Patient Comments: TAKE ONE TABLET BY MOUTH AT BEDTIME Held prazosin 1 mg capsule 1 mg PO QDAY Hold Instructions: Resume on 06/11/25. Hold as requested by Dr. Gomes until psych appointment venlafaxine 37.5 mg capsule,extended release 24hr 37.5 mg PO DAILY Hold Instructions: Resume on 06/11/25. Hold as requested by Dr. Gomes until psych appointment Patient Comments: TAKE ONE CAPSULE BY MOUTH EVERY DAY WITH FOOD venlafaxine 75 mg capsule,extended release 24hr 150 mg PO DAILY Hold Instructions: Resume on 06/11/25. Hold as requested by Dr. Gomes until psych appointment Patient Comments: TAKE ONE CAPSULE BY MOUTH EVERY DAY WITH FOOD Referrals: Desiree Byrd MD [Primary Care Provider, Family Practice] Patient/Caregiver Discharge Instructions Discharge Activity: activity as tolerated Other Discharge Activity Instructions:: Avoid vaping as this can damage your lungs and put you at risk for developing lung diseases Other Discharge Diet Instructions: Losing weight is the best way to decrease your risk for many health conditions Education Materials: What Is Pneumonia?, Treating Pneumonia, ED Pneumonia (Adult) Print Language: Welsh Stand Alone Forms: Brandi Award Info., Patient Portal Info Letter Discharge Order Discharge Orders: Discharge (Routine); Ordered 05/27/25 Ordered By: Evie Oakes Quality Discharge Quality Measures VTE prophylaxis Attestestation Attestation I have examined the patient, reviewed labs and imaging findings, discussed the case with the resident(s), and reviewed entered orders. I agree with the plan of care as outlined in this note. Time Spent: [address] Alivia MD
[2025-05-30 22:05] LABS: Source STOOL
[2025-06-01 06:18] LABS: ANCA Screen NEGATIVE (NEGATIVE); Myeloperoxidase Ab <1.0 AI (<1.0); Proteinase-3 Ab <1.0 AI (<1.0)
== END 2025-05-27 13:15 | disposition home or self-care (01) | DRG 208 ==
LOC: SERX 05-21 00:12 → SERHOLD 05-21 01:26 → S3NX 05-21 02:51 → S2SX 05-21 06:34 → S3NX 05-24 17:22
PROVIDERS: Student in an Organized Health Care Education/Training Program; Admitting Provider Student in an Organized Health Care Education/Training Program; Emergency Provider Emergency Medicine; PCP Family Medicine; Visit Provider Internal Medicine
DX: J96.01 Acute respiratory failure with hypoxia (principal); J18.9 Pneumonia, unspecified organism; E87.0 Hyperosmolality and hypernatremia; N17.9 Acute kidney failure, unspecified; E87.20 Acidosis, unspecified; R16.2 Hepatomegaly with splenomegaly, not elsewhere classified; F25.9 Schizoaffective disorder, unspecified; E66.01 Morbid (severe) obesity due to excess calories; D64.9 Anemia, unspecified; E11.9 Type 2 diabetes mellitus without complications; E78.1 Pure hyperglyceridemia; E86.0 Dehydration; E86.1 Hypovolemia; F17.200 Nicotine dependence, unspecified, uncomplicated; F31.9 Bipolar disorder, unspecified; F41.9 Anxiety disorder, unspecified; Z79.84 Long term (current) use of oral hypoglycemic drugs; Z79.899 Other long term (current) drug therapy
CPT/HCPCS: 36415; 36600; 51702; 71045; 71250; 71260; 80053; 80061; 80069; 80074; 80178; 80202; 80307; 80320; 81001; 82570; 82803; 83036; 83605; 83735; 83993; 84100; 84145; 84156; 84443; 84484; 85025; 86021; 86036; 86038; 86331; 86635; 86703; 87040; 87070; 87075; 87077; 87081; 87086; 87102; 87177; 87186; 87205; 87209; 87329; 87338; 87449; 87493; 87502; 87635; 92526; 92610; 93005; 93306; 94002; 94003; 94640; 94667; 96361; 96365; 96366; 96375; 99284; A4314; A4649; A9270; J0131; J0330; J0456; J0696; J1630; J1644; J1650; J1938; J2250; J2704; J2919; J3010; J3373; J3374; J3490; J7030; J7050; J7070; J7120; J7512; J7999; Q9967; G0480

== ENCOUNTER → 2025-06-04 | Outpatient (CLI) | payer BC, MEDICAID, SELFPAY ==
[2025-06-04 10:32] LABS: Misc Send Out* See Sep Rpt
[2025-06-04 11:12] LABS: Basophils # (Auto) 0.1 Thou/mm3 (0.0-0.2); Basophils % (Auto) 1 % (0-2.5); Eosinophils # (Auto) 0.2 Thou/mm3 (0.0-0.5); Eosinophils % (Auto) 3 % (0-10); Hematocrit 39.6 % (41.0-53.0); Hemoglobin 13.5 g/dL (13.5-16.0); Immature Granulocytes Auto 0.08 Thou/mm3 (0.00-0.00); Lymphocytes # (Auto) 2.1 Thou/mm3 (1.0-4.8); Lymphocytes % (Auto) 32 % (10-50); Mean Corpuscular HGB Conc 34.1 g/dl (31.0-37.0); Mean Corpuscular Hemoglobin 30.8 pg (25.0-35.0); Mean Corpuscular Volume 90 fL (80-100); Monocytes # (Auto) 0.8 Thou/mm3 (0.0-0.8); Monocytes % (Auto) 12 % (0-12); Neutrophils # (Auto) 3.4 Thou/mm3 (1.8-7.7); Neutrophils % (Auto) 51 % (37-80); Nucleated Red Blood Cell # 0.00 Thou/mm3 (0.00-0.00); Nucleated Red Blood Cell % 0 /100 WBC (0); Platelet Count 308 Thou/mm3 (140-440); RDW Standard Deviation 42.0 fL (35.1-43.9); Red Blood Count 4.38 Miln/mm3 (4.50-5.90); White Blood Count 6.7 Thou/mm3 (3.8-10.6)
[2025-06-04 11:43] LABS: Alanine Aminotransferase 206 U/L (10-49); Albumin, Serum 4.4 gm/dL (3.5-5.0); Albumin/Globulin Ratio 1.7 (1.2-2.2); Alkaline Phosphatase 84 U/L (46-116); Anion Gap 13 (7-16); Aspartate Amino Transferase 115 U/L (0-34); BUN/Creatinine Ratio 8 Ratio (12-20); Bilirubin,Total 0.4 mg/dL (0.3-1.2); Blood Urea Nitrogen < 5 mg/dL (9-23); Calcium 10.1 mg/dL (8.3-10.6); Calcium (Corrected) 10.1 mg/dL (8.5-10.1); Carbon Dioxide 25.3 mMol/L (20.0-31.0); Chloride 105 mMol/L (98-107); Creatinine (Component) 0.6 mg/dL (0.6-1.3); Globulin 2.6 gm/dL (2.3-3.5); Glucose 101 mg/dL (74-106); Osmolality,Calculated 282 (275-295); Potassium 3.8 mMol/L (3.4-5.1); Sodium 143 mMol/L (136-145); Thyroid Stimulating Hormone 0.92 uIU/mL (0.55-4.78); Total Protein 7.0 gm/dL (5.7-8.2); eGFR > 60 See Note
[2025-06-04 13:14] LABS: Lithium 0.27 mEq/L (1.00-1.20)
[2025-06-11 06:37] LABS: Valporic Acid (Depak)* 31.9 mg/L (50.0-100.0)
== END | disposition home or self-care (01) ==
PROVIDERS: PCP Family Medicine; Referring Provider Psychiatry & Neurology Child & Adolescent Psychiatry; Visit Provider Psychiatry & Neurology Child & Adolescent Psychiatry
DX: F25.1 Schizoaffective disorder, depressive type (principal)
CPT/HCPCS: 36415; 80053; 80159; 80164; 80178; 84443; 85025; 83789